=== PATIENT | male | born 1980 | race Caucasian/White ===

== ENCOUNTER 2024-09-22 14:31 | Inpatient (IN) | payer MEDICARE, SELFPAY ==
[2024-09-22] VITALS (14 sets, daily range): BP systolic 136–185; BP diastolic 84–122; BMI 22.2
[2024-09-22 09:02] LABS: % Basophils 0.4 % (0-2); % Immature Granulocytes 0.5 % (0-0.5); % Lymphocytes 6.1 % (20.5-51.1); % Monocytes 3.2 % (1.7-9.3); % Neutrophils 89.8 % (42.2-75.2); Absolute Basophils 0.1 10^3/uL (0-0.2); Absolute Immature Granulocytes 0.1 10^3/uL (0-0.05); Absolute Lymphocytes 0.9 10^3/uL (1.2-3.4); Absolute Monocytes 0.5 10^3/uL (0.1-0.6); Absolute Neutrophils 12.8 10^3/uL (1.4-6.5); Hematocrit 30.2 % (39.0-52.0); Hemoglobin 9.9 g/dL (13.0-18.0); Mean Corp Hgb Conc. 32.8 g/dL (33.0-37.0); Mean Corpuscular Hgb 28.9 pg (27.0-31.0); Mean Corpuscular Volume 88.3 fL (80.0-94.0); Mean Platelet Volume 11.3 fL (7.4-10.4); Nucleated Red Blood Cells % 0 % (-); Platelet Count 257 10^3/uL (130-400); Red Blood Cell Count 3.42 10^6/uL (4.70-6.10); White Blood Cell Count 14.2 10^3/uL (4.8-10.8)
[2024-09-22 09:34] LABS: ALT (SGPT) 35 U/L (0-50); AST (SGOT) 37 U/L (17-59); Albumin 4.1 g/dl (3.5-5.0); Alkaline Phosphatase 144 U/L (38-126); Blood Urea Nitrogen 40 mg/dl (9-20); Calcium 8.8 mg/dl (8.4-10.2); Carbon Dioxide 29 mmol/L (22-30); Chloride 103 mmol/L (98-107); Glucose 309 mg/dl (70-99); Potassium 4.8 mmol/L (3.5-5.1); Sodium 144 mmol/L (135-145); Total Bilirubin 0.8 mg/dl (0.2-1.3); Total Protein 6.8 g/dl (6.3-8.2); eGFR 58.15
[2024-09-22] MEDS: PEPCID 20 MG IV (11:17)
[2024-09-22] MEDS: ZOFRAN 4 MG IV (11:17)
[2024-09-22] MEDS: NSS 1000 IV ×2 (11:17→17:49)
--- NOTE | 2024-09-22 11:36 | ED.GENMED ---
History of Present Illness
<Rupert Acosta Jr., PA-C - Last Filed: 09/22/24 14:59>
General
Chief Complaint: Abdominal Symptoms
Source: patient
Exam Limitations: none
Time Seen by Provider: 09/22/24 10:20
Nursing documentation reviewed up to this point in time: agreed with
History of Present Illness
History of Present Illness:
43-year-old male past medical history of CHF, hypertension, diabetes presenting to the emergency department today with concerns of vomiting diarrhea over the past 3 days. Trouble keeping anything down by mouth. Denies any chest pain shortness of
breath. No abdominal pain.
Past History
<Rupert Acosta Jr., PA-C - Last Filed: 09/22/24 14:59>
Past History
ED Past Medical History: HTN and NIDDM
Social History
Tobacco: Smoker
Review of Systems
<Rupert Acosta Jr., PA-C - Last Filed: 09/22/24 14:59>
Review of Systems
Allergies reviewed?: Yes
All Other Systems: ROS reviewed and negative except as documented in HPI and ROS
Phy Exam
<Rupert Acosta Jr., PA-C - Last Filed: 09/22/24 14:59>
Physical Exam
Physical Exam:
GENERAL: Alert , in no apparent distress
EYE: pupils equal and reactive
NECK: Supple, no significant adenopathy.
ENT: o/p clr, mmm.
CARDIAC: Regular rate and rhythm .
LUNGS: Clear breath sounds bilaterally, no acute respiratory distress, no wheezes/rales/rhonchi
ABDOMEN: Soft, without focal tenderness, no r/g, no cvat
NEUROLOGICAL: Alert and oriented, no focal neuro deficits
SKIN: Warm and dry, skin intact.
MUSCULOSKELETAL: No edema, well perfused.
PSYCH: Normal and appropriate interaction.
Course
<Rupert Acosta Jr., NIXON - Last Filed: 09/22/24 14:59>
Orders/Labs/Results
Orders:
Orders
09/22/24 08:56
Complete Blood Count/With Diff Urgent
Comprehensive Metabolic Panel Urgent
Lipase Urgent
09/22/24 10:31
0.9% Sodium Chloride 1000 ml [Nss] 1,000 ml IV BOLUS
Famotidine [Pepcid] 20 mg IV NOW STA
Ondansetron Injectable [Zofran] 4 mg IV NOW STA
09/22/24 11:37
Bedside Glucose- Treatment ONCE
0.9% Sodium Chloride 500 ml [Nss] 500 ml IV BOLUS
09/22/24 11:48
Electrocardiogram (*1) Urgent
Reason for Study: Shortness of Breath
EKG- Treatment ONCE
09/22/24 11:49
NT-proBNP Urgent
09/22/24 13:11
CR Chest Portable - 1 View Urgent
Comment:
Reason For Exam: hypoxia
Reason Study Needs to be Portable: Unable to Transport
09/22/24 13:30
Insulin Human Regular [Novolin R] 7 units IV NOW STA
09/22/24 13:36
Add On- LAB Urgent
Tests Added?: lipase
09/22/24 13:43
Norovirus by PCR Routine
SEBASTIAN Source: Feces/Stool
Specimen Description:
Azithromycin 500 mg/250 ml [Zithromax Infusion] 500 mg in 250 ml IV NOW
CefTRIAXone [Rocephin] 2,000 mg IV NOW STA
09/22/24 13:56
Obtain Records As Directed
Dates of Information to be Released: 2024
Type of Information Requested: Discharge Summary
Consults
Comment: from [facility]
09/22/24 13:[address] Non Medication Order As Directed
Physician Order: please TT me when med rec complete
09/22/24 13:58
COVID-19 Antigen Urgent
Source: Nasal Swab
Lactic Acid Urgent
Troponin I Urgent
Influenza A+B Rapid Molecular Urgent
SEBASTIAN Source: Nasal Swab
Specimen Description:
09/22/24 13:59
Legionella Urinary Antigen Routine
SEBASTIAN Source: Urine
Specimen Description:
Strep pneumoniae Antigen Routine
SEBASTIAN Source: Urine
Specimen Description:
09/22/24 14:02
Admit/Transfer Patient As Directed
Co-Sign Provider:
Level of Care: Inpatient admission
Assign to:: Telemetry
Physician / Group: Jena Castillo
Diagnosis: hypoxic resp insufficiency
Reason for Telemetry: Chest Pain syndromes
Date to Stop Telemetry: 09/24/24
Time to Stop Telemetry: 11:00
Reason for Hospitalization: hypoxic resp insufficiency
Expected length of stay greater than two midnights?: Yes
ELOS- Estimated Length of Stay in days: 3
I certify the patient meets the requirements for IP care: Yes
PRN Pain Medication Management As Directed
May give lesser potent ordered pain med per pt: Yes
preference::
Protocol:: Medication orders for pain may be administered in a
manner that supports deferring to patient preference
when the pt is:
- Requesting an ordered lesser potent pain medication.
Least to most potent pain medications are defined
as: acetaminophen < NSAID < tramadol < opioids
(morphine, oxycodone, hydromorphone).
- Requesting a lesser dose of the same medication IF
ORDERED.
- Requesting a less intrusive route of administration
if both routes are prescribed by the provider (PO <
IV).
09/22/24 14:03
Code Status As Directed
Resuscitation Status: Full Code
09/22/24 14:04
C DIFF [C difficile Antigen & Toxins] Urgent
SEBASTIAN Source: Feces/Stool
Specimen Description:
Stool Culture Routine
SEBASTIAN Source: Feces/Stool
Specimen Description:
Sterile Water [Sterile Water For Injection] 20 ml .ROUTE .STK-MED
09/22/24 14:16
Norovirus by PCR Urgent
SEBASTIAN Source: Feces/Stool
Specimen Description:
09/22/24 14:19
Insulin Human Regular [Novolin R] 7 units SC NOW STA
09/22/24 14:21
Procalcitonin Routine
PCT Algorithmm Indication: Respiratory
09/22/24 14:29
Oseltamivir Phosphate [Tamiflu] 75 mg PO NOW STA
09/22/24 14:31
Prochlorperazine [Compazine] 5 mg IV NOW STA
09/24/24 11:00
DC Protocol for Telemetry ONCE
Abnormal Lab Results
09/22/24 09/22/24 09/22/24
08:56 11:58 13:58
WBC 14.2 H 10^3/uL
(4.8-10.8)
RBC 3.42 L 10^6/uL
(4.70-6.10)
Hgb 9.9 L g/dL
(13.0-18.0)
Hct 30.2 L %
(39.0-52.0)
MCHC 32.8 L g/dL
(33.0-37.0)
MPV 11.3 H fL
(7.4-10.4)
Abs Immat Gran (auto) 0.1 H 10^3/uL
(0-0.05)
Absolute Neuts (auto) 12.8 H 10^3/uL
(1.4-6.5)
Absolute Lymphs (auto) 0.9 L 10^3/uL
(1.2-3.4)
Neutrophils % 89.8 H %
(42.2-75.2)
Lymphocytes % 6.1 L %
(20.5-51.1)
BUN 40 H mg/dl
(9-20)
Creatinine 1.5 H mg/dL
(0.7-1.3)
Glucose 309 H mg/dl
(70-99)
Alkaline Phosphatase 144 H U/L
(38-126)
Troponin I 0.076 H* ng/ml
POC Glucose 284 H mg/dl
(70-99)
09/22/24 08:56
09/22/24 08:56
Vital Signs
Initial and Last Documented VS:
Initial Vital Signs
Temp Pulse Resp BP Pulse Ox
98.7 F 105 16 185/117 95
09/22/24 08:46 09/22/24 08:46 09/22/24 08:46 09/22/24 08:46 09/22/24 08:46
Last Documented Vital Signs
Temp Pulse Resp BP Pulse Ox
98.7 F 91 19 174/106 94
09/22/24 08:46 09/22/24 14:30 09/22/24 14:30 09/22/24 14:00 09/22/24 14:37
<Curtis Taylor MD - Last Filed: 09/22/24 13:38>
Orders/Labs/Results
Orders:
Orders
09/22/24 08:56
Complete Blood Count/With Diff Urgent
Comprehensive Metabolic Panel Urgent
Lipase Urgent
09/22/24 10:31
0.9% Sodium Chloride 1000 ml [Nss] 1,000 ml IV BOLUS
Famotidine [Pepcid] 20 mg IV NOW STA
Ondansetron Injectable [Zofran] 4 mg IV NOW STA
09/22/24 11:37
Bedside Glucose- Treatment ONCE
0.9% Sodium Chloride 500 ml [Nss] 500 ml IV BOLUS
09/22/24 11:48
Electrocardiogram (*1) Urgent
Reason for Study: Shortness of Breath
EKG- Treatment ONCE
09/22/24 11:49
NT-proBNP Urgent
09/22/24 13:11
CR Chest Portable - 1 View Urgent
Comment:
Reason For Exam: hypoxia
Reason Study Needs to be Portable: Unable to Transport
09/22/24 13:30
Insulin Human Regular [Novolin R] 7 units IV NOW STA
09/22/24 13:36
Add On- LAB Urgent
Tests Added?: lipase
09/22/24 13:43
Norovirus by PCR Routine
SEBASTIAN Source: Feces/Stool
Specimen Description:
Azithromycin 500 mg/250 ml [Zithromax Infusion] 500 mg in 250 ml IV NOW
CefTRIAXone [Rocephin] 2,000 mg IV NOW STA
09/22/24 13:56
Obtain Records As Directed
Dates of Information to be Released: 2024
Type of Information Requested: Discharge Summary
Consults
Comment: from [facility]
09/22/24 13:[address] Non Medication Order As Directed
Physician Order: please TT me when med rec complete
09/22/24 13:58
COVID-19 Antigen Urgent
Source: Nasal Swab
Lactic Acid Urgent
Troponin I Urgent
Influenza A+B Rapid Molecular Urgent
SEBASTIAN Source: Nasal Swab
Specimen Description:
09/22/24 13:59
Legionella Urinary Antigen Routine
SEBASTIAN Source: Urine
Specimen Description:
Strep pneumoniae Antigen Routine
SEBASTIAN Source: Urine
Specimen Description:
09/22/24 14:02
Admit/Transfer Patient As Directed
Co-Sign Provider:
Level of Care: Inpatient admission
Assign to:: Telemetry
Physician / Group: Jena Castillo
Diagnosis: hypoxic resp insufficiency
Reason for Telemetry: Chest Pain syndromes
Date to Stop Telemetry: 09/24/24
Time to Stop Telemetry: 11:00
Reason for Hospitalization: hypoxic resp insufficiency
Expected length of stay greater than two midnights?: Yes
ELOS- Estimated Length of Stay in days: 3
I certify the patient meets the requirements for IP care: Yes
PRN Pain Medication Management As Directed
May give lesser potent ordered pain med per pt: Yes
preference::
Protocol:: Medication orders for pain may be administered in a
manner that supports deferring to patient preference
when the pt is:
- Requesting an ordered lesser potent pain medication.
Least to most potent pain medications are defined
as: acetaminophen < NSAID < tramadol < opioids
(morphine, oxycodone, hydromorphone).
- Requesting a lesser dose of the same medication IF
ORDERED.
- Requesting a less intrusive route of administration
if both routes are prescribed by the provider (PO <
IV).
09/22/24 14:03
Code Status As Directed
Resuscitation Status: Full Code
09/22/24 14:04
C DIFF [C difficile Antigen & Toxins] Urgent
SEBASTIAN Source: Feces/Stool
Specimen Description:
Stool Culture Routine
SEBASTIAN Source: Feces/Stool
Specimen Description:
Sterile Water [Sterile Water For Injection] 20 ml .ROUTE .STK-MED
09/22/24 14:16
Norovirus by PCR Urgent
SEBASTIAN Source: Feces/Stool
Specimen Description:
09/22/24 14:19
Insulin Human Regular [Novolin R] 7 units SC NOW STA
09/22/24 14:21
Procalcitonin Routine
PCT Algorithmm Indication: Respiratory
09/22/24 14:29
Oseltamivir Phosphate [Tamiflu] 75 mg PO NOW STA
09/22/24 14:31
Prochlorperazine [Compazine] 5 mg IV NOW STA
09/24/24 11:00
DC Protocol for Telemetry ONCE
Abnormal Lab Results
09/22/24 09/22/24 09/22/24
08:56 11:58 13:58
WBC 14.2 H 10^3/uL
(4.8-10.8)
RBC 3.42 L 10^6/uL
(4.70-6.10)
Hgb 9.9 L g/dL
(13.0-18.0)
Hct 30.2 L %
(39.0-52.0)
MCHC 32.8 L g/dL
(33.0-37.0)
MPV 11.3 H fL
(7.4-10.4)
Abs Immat Gran (auto) 0.1 H 10^3/uL
(0-0.05)
Absolute Neuts (auto) 12.8 H 10^3/uL
(1.4-6.5)
Absolute Lymphs (auto) 0.9 L 10^3/uL
(1.2-3.4)
Neutrophils % 89.8 H %
(42.2-75.2)
Lymphocytes % 6.1 L %
(20.5-51.1)
BUN 40 H mg/dl
(9-20)
Creatinine 1.5 H mg/dL
(0.7-1.3)
Glucose 309 H mg/dl
(70-99)
Alkaline Phosphatase 144 H U/L
(38-126)
Troponin I 0.076 H* ng/ml
POC Glucose 284 H mg/dl
(70-99)
09/22/24 08:56
09/22/24 08:56
Vital Signs
Initial and Last Documented VS:
Initial Vital Signs
Temp Pulse Resp BP Pulse Ox
98.7 F 105 16 185/117 95
09/22/24 08:46 09/22/24 08:46 09/22/24 08:46 09/22/24 08:46 09/22/24 08:46
Last Documented Vital Signs
Temp Pulse Resp BP Pulse Ox
98.7 F 91 19 174/106 94
09/22/24 08:46 09/22/24 14:30 09/22/24 14:30 09/22/24 14:00 09/22/24 14:37
<Rupert Acosta Jr., PA-C - Last Filed: 09/22/24 14:59>
MDM/Problems Addressed
MDM/Problems Addressed:
43-year-old male presenting to the emergency department today with concerns of nausea vomiting diarrhea over the past 3 days. Difficulty tolerating by mouth. On arrival here mildly tachycardic and hypertensive. Not able to take his normal blood
pressure medication. Otherwise slight white count hemoglobin 9.9 not far from baseline. Creatinine 1.5 BUN of 40. Fluids were about to be started when we noticed that the patient's pulse ox seem to be dropping. Patient claims that he felt
somewhat short of breath and does have a history of heart failure concerning this the fluids were immediately stopped. He received less than 200 mL of fluid at this point. There was concern of fluid overload despite the patient's lack of oral
intake over the past few days. He was then given a dose of insulin to help with his elevated sugar level. Additional BNP was elevated significantly to greater than 27,000. Chest x-ray potential increased pulmonary vascular markings concern for
fluid overload. Holding on Lasix at this time as he also may be somewhat intravascular dehydrated as well and also may have an BELLO that we do not have any recent renal function test. Otherwise patient will need to be admitted due to hypoxemia and
multiple acute illnesses.
<Rupert Acosta Jr., PA-C - Last Filed: 09/22/24 14:59>
*Critical Care Note
Total Time (30-74mins, 75-104mins- exclusive of procedures): Not Applicable
ED Attending Note
<Rupert Acosta Jr., PA-C - Last Filed: 09/22/24 14:59>
-
Portions of this chart may have been created with voice recognition software.� Occasional wrong word or��sound alike� substitutions may have occurred due to the inherent limitations of voice recognition software.
<Curtis Taylor MD - Last Filed: 09/22/24 13:38>
ED Attending Note
Patient seen and examined by attending physician: Yes
ED Attending Note:
I have seen and evaluated the patient with a [id number] encounter. I have spoken to the advance practicer provider and involved in the medical history, the physical exam, medical decision making.
Evaluation and management service: agree unless noted differently below.
Results interpretation: agree unless noted differently below.
Focused HPI: 43-year-old male with a past medical history of hypertension, insulin-dependent diabetes, CHF who presents to the emergency room for evaluation of nausea and vomiting, diarrhea. Patient reports symptoms started 2 days ago and have been
constant. Because of his nausea and vomiting he has not been able to take fluids and he has not been able to take his Lasix. He says he has not been using his insulin because he has not been able to eat. Came to the emergency room to be
evaluated. He has also had some increased shortness of breath and coughing. He denies any weight gain. He denies any significant swelling of the legs.
Physical exam: Patient is awake and alert. He is not in distress. He is hypertensive, mildly tachycardic. He is hypoxic in the mid 80s requiring 2 L nasal cannula. Respiratory rate acceptable. He is afebrile. He has rales throughout all lung
veloz. He does have trace edema around the ankles. He has a small wound on the right second toe. He has no abdominal tenderness. Mucous membranes are slightly dry.
Medical Decision Makin-year-old male presents with nausea, vomiting, diarrhea and resultant medication noncompliance; he has now developed some shortness of breath and coughing as well. Vitals and exam as above. Labs were sent off including a
CBC which shows leukocytosis, CMP which shows creatinine of 1.5�prior baseline from 2014 and 0.6 but no more recent baseline available for comparison. His BUN is elevated which suggest some degree of dehydration. He is hyperglycemic to 309.
However he does appear to have some mild heart failure with hypoxia, rales on exam, proBNP of greater than 27,000. Chest x-ray showed no fatmata edema. 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
variability; he does have B-lines in both lungs consistent with some pulmonary edema. While history of GI losses would suggest intravascular hypovolemia findings concerning for decompensated heart failure on exam as well�he was given a small fluid
bolus will defer further fluids. Provide insulin for hyperglycemia. Will admit to hospitalist for further management of respiratory failure from suspected CHF as well as nausea/vomiting/diarrhea from suspected gastroenteritis.
Discharge Plan
Departure
Patient Disposition: Admit
Date of Disposition: 09/22/24
Time of Disposition: 14:02
Admit to doctor: Jonathan
Presentation/result/management discussed w/ accepting MD/DO: Hospitalist
Patient with high blood pressure during this ER visit?: No
Condition: Fair
Covid-19: Not Applicable
Discharge Problem:
CHF (congestive heart failure), Acute hypoxic respiratory failure, Nausea & vomiting
Interventions
Interventions:
*Risk Screen - Suicide Last Done: 09/22/24 08:47
*General Assessment Last Done: 09/22/24 11:17
*Neglect/Abuse Screening Last Done: 09/22/24 08:47
ED- Fall Risk Assessment Last Done: 09/22/24 11:17
*ED COVID-19 Vaccine History Last Done: 09/22/24 11:17
QX-Gicswt-Wjisywspdc Assessment Last Done: 09/22/24 11:17
[2024-09-22 11:59] LABS: Glucose - Point of Care 284 mg/dl (70-99)
[2024-09-22 12:20] LABS: NT-proBNP > 27000 pg/ml
--- NOTE | 2024-09-22 13:37 | HPS.HSE ---
Addendum entered and electronically signed by Jena Castillo MD 09/22/24 15:41:
Non-ischemic Troponin Elevation
-no chest pain
-give one time aspirin
-will continue to trend
Addendum entered and electronically signed by Jena Castillo MD 09/22/24 14:29:
Flu positive - explains symptoms
-will start Tamiflu
Original Note:
Family Physician
-
Family Physician: NOT KNOW UNKNOWN - PT DOES
Chief Complaint
-
vomiting and diarrhea
History of Present Illness
Mr. Edmund Marshall is a 43 yo man with hx essential HTN, HLD, DM, HF, hx recent renal failure requiring temporary dialysis, presents to the ER complaining of vomiting and diarrhea over past 3 days.
Patient states that several weeks ago he was hospitalized at [facility] for similar GI symptoms that resolved. He got fluids and then lasix. He was then hospitalized again 2 weeks ago for kidney failure with elevated potassium levels and
required brief dialysis.
He was feeling back to baseline until Thursday started to have vomiting and diarrhea. He has not been taking Lasix or Insulin because he has not been eating. Last time had had vomiting and diarrhea was just prior to coming into the ER. When asked
why he came to [place] and didn't go back to [facility], he states it is because he lives closer to here.
Patient denies fever. He has had some cough and congestion. No chest pain. No shortness of breath. No abdominal pain. No LE swelling. Denies weight gain.
Medical History
Past Medical History
Past Medical History: Reports Other (essential HTN, HLD, DM, HF)
Past Surgical History: Reports None
Social History
Tobacco: Former Smoker
Alcohol: Former
Family History
Family History: Not pertinent
Allergies / Home Medications
Allergies reflects when Allergies were last updated in [facility].
Home Medications with original date entered in [facility]
Allergy/Medication List:
*awaiting med rec
Review of Systems
-
History Source: Patient
A 12 point ROS was completed and negative except as noted: Yes
Physical Exam
Vital Signs
Vital Signs
Temp Pulse Resp BP Pulse Ox
98.7 F 102 10 176/107 91
09/22/24 08:46 09/22/24 13:27 09/22/24 13:27 09/22/24 13:27 09/22/24 13:27
Physical Exam
General: No Apparent Distress and Conversant
HEENT: PERRLA
Respiratory: Rales; No Wheezes
Cardiac: S1/S2, Regular Rhythm and JVD (difficult to appreciate JVD )
GI: Soft and Non Tender
Musculoskeletal: Other (trace pedal edema )
Skin: Warm and Dry; No Rash
Neuro: AO x 3
Psych: Calm
Laboratory Results
-
09/22/24 08:56
09/22/24 08:56
Laboratory Results
Total Bilirubin 0.8 mg/dl (0.2-1.3) 09/22/24 08:56
AST 37 U/L (17-59) 09/22/24 08:56
ALT 35 U/L (0-50) 09/22/24 08:56
Alkaline Phosphatase 144 U/L (38-126) H 09/22/24 08:56
Data Reviewed
-
Diagnostic Radiology: Report Reviewed by me
Lab Data: Labs Reviewed by me
Impression/Plan
-
Mr. Edmund Marshall is a 43 yo man with hx essential HTN, HLD, DM, HF, hx recent renal failure requiring temporary dialysis, presents to the ER complaining of vomiting and diarrhea over past 3 days. He is found to be hypoxic requiring 4L O2 in the
ER.
Triage VS: T 988, P 105, RR 16, BP 185/117, SpO2 95%
LABS: WBC 14.2, Hg 9.9, PLT 257, Na 144, K+ 4.8, BUN 40, Cr 1.5, Glucose 309, T. Bili 0.8, AST 37, ALT 35, Alk Phos 144, BNP > 67171
CXR -
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
EKG: sinus tachycardia
MAR: insulin 7units, NS 250cc, zofran 4mg IV x 1
Nausea/Vomiting/Diarrhea
-symptoms on-going over past 2 days
-Covid and Flu pending
-will also test Norovirus, C. Diff and stool culture
-supportive care with gentle IVF
-clear liquid diet
Hypoxic Respiratory Insufficiency
Community Acquired Pneumonia
-bedside POC US per ER showed signs volume overload although patient does not look overloaded on exam with normal respirations and I cannot appreciate JVD
-very gentle fluids as above (patient instructed to report if increased work of breathing)
-concern for pneumonia versus aspiration pneumonitis with recent vomiting
-continue antibiotics Cef/Azithro
-follow up Procalcitonin
-O2 support as needed
Heart Failure, Unknown EF
-as above, patient doesn't seem clinically to be in acute exacerbation
-hold home Lasix (awaiting home med rec)
-will repeat echo here
BELLO versus CKD
Recent hospitalization for renal Failure at [facility]
-*requesting outside records
-gentle IVF as above
-hold [employer] lasix
DM
-F/U A1c
-patient states he takes 14 units 70/30 in AM and 7 in evening
-will start NPH 5 units BID here for now with ISS low
-ISS low
HLD
*awaiting home med rec
DVT PPx Hep subQ
FULL CODE
76 minutes spent on patient care
[2024-09-22] MEDS: ROCEPHIN 2000 MG IV (14:06)
[2024-09-22] MEDS: ZITHROMAX INFUSION 250 IV (14:06)
[2024-09-22] MEDS: NOVOLIN R 7 UNITS SC (14:21)
[2024-09-22 14:26] LABS: COVID-19 Antigen Negative (Negative)
[2024-09-22 14:29] LABS: Lactic Acid 1.3 mmol/L (0.7-2.0)
[2024-09-22] MEDS: COMPAZINE 5 MG IV (14:51)
[2024-09-22] MEDS: TAMIFLU 75 MG PO (14:51)
[2024-09-22 14:55] LABS: Troponin I 0.076 ng/ml
[2024-09-22 15:14] LABS: Procalcitonin 0.24 ng/ml (0.0-0.25)
[2024-09-22 15:16] LABS: Lipase 53 U/L (23-300)
[2024-09-22] MEDS: LOW STRENGTH ASPIRIN 162 MG PO (16:10)
[2024-09-22 16:17] LABS: Glucose - Point of Care 218 mg/dl (70-99)
[2024-09-22] MEDS: NOVOLOG FLEXPEN-LOW RESISTANCE SC (19:59)
[2024-09-22 20:03] LABS: Glucose - Point of Care 132 mg/dl (70-99)
[2024-09-22] MEDS: MUCINEX 600 MG PO (20:46)
[2024-09-22] MEDS: COREG 6.25 MG PO (20:46)
[2024-09-22] MEDS: HEPARIN 5000 UNITS SC (20:47)
[2024-09-22 21:31] LABS: Troponin I 0.083 ng/ml
[2024-09-23] VITALS (9 sets, daily range): BP systolic 107–178; BP diastolic 67–96; BMI 22.9
[2024-09-23] MEDS: TAMIFLU 75 MG PO ×3 (00:32→20:53)
[2024-09-23 05:18] LABS: Troponin I 0.054 ng/ml
[2024-09-23] MEDS: NSS 1000 IV (05:43)
[2024-09-23 05:55] LABS: % Basophils 0.4 % (0-2); % Eosinophils 0.8 % (0-6); % Immature Granulocytes 0.6 % (0-0.5); % Lymphocytes 12.4 % (20.5-51.1); % Monocytes 6.1 % (1.7-9.3); % Neutrophils 79.7 % (42.2-75.2); Absolute Eosinophils 0.1 10^3/uL (0-0.7); Absolute Immature Granulocytes 0.1 10^3/uL (0-0.05); Absolute Lymphocytes 1.3 10^3/uL (1.2-3.4); Absolute Monocytes 0.7 10^3/uL (0.1-0.6); Absolute Neutrophils 8.6 10^3/uL (1.4-6.5); Hematocrit 25.2 % (39.0-52.0); Hemoglobin 8.2 g/dL (13.0-18.0); Mean Corp Hgb Conc. 32.5 g/dL (33.0-37.0); Mean Corpuscular Hgb 29.7 pg (27.0-31.0); Mean Corpuscular Volume 91.3 fL (80.0-94.0); Mean Platelet Volume 11.7 fL (7.4-10.4); Nucleated Red Blood Cells % 0 % (-); Platelet Count 200 10^3/uL (130-400); Red Blood Cell Count 2.76 10^6/uL (4.70-6.10); Red Cell Dist. Width 13.7 % (11.5-14.5); White Blood Cell Count 10.8 10^3/uL (4.8-10.8)
[2024-09-23 06:07] LABS: ALT (SGPT) 28 U/L (0-50); AST (SGOT) 25 U/L (17-59); Albumin 2.8 g/dl (3.5-5.0); Alkaline Phosphatase 111 U/L (38-126); Blood Urea Nitrogen 31 mg/dl (9-20); Calcium 7.8 mg/dl (8.4-10.2); Carbon Dioxide 30 mmol/L (22-30); Chloride 101 mmol/L (98-107); Estimated Creatinine Clearance 75 ml/min; Glucose 163 mg/dl (70-99); Magnesium 2.1 mg/dl (1.6-2.3); Potassium 4.2 mmol/L (3.5-5.1); Sodium 137 mmol/L (135-145); Total Bilirubin 0.6 mg/dl (0.2-1.3); Total Protein 5.5 g/dl (6.3-8.2); eGFR > 60.00
[2024-09-23] MEDS: MUCINEX 600 MG PO ×2 (08:43→20:53)
[2024-09-23] MEDS: HEPARIN 5000 UNITS SC ×2 (08:44→20:54)
[2024-09-23] MEDS: NOVOLOG FLEXPEN-LOW RESISTANCE SC (09:01)
[2024-09-23 09:06] LABS: Glucose - Point of Care 177 mg/dl (70-99)
[2024-09-23] MEDS: NOVOLOG FLEXPEN-LOW RESISTANCE 1 UNITS SC (09:19)
[2024-09-23] MEDS: COREG 6.25 MG PO ×2 (09:46→20:53)
--- NOTE | 2024-09-23 10:23 | CM ---
CM reviewed medical records. CM was consulted to discuss BCARES consult with patient. CM requested clarification regarding consult and patient's drug and alcohol abuse history.
[2024-09-23 13:22] LABS: Glucose - Point of Care 225 mg/dl (70-99)
[2024-09-23] MEDS: NOVOLOG FLEXPEN-LOW RESISTANCE 2 UNITS SC ×2 (13:23→17:19)
[2024-09-23] MEDS: STERILE WATER FOR INJECTION 10 ML IV (14:23)
[2024-09-23] MEDS: ZITHROMAX 500 MG PO (14:23)
[2024-09-23] MEDS: ROCEPHIN 1000 MG IV (14:23)
--- NOTE | 2024-09-23 14:30 | PTCARENOTE ---
pt admitted to 2N from ED. pt O2 Sat was 88-89% on room air on admission to this unit so nurse placed on 2L. pt states no loose stools since coming to ED yesterday and has been tolerating liquid diet. MD made aware. orders adjusted. pt aaox3 has
glasses within the room but very poor eyesight. pt remains on IVF going at 80ml/hr.
--- NOTE | 2024-09-23 14:55 | W.PN.HOSP.TC ---
Today's Communication/Plan
-
stop fluids, adv diet - monitor scr
await records from OSH
cont abx, tamiflu
Coreg
Hold lasix for now
restart diet
Assessment / Plan
Assessment / Plan
Physical Exam
General: No Apparent Distress and Conversant
HEENT: PERRLA
Respiratory: Rales; No Wheezes
Cardiac: S1/S2, Regular Rhythm
GI: Soft and Non Tender
Musculoskeletal: Other (trace pedal edema )
Skin: Warm and Dry; No Rash
Neuro: AO x 3
Psych: Calm
Nausea/Vomiting/Diarrhea
-probably due to Flu
-resolved
-advance to LRD and monitor
#Sepsis
#Flu Positive
#CAP
-supportive care
tamiflu
#Hypoxic Respiratory Insufficiency
Community Acquired Pneumonia
-continue antibiotics Cef/Azithro
-wean o2 as tolerated
-see plan above
-O2 support as needed
Non-ischemic Troponin Elevation
-no chest pain
-give one time aspirin
-2/2 to sepsis
#Anemia
acute blood loss anemia v dilution
-monitor
no obvious bleeding at this time
HFrEF
-EF 30-35%; Moderate concentric LVH
-hold home Lasix (awaiting home med rec)
-will repeat echo here
BELLO versus CKD, improving
-ctm
-stop fluids as can eat now and n/v/d improved in setting of HFrEF
-hold lasix
Recent hospitalization for renal Failure at [facility]
-*requesting outside records
#Meth abuse
#Polysubstance Abuse
-educated on cessation
-CM - BCARES consulted
DM
-F/U A1c - 7
-patient states he takes 14 units 70/30 in AM and 7 in evening
-ISS low
HLD
DVT PPx Hep subQ
FULL CODE
Anticipated Discharge: 24 - 48 hours
Subjective/Interval History
-
Date of Service: September 23, 2024
Feels better
Objective Data
-
Labs:
Laboratory Results
09/23/24
05:16
WBC 10.8
Hgb 8.2 L
Hct 25.2 L
Plt Count 200 D
Sodium 137
Potassium 4.2
Chloride 101
Carbon Dioxide 30
BUN 31 H
Creatinine 1.3
Glucose 163 H
Calcium 7.8 L
Total Bilirubin 0.6
AST 25
ALT 28
Alkaline Phosphatase 111
Vital Signs:
Vital Signs
Temp Pulse Resp BP Pulse Ox
98.3 F 88 16 142/84 91
09/23/24 13:16 09/23/24 13:16 09/23/24 13:16 09/23/24 13:16 09/23/24 14:34
I&O
09/22/24 09/23/24 09/24/24
06:59 06:59 06:59
Output Total 850 / 850
Balance -850 / -850
Review of Systems
-
History Source: Patient
All other systems: Not reviewed unless documented
Data Reviewed
-
Diagnostic Radiology: Report Reviewed by me
Labs: Labs Reviewed by me
[2024-09-23 17:19] LABS: Glucose - Point of Care 230 mg/dl (70-99)
[2024-09-23 21:47] LABS: Glucose - Point of Care 282 mg/dl (70-99)
[2024-09-23] MEDS: NOVOLOG MIX 70/30 FLEXPEN SC (22:02)
[2024-09-23] MEDS: ZOFRAN 4 MG IV (22:57)
[2024-09-23] MEDS: FLUSH (NSS) 2 FLUSH IV (22:57)
--- NOTE | 2024-09-23 23:09 | PTCARENOTE ---
Patient feeling nauseous. Karl provided.
[2024-09-24] VITALS (7 sets, daily range): BP systolic 142–162; BP diastolic 76–97; BMI 23.1
[2024-09-24] MEDS: COMPAZINE 5 MG IV (02:02)
[2024-09-24] MEDS: FLUSH (NSS) 2 FLUSH IV (02:04)
--- NOTE | 2024-09-24 02:21 | PTCARENOTE ---
Addendum entered by Frank Martinez RN 09/24/24 05:58:
Patient feeling better, much less nauseous.
Original Note:
Patient vomiting mostly mucous. Advised covering provider. Orders received.
[2024-09-24 07:50] LABS: Glucose - Point of Care 225 mg/dl (70-99)
[2024-09-24 07:50] LABS: Mean Corpuscular Hgb 29.6 pg (27.0-31.0); Mean Corpuscular Volume 92.6 fL (80.0-94.0); Platelet Count 187 10^3/uL (130-400); Red Cell Dist. Width 13.5 % (11.5-14.5); White Blood Cell Count 10.2 10^3/uL (4.8-10.8)
[2024-09-24 08:21] LABS: ALT (SGPT) 243 U/L (0-50); AST (SGOT) 244 U/L (17-59); Albumin 2.8 g/dl (3.5-5.0); Alkaline Phosphatase 125 U/L (38-126); Blood Urea Nitrogen 35 mg/dl (9-20); Calcium 8.2 mg/dl (8.4-10.2); Carbon Dioxide 26 mmol/L (22-30); Chloride 99 mmol/L (98-107); Estimated Creatinine Clearance 46 ml/min; Glucose 229 mg/dl (70-99); Potassium 4.8 mmol/L (3.5-5.1); Sodium 134 mmol/L (135-145); Total Bilirubin 0.7 mg/dl (0.2-1.3); Total Protein 5.3 g/dl (6.3-8.2); eGFR 36.72
[2024-09-24] MEDS: NOVOLOG FLEXPEN-LOW RESISTANCE 2 UNITS SC ×2 (08:52→17:38)
[2024-09-24] MEDS: COREG 6.25 MG PO ×2 (08:53→19:14)
[2024-09-24] MEDS: HEPARIN 5000 UNITS SC ×2 (08:53→19:13)
[2024-09-24] MEDS: TAMIFLU 75 MG PO (08:53)
[2024-09-24] MEDS: MUCINEX 600 MG PO ×2 (08:53→19:13)
[2024-09-24] MEDS: NOVOLOG MIX 70/30 FLEXPEN SC ×2 (09:03→22:06)
[2024-09-24] MEDS: LR 500 IV (12:38)
--- NOTE | 2024-09-24 12:44 | PTCARENOTE ---
pt intermittently nauseous overnight. no nausea/vomiting at this time. pt with elevated bp this afternoon for pct. documented in vitals. BP rechecked for this nurse. 157/84. pt receiving LR fluid bolus at this time and will be on an hourly rate once
bolus is complete. pt states family is bringing him clothes and has requested to be able to shower. MD made aware and OK to shower orders were given.
[2024-09-24] MEDS: ROCEPHIN 1000 MG IV (13:05)
[2024-09-24] MEDS: STERILE WATER FOR INJECTION 10 ML IV (13:06)
[2024-09-24] MEDS: ZOFRAN 4 MG IV (13:06)
[2024-09-24] MEDS: LR 1000 IV (13:07)
[2024-09-24] MEDS: FLUSH (NSS) 10 FLUSH IV ×2 (13:13→13:18)
[2024-09-24] MEDS: APRESOLINE 10 MG IV (13:17)
--- NOTE | 2024-09-24 13:21 | PTCARENOTE ---
Addendum entered by Isatu Tineo RN 09/24/24 14:12:
chest Xray done at bedside. Results in reports. troponin resulted at 0.091.MD made aware. pt fluids on hold at this time. Nephrology consulted.
Original Note:
pt rating 4/10 chest pain and pressure. BP of 184/106 and some nausea. MD made aware. prn hydralazine added to MAR. zofran and hydralazine given to pt. Manual BP of 178/92 obtained by this nurse. EKG done at bedside as ordered and troponins drawn.
IVF going at 60ml/hr through L forearm site at this time. pt states chest pain is going away but was more pronounced with feelings of nausea.
--- NOTE | 2024-09-24 13:24 | W.PN.HOSP.TC ---
Today's Communication/Plan
-
abx, tamiflu
ruq sono, echo
cxr
decide on diuresis v fluids - await cxr
renal consulted for assistance due to recent HD use
Assessment / Plan
Assessment / Plan
Physical Exam
General: No Apparent Distress and Conversant
HEENT: PERRLA
Respiratory: Rales; No Wheezes
Cardiac: S1/S2, Regular Rhythm
GI: Soft and Non Tender
Musculoskeletal: Other (trace pedal edema )
Skin: Warm and Dry; No Rash
Neuro: AO x 3
Psych: Calm
Nausea/Vomiting/Diarrhea
-probably due to Flu
-improved
-advance to LRD and monitor
#Sepsis
#Flu Positive
#CAP
-supportive care
tamiflu
#Hypoxic Respiratory Insufficiency
Community Acquired Pneumonia
-continue antibiotics Cef/Azithro
-wean o2 as tolerated
-see plan above
-O2 support as needed
Non-ischemic Troponin Elevation
-now chest pain
-chest pain more than likely pleuretic and due to acute infection
-f/u cxr, trops, ekg
BELLO versus CKD, improving
-ctm
-stop fluids
-elevated bnp
-may need aggresive diuresis
-renal consulted
-f/u cxr
HFrEF
-EF 30-35%; Moderate concentric LVH
-hold home Lasix until further data arrives, then may restart
-will repeat echo here
#Anemia
acute blood loss anemia v dilution
-monitor
no obvious bleeding at this time
#hyponatremia
-monitor
#Transaminitis
infection v dili v congestive hepatopathy
-f/u ruq sono
Recent hospitalization for renal Failure at [facility]
-*requesting outside records
#Meth abuse
#Polysubstance Abuse
-educated on cessation
-CM - [facility] consulted
DM
-F/U A1c - 7
-patient states he takes 14 units 70/30 in AM and 7 in evening
-ISS low
HLD
DVT PPx Hep subQ
FULL CODE
Total time spent on today's encounter was 50 minutes which included time spent in counseling the patient/family regarding diagnosis and treatment plan as listed above, goals of care, and symptom management. Case was discussed with nursing staff,
specialists, and care coordinators/case management. All labs and imaging personally reviewed by me. Remainder the time spent in detailed review of previous records, lab data, imaging, and other medical provider documentation.
Anticipated Discharge: > 48 hours
Subjective/Interval History
-
Date of Service: September 24, 2024
chest pain this afternoon, worsening bello.
Objective Data
-
Labs:
Laboratory Results
09/24/24
05:43
WBC 10.2
Hgb 8.0 L
Hct 25.0 L
Plt Count 187
Sodium 134 L
Potassium 4.8
Chloride 99
Carbon Dioxide 26
BUN 35 H
Creatinine 2.2 H
Glucose 229 H
Calcium 8.2 L
Total Bilirubin 0.7
AST 244 H
ALT 243 H
Alkaline Phosphatase 125
Vital Signs:
Vital Signs
Temp Pulse Resp BP Pulse Ox
99.4 F 88 16 184/106 93
09/24/24 11:05 09/24/24 12:49 09/24/24 11:05 09/24/24 13:17 09/24/24 11:07
I&O
09/23/24 09/24/24 09/25/24
06:59 06:59 06:59
Intake Total 1000 / 1000
Output Total 850 / 850
Balance -850 / -850 1000 / 1000
Review of Systems
-
History Source: Patient
All other systems: Not reviewed unless documented
Data Reviewed
-
Diagnostic Radiology: Report Reviewed by me
Labs: Labs Reviewed by me
[2024-09-24 13:25] LABS: Glucose - Point of Care 278 mg/dl (70-99)
[2024-09-24] MEDS: NOVOLOG FLEXPEN-LOW RESISTANCE 3 UNITS SC (13:33)
[2024-09-24] MEDS: ZITHROMAX 500 MG PO (13:34)
[2024-09-24 14:11] LABS: Troponin I 0.091 ng/ml
--- NOTE | 2024-09-24 15:33 | W.CON.NEPH ---
Consultation
-
Date/Time Consultation Requested: 09/24/24 1328
Date/Time Consultation Performed: 09/24/24 1530
Requesting Provider: Mainor Mario
Performing Provider: Rosmery Fregoso
Reason for Consultation: BELLO
Medical History
-
Chief Complaint: vomiting., diarrhea
History of Present Illness:
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
at [facility] with a baseline creatinine of 1.2-1.4, presents to the ER on 09/22 with complaining of vomiting and diarrhea over past 3 days.
patient reports having diabetes for 20 years and not very well controlled. He was recently discharge from incarceration and had multiple admissions in the last several weeks. last 2 admissions have been at [facility] initially with the
GI symptoms that improved with the fluids and received Lasix, had another admission 2 weeks ago where had persistent hyperkalemia requiring dialysis and ARB has been discontinued.
he found to be positive with the flow and suspect symptoms are related to it and he also noted to have community-acquired pneumonia antibiotics has been given by primary team. his creatinine on admission was at 1.5 improved to 1.3 however today is
at 2.2 hence nephrology was consulted.
He reports unable to tolerate and IV fluids with the symptoms of chest tightness and nausea. His oral intake has been also seem to be limited. Denies any vomiting. No abdominal pain. Diarrhea has resolved. No active chest pain or shortness of
breath and no lower extremity edema. No dysuria however does report decrease in urine output lately.
Past Medical History
essential HTN, HLD, DM, HF With reduced EF 30-35%
Security stage II versus 3 Baseline creatinine 1.2-1.4
Social History
Tobacco: Former Smoker
Alcohol: Former
Drug: Former User (meth)
Personal: Single
Living: With Family
Employment: Other ( recently released from incarceration)
Family History
no CKD
Father with diabetes
Family History: Not Pertinent
Allergies / Home Medications
Allergy/AdvReac Type Severity Reaction Status Date / Time
venom-honey bee Allergy Hives Verified 08/05/14 03:30
[bee venom (honey bee)]
�Medication �Instructions �Recorded �Confirmed �Type
carvedilol 6.25 mg tablet (Coreg) 6.25 mg PO BID 09/22/24 09/22/24 History
furosemide 40 mg tablet (Lasix) 40 mg PO DAILY 09/22/24 09/22/24 History
insulin aspar prt-insulin aspart 7 unit SC HS 09/22/24 09/22/24 History
100 unit/mL (70-30) subcutaneous
soln (Novolog Mix 70-30 U-100
Insuln)
insulin aspar prt-insulin aspart 14 unit SC DAILY 09/22/24 09/22/24 History
100 unit/mL (70-30) subcutaneous
soln (Novolog Mix 70-30 U-100
Insuln)
Review of Systems
-
all complete Review of system have been inquired and found negative other than stated in HPI
Physical Exam
Vital Signs
Vital Signs
Temp Pulse Resp BP Pulse Ox
99.4 F 88 16 184/106 93
09/24/24 11:05 09/24/24 12:49 09/24/24 11:05 09/24/24 13:17 09/24/24 11:07
Lab Results
WBC 10.2 10^3/uL (4.8-10.8) 09/24/24 05:43
RBC 2.70 10^6/uL (4.70-6.10) L 09/24/24 05:43
Hgb 8.0 g/dL (13.0-18.0) L 09/24/24 05:43
Hct 25.0 % (39.0-52.0) L 09/24/24 05:43
Plt Count 187 10^3/uL (130-400) 09/24/24 05:43
Sodium 134 mmol/L (135-145) L 09/24/24 05:43
Potassium 4.8 mmol/L (3.5-5.1) 09/24/24 05:43
Chloride 99 mmol/L (98-107) 09/24/24 05:43
Carbon Dioxide 26 mmol/L (22-30) 09/24/24 05:43
BUN 35 mg/dl (9-20) H 09/24/24 05:43
Creatinine 2.2 mg/dL (0.7-1.3) H 09/24/24 05:43
eGFR 36.72 09/24/24 05:43
Glucose 229 mg/dl (70-99) H 09/24/24 05:43
Calcium 8.2 mg/dl (8.4-10.2) L 09/24/24 05:43
Nbs-V-Vhqpeuvkhoi Pept > 32841 pg/ml 09/22/24 11:49
Albumin 2.8 g/dl (3.5-5.0) L 09/24/24 05:43
echo:
CONCLUSIONS
Normal left ventricular chamber size. Moderately reduced left ventricular
systolic function. Left ventricular ejection fraction is 30-35% by visual
assessment. Global hypokinesis. Moderate concentric left ventricular
hypertrophy. Normal diastolic function.
Structurally normal mitral valve. Mitral valve opens normally. Moderate mitral
regurgitation.
Indexed LA volume is moderately abnormal (42-48 mL/m2).
Possible functional bicuspid or tricuspid with fused raphe. There is adequate
leaflet excursion. Trace aortic regurgitation is seen.
Structurally normal tricuspid valve. Tricuspid valve opens normally. Mild
tricuspid regurgitation. Estimated pulmonary artery pressure of 35 mmHg.
Assuming a right atrial pressure of 8 mmHg.
CXR:
IMPRESSION:
Findings suggesting mild right infrahilar pneumonia. Stable.
Physical Exam
General: Awake, Alert, Oriented, AOx3, No Distress and Nontoxic
HEENT: EOMI, Anicteric, Neck Supple and No JVD
Respiratory: Clear, Normal Excursion and Nonlabored Respirations
Cardiac: S1/S2 and Regular Rate/Rhythm
Breast: Deferred by me
Abdomen: Soft, Nontender and Nondistended
Musculoskeletal: No Cyanosis and No Edema
Skin: No Rash
Neuro: Nonfocal/Grossly Intact
Psych: Mood/afflect pleasant, Insight/judgement good and Appropriate
Data Reviewed
-
Radiology: Report Reviewed by me and Discussed with Patient
Labs: Labs Reviewed by me, Discussed with Nurse and Discussed with Patient
Assessment/Plan
-
IMP:
Nausea/Vomiting/Diarrhea
INfluenza A
BELLO versus CKD 2 baseline cr 1.2-1.4
Sepsis
Acute Hypoxic Respiratory Insufficiency
Community Acquired Pneumonia
Non-ischemic Troponin Elevation
HFrEF-EF 30-35%; Moderate concentric LVH
Anemia
hyponatremia
Transaminitis
Recent hospitalization for renal Failure, resistant hyperkalemia at [facility]-was on HD briefly
Meth abuse
Polysubstance Abuse
DM
HLD
Plan:
A/w GI symp, noted Flu and also with resp failure with PNA
check UA and Fena, U PCR, suspect her may have underlying diabetic nephropathy
check renal US and follow bladder scan
unable to give IVF since pt reports not able to tolerate
BNP is high but stable resp status, echo noted
monitor daily wts, pen lasix
Bp labile, cont coreg, off ARB on recent admit for high k
follow labs
adjust meds changing GFR
d/w pt and nursing
reviewed records from [facility]
[2024-09-24] MEDS: TYLENOL 650 MG PO (16:14)
--- NOTE | 2024-09-24 16:15 | CM ---
Met with pt at bedside
Pt reports he lives with his brother in a 2 story home; 2 steps to enter, 15 steps to 2nd fl
Independent with ADL's, unemployed
DME - none
SNF/HH - no past hx
Has ride at discharge
PCP - [facility]
Pharm - [facility]
CM consult for [facility] - discussed with pt - would like referral placed
Spoke with Vj from [facility] - referral made
Plan - TBD - CM will follow for discharge needs
[2024-09-24 16:37] LABS: Urine Albumin 4+ (Neg - Trace); Urine Bilirubin Negative (Negative); Urine Character Clear (Clear); Urine Color Yellow; Urine Glucose 3+ (Negative); Urine Ketone Negative (Negative); Urine Leukocyte Negative (Negative); Urine Nitrite Negative (Negative); Urine Occult Blood 3+ (Negative); Urine Specific Gravity 1.025 (<1.030); Urine Urobilinogen Negative (Neg - 1+)
[2024-09-24 17:04] LABS: Urine Granular Cast 0-2 /LPF (0); Urine Squamous Cell 0-2 /LPF (Few)
[2024-09-24 17:05] LABS: Urine Sodium 61 mmol/L (30-90)
[2024-09-24 17:06] LABS: Urine Bacteria Few (Negative)
[2024-09-24 17:13] LABS: Glucose - Point of Care 215 mg/dl (70-99)
[2024-09-24 18:09] LABS: Protein/creatinine Ratio 6.9; Urine Protein 812 mg/dl
[2024-09-24] MEDS: TAMIFLU 30 MG PO (19:13)
[2024-09-24 21:27] LABS: Glucose - Point of Care 181 mg/dl (70-99)
[2024-09-24 23:10] LABS: Troponin I 0.067 ng/ml
[2024-09-25 03:10] VITALS: BP 162/92
[2024-09-25 06:00] VITALS: BMI 22.6
[2024-09-25 07:29] VITALS: BP 179/111
[2024-09-25 07:29] LABS: Glucose - Point of Care 161 mg/dl (70-99)
[2024-09-25] MEDS: NOVOLOG FLEXPEN-LOW RESISTANCE SC ×2 (07:43→15:08)
[2024-09-25] MEDS: TAMIFLU 30 MG PO (07:44)
[2024-09-25] MEDS: APRESOLINE 10 MG IV (07:45)
[2024-09-25] MEDS: MUCINEX 600 MG PO ×2 (07:45→20:12)
[2024-09-25] MEDS: COREG 6.25 MG PO (07:45)
[2024-09-25] MEDS: HEPARIN 5000 UNITS SC (07:46)
[2024-09-25 08:10] LABS: Hematocrit 28.4 % (39.0-52.0); Hemoglobin 9.3 g/dL (13.0-18.0); Mean Corp Hgb Conc. 32.7 g/dL (33.0-37.0); Mean Corpuscular Hgb 29.1 pg (27.0-31.0); Mean Corpuscular Volume 88.8 fL (80.0-94.0); Mean Platelet Volume 11.9 fL (7.4-10.4); Platelet Count 224 10^3/uL (130-400); Red Cell Dist. Width 13.5 % (11.5-14.5); White Blood Cell Count 7.3 10^3/uL (4.8-10.8)
[2024-09-25 08:22] LABS: Troponin I 0.048 ng/ml
[2024-09-25 08:24] LABS: ALT (SGPT) 267 U/L (0-50); AST (SGOT) 108 U/L (17-59); Albumin 3.2 g/dl (3.5-5.0); Alkaline Phosphatase 145 U/L (38-126); Blood Urea Nitrogen 28 mg/dl (9-20); Calcium 8.5 mg/dl (8.4-10.2); Carbon Dioxide 27 mmol/L (22-30); Chloride 101 mmol/L (98-107); Estimated Creatinine Clearance 71 ml/min; Glucose 182 mg/dl (70-99); Sodium 138 mmol/L (135-145); Total Bilirubin 0.6 mg/dl (0.2-1.3); Total Protein 6.1 g/dl (6.3-8.2); eGFR > 60.00
--- NOTE | 2024-09-25 08:57 | CM ---
Addendum entered by Steph Jha 09/25/24 14:10:
Received call from Magda from [employer] - reports had spoken with pt
Requested pt be provided with phone number for [facility] at [facility] - [phone]
Pt given information
Original Note:
Spoke with Magda from [employer]
Updated - reports she will reach out to pt to assess needs
Plan - TBD; CM will follow for needs
[2024-09-25] MEDS: NOVOLOG MIX 70/30 FLEXPEN 14 UNITS SC (11:19)
[2024-09-25 11:24] VITALS: BP 109/74
--- NOTE | 2024-09-25 12:02 | W.PN.HOSP.TC ---
Today's Communication/Plan
-
renal recs - monitor renal function
wean o2
abx
Assessment / Plan
Assessment / Plan
Physical Exam
General: No Apparent Distress and Conversant
HEENT: PERRLA
Respiratory: Rales; No Wheezes
Cardiac: S1/S2, Regular Rhythm
GI: Soft and Non Tender
Musculoskeletal: Other (trace pedal edema )
Skin: Warm and Dry; No Rash
Neuro: AO x 3
Psych: Calm
Nausea/Vomiting/Diarrhea
-probably due to Flu
-improved
-advance to LRD and monitor - tolerating
#Sepsis
#Flu Positive
#CAP
-supportive care
tamiflu
abx
#Acute Hypoxic Respiratory Failure, resolved
-Community Acquired Pneumonia, Flu
-continue antibiotics Cef/Azithro
-weaned off o2
-see plan above
-O2 support as needed
Non-ischemic Troponin Elevation
-most likely 2/2 to sepsis
-chest pain, more than likely pleuritic
-ECHO with poor EF although no wall motion abnormality
-F/u outpt with cardiology
BELLO versus CKD, improving again
-ctm
-renal consulted, has been on HD prior to this admission
-f/u with renal - ordered labs
Asymptomatic bacteruria
-ntd
HFrEF
-EF 30-35%; Moderate concentric LVH
-hold home Lasix until further data arrives, then may restart
-will repeat echo here
#Anemia
acute blood loss anemia v dilution
-monitor
no obvious bleeding at this time
#hyponatremia
-monitor
#Transaminitis
infection v dili v congestive hepatopathy
-f/u ruq sono
Recent hospitalization for renal Failure at [facility]
-*requesting outside records
#Meth abuse
#Polysubstance Abuse
-educated on cessation
-CM - [facility] consulted
DM
-F/U A1c - 7
-patient states he takes 14 units 70/30 in AM and 7 in evening
-ISS low
HLD
DVT PPx Hep subQ
FULL CODE
Anticipated Discharge: 24 - 48 hours
Subjective/Interval History
-
Date of Service: September 25, 2024
Attending to wean off O2
Objective Data
-
Labs:
Laboratory Results
09/25/24
07:43
WBC 7.3
Hgb 9.3 L
Hct 28.4 L
Plt Count 224
Sodium 138
Potassium 4.0
Chloride 101
Carbon Dioxide 27
BUN 28 H
Creatinine 1.4 H
Glucose 182 H
Calcium 8.5
Total Bilirubin 0.6
AST 108 H
ALT 267 H
Alkaline Phosphatase 145 H
Vital Signs:
Vital Signs
Temp Pulse Resp BP Pulse Ox
98.7 F 87 18 179/111 97
09/25/24 07:29 09/25/24 07:45 09/25/24 07:29 09/25/24 07:45 09/25/24 08:15
I&O
09/24/24 09/25/24 09/26/24
06:59 06:59 06:59
Intake Total 1000 / 1000 970 / 970
Output Total 1425 / 1425
Balance 1000 / 1000 -455 / -455
Review of Systems
-
History Source: Patient
All other systems: Not reviewed unless documented
Data Reviewed
-
Diagnostic Radiology: Report Reviewed by me
Ultrasound: Report Reviewed by me
Labs: Labs Reviewed by me
--- NOTE | 2024-09-25 12:27 | W.PN.NEPH.PH ---
Today's Communication / Plan
-
see plan
Assessment/Plan
-
IMP:
Nausea/Vomiting/Diarrhea
INfluenza A
BELLO versus CKD 2 baseline cr 1.2-1.4
Sepsis
Acute Hypoxic Respiratory Insufficiency
Community Acquired Pneumonia
Non-ischemic Troponin Elevation
HFrEF-EF 30-35%; Moderate concentric LVH
Anemia
hyponatremia
Transaminitis
Recent hospitalization for renal Failure, resistant hyperkalemia at [facility]-was on HD briefly
Meth abuse
Polysubstance Abuse
DM
HLD
Plan:
A/w GI symp, noted Flu and also with resp failure with PNA
BELLO-no clear etiology, cr down to baseline
UA with micro hematuria and U PCR of 6.9gm/gm of cr
send serologies and paraprotein w/u
highly suspect has underlying diabetic nephropathy
unfortunately can not be on ARB(life threatening hyperkalemia), SGLT2I(type 1 DM), Kerendia is also limited with h/o high K
over all he is at high risk of decline of renal function in the future
non acute renal US and follow bladder scan 20cc
BNP is high but stable resp status, echo noted
monitor daily wts, ok to resume lasix at d/c
Bp labile, cont coreg
follow labs
adjust meds changing GFR
d/w pt and primary
need nephro f/u depends on his insurance has coverage
d/w pt in detail
-
-
Date of Service: September 25, 2024
CC / HPI / ROS
-
Chief Complaint:
BELLO with CKD
History of Present Illness:
cr down to 1.4, k normal
non oliguric
BP stable
no fever
Review of Systems:
feels well, no cp or sob
no edema
Labs
-
Labs:
WBC 7.3 10^3/uL (4.8-10.8) 09/25/24 07:43
RBC 3.20 10^6/uL (4.70-6.10) L 09/25/24 07:43
Hgb 9.3 g/dL (13.0-18.0) L 09/25/24 07:43
Hct 28.4 % (39.0-52.0) L 09/25/24 07:43
Plt Count 224 10^3/uL (130-400) 09/25/24 07:43
Sodium 138 mmol/L (135-145) 09/25/24 07:43
Potassium 4.0 mmol/L (3.5-5.1) 09/25/24 07:43
Chloride 101 mmol/L (98-107) 09/25/24 07:43
Carbon Dioxide 27 mmol/L (22-30) 09/25/24 07:43
BUN 28 mg/dl (9-20) H 09/25/24 07:43
Creatinine 1.4 mg/dL (0.7-1.3) H 09/25/24 07:43
eGFR > 60.00 09/25/24 07:43
Glucose 182 mg/dl (70-99) H 09/25/24 07:43
Calcium 8.5 mg/dl (8.4-10.2) 09/25/24 07:43
Anr-E-Jhahqinoklx Pept > 47688 pg/ml 09/22/24 11:49
Albumin 3.2 g/dl (3.5-5.0) L 09/25/24 07:43
Physical Exam
-
Vital Signs:
Vital Signs
Temp Pulse Resp BP Pulse Ox
98.0 F 93 16 109/74 97
09/25/24 11:24 09/25/24 11:24 09/25/24 11:24 09/25/24 11:24 09/25/24 11:24
Cardiovascular:: Regular rate and rhythm
Respiratory:: Bilateral: CTA
Lung Excursion:: Normal
Abdomen:: Nontender and Soft
Extremity Edema:: None: Bilateral:
Baldwin Catheter: No
[2024-09-25 14:02] LABS: Glucose - Point of Care 128 mg/dl (70-99)
[2024-09-25 15:46] VITALS: BP 109/68
[2024-09-25] MEDS: ZITHROMAX 500 MG PO (16:04)
[2024-09-25] MEDS: FLUSH (NSS) IV ×2 (16:05)
[2024-09-25] MEDS: STERILE WATER FOR INJECTION 10 ML IV (16:05)
[2024-09-25] MEDS: ROCEPHIN 1000 MG IV (16:05)
[2024-09-25 16:52] LABS: Glucose - Point of Care 151 mg/dl (70-99)
[2024-09-25] MEDS: NOVOLOG FLEXPEN-LOW RESISTANCE 1 UNITS SC (17:21)
[2024-09-25] MEDS: TAMIFLU 75 MG PO (20:12)
[2024-09-25] MEDS: COREG 12.5 MG PO (20:12)
[2024-09-25] MEDS: TYLENOL 650 MG PO (20:13)
[2024-09-25] MEDS: HEPARIN SC (20:15)
[2024-09-25 21:26] LABS: Glucose - Point of Care 189 mg/dl (70-99)
[2024-09-25] MEDS: NOVOLOG MIX 70/30 FLEXPEN 7 UNITS SC (23:24)
[2024-09-25 23:43] VITALS: BP 95/59
[2024-09-26 03:21] VITALS: BP 129/77
[2024-09-26 06:00] VITALS: BMI 22.8
[2024-09-26 06:51] LABS: Hematocrit 27.8 % (39.0-52.0); Hemoglobin 8.9 g/dL (13.0-18.0); Mean Corpuscular Hgb 29.1 pg (27.0-31.0); Mean Corpuscular Volume 90.8 fL (80.0-94.0); Mean Platelet Volume 12.6 fL (7.4-10.4); Platelet Count 229 10^3/uL (130-400); Red Blood Cell Count 3.06 10^6/uL (4.70-6.10); Red Cell Dist. Width 13.6 % (11.5-14.5)
[2024-09-26 07:15] VITALS: BP 157/98
[2024-09-26 07:15] LABS: ALT (SGPT) 169 U/L (0-50); AST (SGOT) 42 U/L (17-59); Albumin 2.9 g/dl (3.5-5.0); Alkaline Phosphatase 120 U/L (38-126); Blood Urea Nitrogen 30 mg/dl (9-20); Calcium 7.9 mg/dl (8.4-10.2); Carbon Dioxide 28 mmol/L (22-30); Chloride 97 mmol/L (98-107); Estimated Creatinine Clearance 67 ml/min; Glucose 212 mg/dl (70-99); Potassium 3.8 mmol/L (3.5-5.1); Sodium 134 mmol/L (135-145); Total Bilirubin 0.4 mg/dl (0.2-1.3); Total Protein 5.8 g/dl (6.3-8.2); eGFR 58.15
[2024-09-26 08:18] LABS: Glucose - Point of Care 211 mg/dl (70-99)
[2024-09-26] MEDS: MUCINEX 600 MG PO (08:19)
[2024-09-26] MEDS: COREG 12.5 MG PO (08:19)
[2024-09-26] MEDS: NOVOLOG FLEXPEN-LOW RESISTANCE 2 UNITS SC ×2 (08:19→12:06)
[2024-09-26] MEDS: TAMIFLU 75 MG PO (08:19)
[2024-09-26] MEDS: NOVOLOG MIX 70/30 FLEXPEN 14 UNITS SC (08:20)
[2024-09-26] MEDS: HEPARIN 5000 UNITS SC (08:20)
--- NOTE | 2024-09-26 11:02 | W.PN.HOSP.TC ---
Addendum entered and electronically signed by Iveth Cuevas MD 09/28/24 16:49:
# Respiratory failure ruled out. Pt has acute hypoxic respiratory insufficiency
Addendum entered and electronically signed by Iveth Cuevas MD 09/26/24 15:45:
total DC time 40 min
Original Note:
Today's Communication/Plan
-
see A/P
Assessment / Plan
Assessment / Plan
A/P:
# Nausea/Vomiting/Diarrhea, likely 2/2 Flu infection, symptoms resolved
diet advanced to LRD and pt tolerating well
# Sepsis POA 2/2 Flu and CAP
MRSA screen neg,
CXR: suggesting mild right infrahilar pneumonia. Stable.
Tamiflu x5 days total
Abx with ceftriaxone/azithromycin, DC on Cefdinir and azithromycin, Abx 5 days total
# Acute Hypoxic Respiratory Failure, resolved
2/2 community Acquired Pneumonia, Flu
weaned off O2
# Non-ischemic Troponin Elevation, most likely 2/2 to sepsis
chest pain likely pleuritic
ECHO with poor EF although no wall motion abnormality
F/u outpt with cardiology
# BELLO on CKD stage 3
suspect diabetic nephropathy
Appreciate renal input
Of note, pt was on HD prior to this admission
Outpt BMP in 1 week, result to PCP
# Asymptomatic bacteruria
# HFrEF
EF 30-35%; Moderate concentric LVH
hold home Lasix for now, consider restarting
Echo: EF 30-35%. Global hypokinesis. Normal diastolic function. Moderate mitral regurgitation.
# Anemia, acute blood loss vs dilutional
no obvious bleeding at this time
Hgb 8.9 today
# Mild hyponatremia
monitor
# Transaminitis, likely reactive 2/2 infection
LFT improving
Abd US unrevealing: Mild diffusely increased echogenicity throughout the liver suggesting mild diffuse liver disease.
Outpt LFT in 1 week, result to PCP
# Recent hospitalization for renal Failure at [facility]
# Meth abuse
# Polysubstance Abuse
educated on cessation
[facility] consulted
# IDDM
A1c 7%
cont Insulin 70/30
ISS low
# HLD
DVT PPx Hep subQ
FULL CODE
DW Renal
Anticipated Discharge: Today
Subjective/Interval History
-
Date of Service: September 26, 2024
Objective Data
-
Labs:
Laboratory Results
09/26/24
05:32
WBC 7.0
Hgb 8.9 L
Hct 27.8 L
Plt Count 229
Sodium 134 L
Potassium 3.8
Chloride 97 L
Carbon Dioxide 28
BUN 30 H
Creatinine 1.5 H
Glucose 212 H
Calcium 7.9 L
Total Bilirubin 0.4
AST 42
ALT 169 H
Alkaline Phosphatase 120
Vital Signs:
Vital Signs
Temp Pulse Resp BP Pulse Ox
36.9 C 83 16 157/98 94
09/26/24 07:15 09/26/24 07:15 09/26/24 07:15 09/26/24 08:19 09/26/24 07:15
I&O
09/25/24 09/26/24 09/27/24
06:59 06:59 06:59
Intake Total 970 / 970 1680 / 1680
Output Total 1425 / 1425 1050 / 1050
Balance -455 / -455 630 / 630
Review of Systems
-
All other systems: Reviewed and negative
Physical Exam
-
General: Well Developed, Well Nourished, No Apparent Distress, Comfortable and Conversant; Negative Respiratory Distress
HEENT: Normocephalic, Atraumatic, Nose Appears Normal and Ears Appear Normal; Negative Oxygen
Respiratory: Clear to Auscultation and Non Labored Respirations; Negative Accessory Resp Muscle Use
Cardiac: Regular Rhythm and S1/S2
GI: Soft, Nontender, Nondistended and Normal Bowel Sounds
Skin: Warm and Dry
Neuro: Awake, Alert, Oriented and AO x 3
Psych: Calm and Intact Judgement/Insight
Data Reviewed
-
Labs: Labs Reviewed by me
[2024-09-26 12:05] LABS: Glucose - Point of Care 223 mg/dl (70-99)
--- NOTE | 2024-09-26 12:12 | CM ---
Patient seen at bedside.
Discharge today to home.
Patient states spoke with Magda at [facility]
patient was provided with phone number for [facility] at [facility] [place] - [phone]
PLAN: Home, patient to follow up with outpatient resources
Dad to transport home
[2024-09-26] MEDS: APRESOLINE 10 MG IV (12:29)
[2024-09-26 12:44] VITALS: BP 149/90
--- NOTE | 2024-09-26 15:31 | W.DCSUMMARY ---
Discharge Summary
Discharge Data
Date of Admission: 09/22/24
Date of Discharge: 09/26/24
-
Pending Results: No
Hospital Course
Principal Diagnosis:
Nausea/Vomiting/Diarrhea, likely due to acute flu infection, GI symptoms resolved
Sepsis due to acute flu infection and community-acquired pneumonia
Acute Hypoxic Respiratory Failure, resolved
Non-ischemic Troponin Elevation, likely due to sepsis
Transaminitis likely reactive due to acute infection
Chronic Diagnoses:�
Chronic heart failure with reduced ejection fraction. EF 30-35 %
Recent hospitalization for renal failure at [facility]
Meth abuse/ Polysubstance Abuse
Insulin-dependent diabetes, hemoglobin A1c 7%. Continue insulin 70/30
Hyperlipidemia
Consultations:�
Nephrology
Procedures:�
None
Clinical course:�
This is a 43-year-old male, with past medical history as stated above, who presented with nausea, vomiting, and diarrhea.
Problem 1:
Nausea/Vomiting/Diarrhea, likely due to acute flu infection.
His GI symptoms resolved uneventfully.
His diet was advanced to LRD which he tolerated well.
Problem 2:
Sepsis due to acute flu infection and community-acquired pneumonia.
This was associated with acute Hypoxic Respiratory Failure, which resolved.
His CXR showed mild right infrahilar pneumonia.
His MRSA screen was negative.
He received Tamiflu x 5 days while in the hospital, and he was started with empiric antibiotic ceftriaxone/azithromycin (to continue with oral antibiotics cefdinir and azithromycin, x5 days total, following discharge).
Problem 3:
Transaminitis likely reactive due to acute infection.
His LFT level improved while in the hospital.
His Abd US was unrevealing: showed mild diffusely increased echogenicity throughout the liver suggesting mild diffuse liver disease.
He can check LFT outpatient in 1 week, result to his PCP.
Problem 4:
BELLO on CKD stage 3, suspect diabetic nephropathy.
His serum creatinine improved from 2.2 to 1.5 on the day of discharge.
He can check BMP outpatient in 1 week, result to his PCP.
As for the rest of his medical problems, they were stable during his hospital stay.
Discharge Plan
-
Patient Disposition: Home (Routine Discharge)
Discharge Diagnosis/Procedures: Nausea/Vomiting/Diarrhea likely due to Flu infection (completed Tamiflu);
Flu infection and community acquired pneumonia;
Acute Hypoxic Respiratory Failure (resolved);
elevated LFT likely reactive due to infection
Condition: Fair
Diet: As tolerated
Activity: As tolerated
Driving Restrictions: As prior to admission
Blood Work: CMP in 1 week, result to PCP
Others Tests: CXR in 4-6 weeks with PCP
Referrals:
UNKNOWN - PT DOES,NOT KNOW [Family Provider] - in less than 1 week
Additional Discharge Medication Instructions: Continue Cefdinir and azithromycin for 3 more days
Coreg dose increased from 6.25 mg twice daily to 12.5 mg twice daily (for better blood pressure control)
Prescriptions:
New
carvedilol 12.5 mg Tablet
12.5 mg PO BID Qty: 60 0RF
cefdinir 300 mg capsule
300 mg PO BID 3 Days Qty: 6 0RF
azithromycin [Zithromax] 500 mg tablet
500 mg PO DAILY 3 Days Qty: 3 0RF
Continued
furosemide [Lasix] 40 mg Tablet
40 mg PO DAILY
insulin asp prt-insulin aspart [Novolog Mix 70-30 U-100 Insuln] 100 unit/mL (70-30) Solution
7 unit SC HS
insulin asp prt-insulin aspart [Novolog Mix 70-30 U-100 Insuln] 100 unit/mL (70-30) Solution
14 unit SC DAILY
Discontinued
carvedilol [Coreg] 6.25 mg Tablet
6.25 mg PO BID
Discharge Orders:
Discharge Patient (As Directed); Ordered 09/26/24
Ordered By: Iveth Cuevas
Discharge Date and Time
Discharge Date/Time: 09/26/24 13:41
Print Language: ESTONIAN
[2024-09-26 18:44] LABS: Complement C3 126 mg/dl (88-165)
[2024-09-26 19:38] LABS: Hepatitis C Antibody Negative (Negative)
--- NOTE | 2024-09-27 12:52 | PN.CDI ---
CDI
- -
CDI:
Physician Documentation Request
Admit Date: 09/22/24 14:31
Dear Doctor Mason,
Patient admitted with sepsis 2/2 Flu and CAP.
H&P and hospitalist progress notes 09/23-09/24 state 'Hypoxic Respiratory Insufficiency '
On 09/25-09/26 hospitalist progress note states 'Acute Hypoxic Respiratory Failure'
Per documented vital signs, patient was on 2 liters until transitioning to room air
Recognized standard criteria for respiratory failure includes:
(Source: [employer] [facility] Jun 2013)
ABGs (1 or more)
�PO2 <60 or RA SpO2 <91%
�PcO2 >50 and pH <7.35
�pO2 decrease or pcO2 increase by 10 mmHg from baseline if known Symptoms:
�Tachypnea, SOB, dyspnea
�Pallor or cyanosis
�Anxiety or restlessness
�Use of accessory muscles
�Retractions (grunting in newborns)
�Unable to speak in complete sentences
Supplemental O2 requirement of 40% (5LPM) or more Intubation is not required
Based on the above information and the recognized standard for respiratory failure could you please verify this diagnoses is still accurate and reflective of the patient�s condition to ensure quality of the medical record.
Please clarify in the Progress Notes:
�Respiratory failure is/was present and is a clinical diagnosis based on (please include this additional support in the medical record)
�After study respiratory failure has been ruled out
�Other
Use of terms such as suspected, likely, concern for, or probable (associated with a specific diagnosis that is being evaluated, monitored, or treated as if it exists) are acceptable and can be coded in the inpatient setting, when documented at the
time of discharge.
Thank you,
Imani Franks RN, BSN
CDI Specialist
tiger text
Please use your independent medical judgment in providing your response.
[2024-09-27 15:35] LABS: Myeloperoxidase Antibody 1 AU/mL (0-19); Serine Protease-3, IgG 1 AU/mL (0-19)
[2024-09-28 01:27] LABS: ANA, IgG Reflex to HEp-2 None Detected (None Detected)
[2024-09-29 00:31] LABS: Albumin 2.99 g/dL (3.75-5.01); Alpha 1 Globulin 0.37 g/dL (0.19-0.46); Alpha 2 Globulin 0.71 g/dL (0.48-1.05); SPEP IFE Reflex Not Done; Total Protein-Electrophoresis 5.8 g/dL (6.3-8.2)
== END 2024-09-26 13:41 | disposition home or self-care (01) | DRG 871 ==
LOC: 2 NORTH 14:31
PROVIDERS: Emergency Medicine; Internal Medicine; Physician Assistant; ADMITTING PHYSICIAN Student in an Organized Health Care Education/Training Program; ATTENDING PHYSICIAN Internal Medicine; CONSULT PHYSICIAN Internal Medicine; EMERGENCY PHYSICIAN Emergency Medicine
DX: A41.89 Other specified sepsis (principal); J10.00 Influenza due to other identified influenza virus with unspecified type of pneumonia; I13.0 Hypertensive heart and chronic kidney disease with heart failure and stage 1 through stage 4 chronic kidney disease, or unspecified chronic kidney disease; I50.22 Chronic systolic (congestive) heart failure; E87.1 Hypo-osmolality and hyponatremia; N17.9 Acute kidney failure, unspecified; I5A Non-ischemic myocardial injury (non-traumatic); N18.30 Chronic kidney disease, stage 3 unspecified; E11.22 Type 2 diabetes mellitus with diabetic chronic kidney disease; I34.0 Nonrheumatic mitral (valve) insufficiency; F15.10 Other stimulant abuse, uncomplicated; E78.5 Hyperlipidemia, unspecified; Z83.3 Family history of diabetes mellitus; Z79.899 Other long term (current) drug therapy; Z79.4 Long term (current) use of insulin; D64.9 Anemia, unspecified; Z87.891 Personal history of nicotine dependence; Z11.52 Encounter for screening for COVID-19; R09.02 Hypoxemia
CPT/HCPCS: 71045; 76700; 76775; 80053; 81003; 81015; 82570; 82962; 83036; 83516; 83605; 83690; 83735; 83880; 84145; 84155; 84156; 84165; 84300; 84484; 85025; 85027; 86038; 86160; 86803; 87502; 87811; 93005; 93306; 96361; 96374; 96375; 99285

== ENCOUNTER 2024-10-12 00:25 | Inpatient (IN) | payer MEDICARE, SELFPAY ==
[2024-10-11 17:17] VITALS: BMI 26.1
[2024-10-11 17:25] VITALS: BP 159/100
--- NOTE | 2024-10-11 17:26 | ED.GENMED ---
ED Provider Triage
<Rupert Acosta Jr., PA-C - Last Filed: 10/11/24 17:27>
-
Patient seen by provider in Triage?: Seen in Triage
Attestation: A medical screening examination has been initiated by a qualified medical provider. Based on the assessment performed at this time, it has been determined that an emergent medical condition may exist and the patient has been informed
that further medical evaluation and possible additional diagnostic testing may be needed.
HPI: 43-year-old male presenting to the emergency department today after syncopal episode. This was preceded by feeling generalized weakness and fatigue. Some ongoing fatigue as well. Was recently here after having the flu and additional heart
failure symptoms. Plan for initial labs EKG. On my assessment here patient in no obvious distress.
GENERAL: Alert , in no apparent distress
EYE: No visual abnormalities.
NECK: Trachea midline
ENT: No visible abnormalities.
LUNGS: No acute respiratory distress
NEUROLOGICAL: Alert and oriented
SKIN: Skin intact. No visible changes.
MUSCULOSKELETAL: Moving extremities normally
PSYCH: Normal and appropriate interaction.
This is a medical evaluation conducted in person to initiate diagnostic evaluation and provide initial therapeutics. Please see further documentation by the treating clinician.
History of Present Illness
<Rupert Acosta Jr., PA-C - Last Filed: 10/11/24 17:27>
General
Chief Complaint: Breathing Problem
Time Seen by Provider: 10/11/24 20:56
<Yael Fraga MD - Last Filed: 10/11/24 23:55>
History of Present Illness
History of Present Illness:
Patient is a 43-year-old male with history of CHF, hypertension, diabetes recent admission for pneumonia presenting to the emergency department after syncopal event. Per chart review patient was discharged 2 weeks ago after he was admitted for flu
and the pneumonia. He was discharged on antibiotics that he finished. Today he went to go help his dad in the yard. When he came outside he was lightheaded dizzy and then developed right vision. His father had him sit in the chair when he lost
consciousness. Per the family who witnessed that he lost consciousness for 5 to 7 minutes. His lips did turn blue and chest compressions were started by his brother. He did not fall from the chair. His lips coloration came back when he started
gasping for air. He does state from a fluid standpoint he does feel much better. He does have some ongoing congestion but no shortness of breath fevers chills.
Past History
<Rupert Acosta Jr., PA-C - Last Filed: 10/11/24 17:27>
Past History
ED Past Medical History: HTN and NIDDM
Social History
Tobacco: Smoker
Phy Exam
<Yael Fraga MD - Last Filed: 10/11/24 23:55>
Physical Exam
Physical Exam:
GENERAL: Pale appearing
HEENT: normocephalic, extraocular movements intact, moist oral mucosa
NECK: normal inspection
RESPIRATORY: no respiratory distress, crackles at the right
CARDIOVASCULAR: regular rate and rhythm
ABDOMEN/: soft, non-distended, non-tender to palpation, no rebound or guarding
EXTREMITIES: non-tender, no edema/swelling
NEUROLOGIC: awake and alert, moves all extremities
SKIN: warm
Scores
<Yael Fraga MD - Last Filed: 10/11/24 23:55>
Heart Failure Risk
Heart Failure Risk Score: Not Applicable
Course
<Rupert Acosta Jr., PA-C - Last Filed: 10/11/24 17:27>
Orders/Labs/Results
Orders:
Orders
10/11/24 17:20
ECG [Electrocardiogram (*1)] Urgent
Reason for Study: Syncope
EKG- Treatment ONCE
10/11/24 17:27
CR Chest - 2 Views Urgent
Comment:
Reason For Exam: syncope
10/11/24 21:43
CT Chest PE Study Urgent
Comment:
Reason For Exam: hypoxia, syncope
10/11/24 21:44
Complete Blood Count/With Diff Urgent
Comprehensive Metabolic Panel Urgent
Magnesium Urgent
NT-proBNP Urgent
TSH Urgent
10/11/24 22:18
Dextrose 50%-Water [Dextrose 50% Syringe] 12.5 grams IV [id number] PRN
Dextrose 50%-Water [Dextrose 50% Syringe] 25 grams IV NOW STA
Furosemide [Lasix] 40 mg IV NOW STA
Insulin Human Regular [Novolin R] 5 units IV NOW STA
Bedside Glucose PRE IV Insulin- HyperK+ NOW
10/11/24 23:48
Bedside Glucose POST IV Insulin- HyperK+ Q1HX2,Q2HX2
10/12/24 02:48
Potassium Urgent
Comment: draw 4 hours after furosemide administered
Abnormal Lab Results
10/11/24 10/11/24
21:44 23:04
WBC 11.3 H 10^3/uL
(4.8-10.8)
RBC 3.56 L 10^6/uL
(4.70-6.10)
Hgb 10.3 L g/dL
(13.0-18.0)
Hct 32.8 L %
(39.0-52.0)
MCHC 31.4 L g/dL
(33.0-37.0)
MPV 11.5 H fL
(7.4-10.4)
Abs Immat Gran (auto) 0.1 H 10^3/uL
(0-0.05)
Absolute Neuts (auto) 9.5 H 10^3/uL
(1.4-6.5)
Neutrophils % 83.8 H %
(42.2-75.2)
Lymphocytes % 10.7 L %
(20.5-51.1)
Potassium 6.3 H* mmol/L
(3.5-5.1)
Chloride 108 H mmol/L
(98-107)
BUN 29 H mg/dl
(9-20)
Glucose 162 H mg/dl
(70-99)
Alkaline Phosphatase 148 H U/L
(38-126)
POC Glucose 146 H mg/dl
(70-99)
10/11/24 21:44
10/11/24 21:44
Vital Signs
Initial and Last Documented VS:
Initial Vital Signs
Temp Pulse Resp BP Pulse Ox
97.4 F 82 18 159/100 94
10/11/24 17:25 10/11/24 17:25 10/11/24 17:25 10/11/24 17:25 10/11/24 17:25
Last Documented Vital Signs
Temp Pulse Resp BP Pulse Ox
97.8 F 85 21 174/107 97
10/11/24 20:10 10/11/24 23:22 10/11/24 22:45 10/11/24 23:22 10/11/24 22:45
<Yael Fraga MD - Last Filed: 10/11/24 23:55>
Orders/Labs/Results
Orders:
Orders
10/11/24 17:20
ECG [Electrocardiogram (*1)] Urgent
Reason for Study: Syncope
EKG- Treatment ONCE
10/11/24 17:27
CR Chest - 2 Views Urgent
Comment:
Reason For Exam: syncope
10/11/24 21:43
CT Chest PE Study Urgent
Comment:
Reason For Exam: hypoxia, syncope
10/11/24 21:44
Complete Blood Count/With Diff Urgent
Comprehensive Metabolic Panel Urgent
Magnesium Urgent
NT-proBNP Urgent
TSH Urgent
10/11/24 22:18
Dextrose 50%-Water [Dextrose 50% Syringe] 12.5 grams IV [id number] PRN
Dextrose 50%-Water [Dextrose 50% Syringe] 25 grams IV NOW STA
Furosemide [Lasix] 40 mg IV NOW STA
Insulin Human Regular [Novolin R] 5 units IV NOW STA
Bedside Glucose PRE IV Insulin- HyperK+ NOW
10/11/24 23:48
Bedside Glucose POST IV Insulin- HyperK+ Q1HX2,Q2HX2
10/12/24 02:48
Potassium Urgent
Comment: draw 4 hours after furosemide administered
Abnormal Lab Results
10/11/24 10/11/24
21:44 23:04
WBC 11.3 H 10^3/uL
(4.8-10.8)
RBC 3.56 L 10^6/uL
(4.70-6.10)
Hgb 10.3 L g/dL
(13.0-18.0)
Hct 32.8 L %
(39.0-52.0)
MCHC 31.4 L g/dL
(33.0-37.0)
MPV 11.5 H fL
(7.4-10.4)
Abs Immat Gran (auto) 0.1 H 10^3/uL
(0-0.05)
Absolute Neuts (auto) 9.5 H 10^3/uL
(1.4-6.5)
Neutrophils % 83.8 H %
(42.2-75.2)
Lymphocytes % 10.7 L %
(20.5-51.1)
Potassium 6.3 H* mmol/L
(3.5-5.1)
Chloride 108 H mmol/L
(98-107)
BUN 29 H mg/dl
(9-20)
Glucose 162 H mg/dl
(70-99)
Alkaline Phosphatase 148 H U/L
(38-126)
POC Glucose 146 H mg/dl
(70-99)
10/11/24 21:44
10/11/24 21:44
Vital Signs
Initial and Last Documented VS:
Initial Vital Signs
Temp Pulse Resp BP Pulse Ox
97.4 F 82 18 159/100 94
10/11/24 17:25 10/11/24 17:25 10/11/24 17:25 10/11/24 17:25 10/11/24 17:25
Last Documented Vital Signs
Temp Pulse Resp BP Pulse Ox
97.8 F 85 21 174/107 97
10/11/24 20:10 10/11/24 23:22 10/11/24 22:45 10/11/24 23:22 10/11/24 22:45
<Yael Fraga MD - Last Filed: 10/11/24 23:55>
MDM/Problems Addressed
Differential Diagnosis Includes:
Patient is a 43-year-old man presenting to the emergency room after syncopal event. Vitals are notable for ectopy and hypoxic to the low 80s and exam does show crackles at the base to the right. Initially given patient's prodrome prior to the
syncope considered vasovagal or orthostatic. Less likely to be arrhythmia. However given hypoxia and syncope concern for pulmonary embolism. Will check CT PE study. Will check blood work. EKG per my interpretation normal sinus rhythm with no
delta or epsilon waves and normal intervals. Patient will need admission.
<Yael Fraga MD - Last Filed: 10/11/24 23:55>
*Critical Care Note
Total Time (30-74mins, 75-104mins- exclusive of procedures): Not Applicable
<Yael Fraga MD - Last Filed: 10/11/24 23:55>
Update Note
Update Note:
Received a critical call regarding patient's potassium. Is elevated at 6.3. EKG without any peaked T waves. Will give hyperkalemia protocol. Of note patient does state that he required temporary dialysis for hyperkalemia in the past. CT PE
study per my interpretation negative for PE. However it is consistent with CHF exacerbation as well as bilateral pleural effusions. Lasix was given as part of the hyperkalemia protocol. Discussed with hospitalist who accepted patient for
admission for the CHF exacerbation as well as hyperkalemia.
ED Attending Note
<Rupert Acosta Jr., PA-C - Last Filed: 10/11/24 17:27>
-
Portions of this chart may have been created with voice recognition software.� Occasional wrong word or��sound alike� substitutions may have occurred due to the inherent limitations of voice recognition software.
Discharge Plan
Departure
Patient Disposition: Admit
Date of Disposition: 10/11/24
Time of Disposition: 23:53
Presentation/result/management discussed w/ accepting MD/DO: Hospitalist
Discharge Problem:
Hyperkalemia, CHF exacerbation, Syncope
Prescriptions:
No Action
furosemide [Lasix] 40 mg Tablet
40 mg PO DAILY
insulin asp prt-insulin aspart [Novolog Mix 70-30 U-100 Insuln] 100 unit/mL (70-30) Solution
7 unit SC HS
insulin asp prt-insulin aspart [Novolog Mix 70-30 U-100 Insuln] 100 unit/mL (70-30) Solution
14 unit SC DAILY
carvedilol 12.5 mg Tablet
12.5 mg PO BID Qty: 60 0RF
cefdinir 300 mg capsule
300 mg PO BID 3 Days Qty: 6 0RF
azithromycin [Zithromax] 500 mg tablet
500 mg PO DAILY 3 Days Qty: 3 0RF
Referrals:
Dorota Llamas MD [Primary Care Provider] -
UNKNOWN - PT DOES,NOT KNOW [Family Provider] -
Interventions
Interventions:
*Risk Screen - Suicide Last Done: 10/11/24 17:25
*General Assessment Last Done: 10/11/24 21:27
*ED COVID-19 Vaccine History Last Done: 10/11/24 17:25
ED- Cardiac Assessment Last Done: 10/11/24 21:28
ED- Neurological Assessment Last Done: 10/11/24 21:28
ED- Pulmonary Assessment Last Done: 10/11/24 21:28
Discharge Date and Time
Print Language: WELSH
[2024-10-11 20:10] VITALS: BP 171/100
[2024-10-11 21:25] VITALS: BP 170/104
[2024-10-11 21:56] LABS: % Basophils 0.2 % (0-2); % Eosinophils 0.8 % (0-6); % Immature Granulocytes 0.4 % (0-0.5); % Lymphocytes 10.7 % (20.5-51.1); % Monocytes 4.1 % (1.7-9.3); % Neutrophils 83.8 % (42.2-75.2); Absolute Eosinophils 0.1 10^3/uL (0-0.7); Absolute Immature Granulocytes 0.1 10^3/uL (0-0.05); Absolute Lymphocytes 1.2 10^3/uL (1.2-3.4); Absolute Monocytes 0.5 10^3/uL (0.1-0.6); Absolute Neutrophils 9.5 10^3/uL (1.4-6.5); Hematocrit 32.8 % (39.0-52.0); Hemoglobin 10.3 g/dL (13.0-18.0); Mean Corp Hgb Conc. 31.4 g/dL (33.0-37.0); Mean Corpuscular Hgb 28.9 pg (27.0-31.0); Mean Corpuscular Volume 92.1 fL (80.0-94.0); Mean Platelet Volume 11.5 fL (7.4-10.4); Nucleated Red Blood Cells % 0 % (-); Platelet Count 241 10^3/uL (130-400); Red Blood Cell Count 3.56 10^6/uL (4.70-6.10); Red Cell Dist. Width 13.9 % (11.5-14.5); White Blood Cell Count 11.3 10^3/uL (4.8-10.8)
[2024-10-11 22:00] VITALS: BP 169/101
[2024-10-11 22:16] LABS: ALT (SGPT) 35 U/L (0-50); AST (SGOT) 24 U/L (17-59); Albumin 3.6 g/dl (3.5-5.0); Alkaline Phosphatase 148 U/L (38-126); Blood Urea Nitrogen 29 mg/dl (9-20); Calcium 9.1 mg/dl (8.4-10.2); Carbon Dioxide 25 mmol/L (22-30); Chloride 108 mmol/L (98-107); Estimated Creatinine Clearance 85 ml/min; Glucose 162 mg/dl (70-99); Magnesium 1.9 mg/dl (1.6-2.3); Potassium 6.3 mmol/L (3.5-5.1); Sodium 137 mmol/L (135-145); Total Bilirubin 0.4 mg/dl (0.2-1.3); Total Protein 6.4 g/dl (6.3-8.2); eGFR > 60.00
[2024-10-11 22:17] LABS: NT-proBNP 18900 pg/ml
[2024-10-11 22:44] LABS: TSH 2.75 uIU/ml (0.47-4.68)
[2024-10-11 23:00] VITALS: BP 174/107
[2024-10-11 23:05] LABS: Glucose - Point of Care 146 mg/dl (70-99)
[2024-10-11] MEDS: LASIX 40 MG IV (23:22)
[2024-10-11] MEDS: DEXTROSE 50% SYRINGE 25 GRAMS IV (23:24)
[2024-10-11] MEDS: NOVOLIN R 5 UNITS IV (23:31)
[2024-10-12] VITALS (10 sets, daily range): BP systolic 76–159; BP diastolic 78–103; BMI 24.1
[2024-10-12 00:37] LABS: Glucose - Point of Care 131 mg/dl (70-99)
--- NOTE | 2024-10-12 00:54 | HPS.HSE ---
Family Physician
-
Family Physician: NOT KNOW UNKNOWN - PT DOES
Chief Complaint
-
Syncope
History of Present Illness
This is a 43-year-old with past medical history significant for nonischemic cardiomyopathy, EF 30 to 35%, history of polysubstance abuse, insulin-dependent diabetes, recent admission for influenza with superimposed pneumonia and sepsis presenting to
the emergency department following collapsed and attempted CPR at home.
Patient reported that he was walking in that he had when all of a sudden he felt lightheaded and dizzy and then collapsed to the floor. Is was not really sure how long he was unconscious for. Family apparently did CPR. He had a pulse on EMS
arrival. He was awake alert and oriented in the emergency department. There was no postictal. There was no seizure-like episode. Patient himself denies feeling any palpitations. He denied having any chest pain. He felt some chest soreness due
to chest compressions. He denies any recent changes in medications. He states that since August he has been on Lasix and his compliance has been normal with no acute weight gain. He reports that his lower extremity edema is improved compared to
previous. He denies having any nausea or vomiting. Denies any headache.
In the emergency department he was afebrile, blood pressure was 156/90 with a pulse of 91 he is satting 98% on 3 L. ECG showed normal sinus rhythm and no acute ST or T wave changes. Chest x-ray shows interstitial infiltrates with bilateral pleural
effusions, CT angio was negative for PE and consistent with congestive heart failure. [place] [address] similar to prior.
Medical History
Past Medical History
Past Medical History: Reports Other (essential HTN, HLD, DM, HF)
Past Surgical History: Reports None
Social History
Tobacco: Former Smoker
Alcohol: Former
Personal: Single
Living: With Family
Family History
Family History: Not pertinent
Allergies / Home Medications
Allergies reflects when Allergies were last updated in [facility].
Home Medications with original date entered in [facility]
Allergy/Medication List:
Allergies
Allergy/AdvReac Type Severity Reaction Status Date / Time
venom-honey bee Allergy Hives Verified 10/11/24 17:30
[bee venom (honey bee)]
Home Medications
furosemide 40 mg tablet (Lasix) 40 mg PO DAILY 09/22/24
insulin aspar prt-insulin aspart 100 unit/mL (70-30) subcutaneous soln (Novolog Mix 70-30 U-100 Insuln) 7 unit SC HS 09/22/24
insulin aspar prt-insulin aspart 100 unit/mL (70-30) subcutaneous soln (Novolog Mix 70-30 U-100 Insuln) 14 unit SC DAILY 09/22/24
azithromycin 500 mg tablet (Zithromax) 500 mg PO DAILY 3 days #3 tabs 09/26/24
carvedilol 12.5 mg tablet 12.5 mg PO BID #60 tabs 09/26/24
cefdinir 300 mg capsule 300 mg PO BID 3 days #6 caps 09/26/24
Review of Systems
-
History Source: Patient
Constitutional: Reports No Symptoms
EENT: Reports No Symptoms
Respiratory: Reports No Symptoms
Cardiac: Reports No Symptoms
Abdomen/GI: Reports No Symptoms
: Reports No Symptoms
Musculoskeletal: Reports No Symptoms
Skin: Reports No Symptoms
Neurological: Reports Dizzy
Endocrine: Reports No Symptoms
Hematologic/Lymphatic: Reports No Symptoms
Psych: Reports No Symptoms
Physical Exam
Vital Signs
Vital Signs
Temp Pulse Resp BP Pulse Ox
97.8 F 91 25 156/99 94
10/11/24 20:10 10/12/24 00:45 10/12/24 00:45 10/12/24 00:00 10/12/24 00:45
Physical Exam
General: Well Developed, Well Nourished and No Apparent Distress
HEENT: NormoCephalic, Anicteric and Moist mucous membranes
Respiratory: Crackles
Cardiac: S1/S2 and Regular Rhythm
GI: Soft, Non Tender, Non Distended and Normal Bowel Sounds
Rectal: Deferred by Provider
Genito-urinary: Deferred by me
Musculoskeletal: Edema, Left Lower Extremity (1+) and Edema, Right Lower Extremity (1+)
Skin: Warm
Neuro: AO x 3 and Nonfocal/grossly intact
Hematologic/Lymphatic: No Lymphadenopathy
Psych: Calm
Laboratory Results
-
10/11/24 21:44
Laboratory Results
Total Bilirubin 0.4 mg/dl (0.2-1.3) 10/11/24 21:44
AST 24 U/L (17-59) 10/11/24 21:44
ALT 35 U/L (0-50) 10/11/24 21:44
Alkaline Phosphatase 148 U/L (38-126) H 10/11/24 21:44
Data Reviewed
-
Diagnostic Radiology: Image Personally Visualized and interpreted
CT Scan: Report Reviewed by me
Medical Tests (Nuc Med, Echo, EKG etc): Image Personally Visualized and interpreted
Lab Data: Labs Reviewed by me
Old Records: Reviewed
Impression/Plan
-
IMPRESSION:
PLAN:
--- NOTE | 2024-10-12 01:00 | PTCARENOTE ---
Pt arrived at 4[facility] right at the start of [facility] downtime.
--- NOTE | 2024-10-12 02:45 | DOWNTIME ---
There was a [employer] Downtime on 10/12/2024 from 0100 to 10/12/2023 at 0235 . Downtime documentation of patient's care, including medication administrations, has been reconciled in the electronic record per guidelines. Refer to the
patient's paper chart under the miscellaneous tab to see printed paper medication records and downtime forms.
[2024-10-12 03:21] LABS: Potassium 5.5 mmol/L (3.5-5.1)
[2024-10-12 03:53] LABS: Glucose - Point of Care 134 mg/dl (70-99)
--- NOTE | 2024-10-12 03:58 | PTCARENOTE ---
House Provider, Janet Guerra, notified that pt's potassium lvl is now 5.5. Also of note, pt never had troponins done. Per Janet, will see what K lvl is on AM labs. Day team to decide on troponins. No new orders at this time.
[2024-10-12 05:31] LABS: Glucose - Point of Care 140 mg/dl (70-99)
[2024-10-12 07:50] LABS: Glucose - Point of Care 108 mg/dl (70-99)
[2024-10-12] MEDS: COREG 12.5 MG PO ×2 (08:31→19:44)
[2024-10-12] MEDS: LASIX 40 MG IV ×2 (08:32→16:17)
[2024-10-12 08:36] LABS: Glucose - Point of Care 129 mg/dl (70-99)
[2024-10-12 08:41] LABS: Blood Urea Nitrogen 25 mg/dl (9-20); Calcium 8.9 mg/dl (8.4-10.2); Carbon Dioxide 22 mmol/L (22-30); Chloride 107 mmol/L (98-107); Estimated Creatinine Clearance 93 ml/min; Glucose 129 mg/dl (70-99); HDL Cholesterol 68 mg/dl; LDL Cholesterol, Calculated 83 mg/dl; Magnesium 1.7 mg/dl (1.6-2.3); Phosphorus 4.8 mg/dl (2.5-4.5); Potassium 5.4 mmol/L (3.5-5.1); Sodium 135 mmol/L (135-145); Total Cholesterol 175 mg/dl (50-199); Triglyceride 120 mg/dl (10-149); Very Low Density Lipoprotein 24 mg/dl (0-30); eGFR > 60.00
[2024-10-12 09:01] LABS: TSH Reflex To Free T4 1.36 uIU/ml (0.47-4.68)
[2024-10-12 11:57] LABS: Glucose - Point of Care 193 mg/dl (70-99)
[2024-10-12] MEDS: NOVOLOG FLEXPEN-LOW RESISTANCE SC (11:58)
--- NOTE | 2024-10-12 12:48 | W.PN.UPDATE ---
Update Note
Progress Note Update
Non-billable note
TTE on 09/23
Normal left ventricular chamber size. Moderately reduced left ventricular
systolic function. Left ventricular ejection fraction is 30-35% by visual
assessment. Global hypokinesis. Moderate concentric left ventricular
hypertrophy. Normal diastolic function.
Indexed LA volume is moderately abnormal (42-48 mL/m2).
Possible functional bicuspid or tricuspid with fused raphe. There is adequate
leaflet excursion. Trace aortic regurgitation is seen.
Structurally normal tricuspid valve. Tricuspid valve opens normally. Mild
tricuspid regurgitation. Estimated pulmonary artery pressure of 35 mmHg.
Assuming a right atrial pressure of 8 mmHg.
1. Systolic HF exacerbation - xr showing pulm edema/pleural effusion. Probnp 18.9k. Compliant with home dose of lasix . Maintain on IV lasix 40mg/bid. F/u weight.cr
2. Bilateral pleural effusion - CT chest images reviewed . IR consulted for possible thora.
3. Acute hypoxic resp insufficiency - wean off o2 as possible, on 2L nc currently
4. IDDM - on Novolg 70/30 14 u in AM and 7 u pm . maintain on ISS
--- NOTE | 2024-10-12 13:14 | CON.CAR ---
Addendum entered and electronically signed by Benjamin Becerra MD 10/12/24 17:37:
I saw and examined the patient.
The Drum Loader And Unloader's note was reviewed and I agree with the note.
Comment: Briefly, 43-year-old man past medical history of heart failure with reduced ejection fraction (EF 35%), type 1 diabetes and polysubstance use who presents in acute decompensated heart failure.
Patient has had multiple admissions over the last several months to both [facility] as well as [place]. On prior admission he was noted to have cardiomyopathy with EF of 35%. He has had ongoing issues with hyperkalemia and required
urgent dialysis to treat this.
Appears mildly volume overloaded on exam today, +gallop, mild LE edema and is requiring 2 L of supplemental oxygen
Agree with IV Lasix twice daily
Follow creatinine and electrolytes closely
Continue Coreg
Unable to tolerate ESTHER/ARB/ARNI or MRA due to hyperkalemia
Add hydralazine/Imdur for afterload reduction
Tentative plan for left heart catheterization to evaluate for obstructive CAD
Discussed with patient and father at bedside as well as nursing
Original Note:
Consultation
Consultation Request
Date/Time Consultation Performed: 10/12/24
Requesting Provider: Dr. Lopez
Performing Provider: Belia Reardon PA-C for Dr. Becerra
Reason for Consultation: CHF
Medical History
-
Chief Complaint: syncope
History of Present Illness:
Patient is a 43 yo M with PMH of type 1 diabetes, former tobacco and meth abuse quit 7 months ago, and former alcohol abuse quit years ago who reports has had 3 recent admissions (2 in August 2024 to [facility] and most recently to 09/22-09/26/24)
for flu. He reports he received tamiflu multiple times. By review of records from [facility], he was initially admitted to [facility] with CP, flu, and found to be in CHF. Was started on Lasix, Coreg, valsartan. He then presented back to [facility] due
to hypokalemia on outpatient blood work, valsartan was stopped and he required temporary dialysis. He reports he had an echo during that admission which he states was 'normal', however then during admission to 09/22-09/26/24 had echo 09/23 with EF
30-35% and mod MR. He was scheduled to see cardiology as new patient 12/07/24. He presented back to yesterday as he was helping his brother and nephew with something. With standing and walking he felt lightheaded and sat down and states the next
thing he remembers is waking up. He states his family could not feel a pulse at one point and started brief CPR. Was noted to be hypoxic on arrival to ER into 80s and proBNP 12552. Cardiology consulted for evaluation of CHF.
PMH:
Admission to 09/22-09/26/24 for flu/PNA
Admission x2 to [facility] 08/2024 for CP, flu, CHF, hyperkalemia requiring transient HD
Diabetes, treated as type 1, diagnosed in mid 20s
Former tobacco use
Former ETOH abuse
Former meth abuse
Past Medical History
Past Medical History: Other (in HPI)
Social History
Tobacco: Former Smoker
Alcohol: Former
Drug: Former User
Employment: Employed
Family History
Family History: CAD, Diabetes and Hypertension
Allergies / Home Medications
Allergy/AdvReac Type Severity Reaction Status Date / Time
venom-honey bee Allergy Hives Verified 10/11/24 17:30
[bee venom (honey bee)]
�Medication �Instructions �Recorded �Confirmed �Type
furosemide 40 mg tablet (Lasix) 40 mg PO DAILY 09/22/24 09/22/24 History
insulin aspar prt-insulin aspart 7 unit SC HS 09/22/24 09/22/24 History
100 unit/mL (70-30) subcutaneous
soln (Novolog Mix 70-30 U-100
Insuln)
insulin aspar prt-insulin aspart 14 unit SC DAILY 09/22/24 09/22/24 History
100 unit/mL (70-30) subcutaneous
soln (Novolog Mix 70-30 U-100
Insuln)
azithromycin 500 mg tablet 500 mg PO DAILY 3 days #3 tabs 09/26/24 Rx
(Zithromax)
carvedilol 12.5 mg tablet 12.5 mg PO BID #60 tabs 09/26/24 Rx
cefdinir 300 mg capsule 300 mg PO BID 3 days #6 caps 09/26/24 Rx
Review of Systems
-
History Source: Patient
All other systems: Negative unless noted
Physical Exam
Vital Signs
Temp Pulse Resp BP Pulse Ox
98 F 82 20 150/94 99
10/12/24 11:00 10/12/24 11:00 10/12/24 11:00 10/12/24 11:00 10/12/24 11:00
Lab Results
10/11/24 21:44
10/12/24 07:25
Hci-X-Crmktdumfgs Pept 73555 pg/ml 10/11/24 21:44
Physical Exam
General: No Apparent Distress, Comfortable and Other (sitting in chair. on supp O2)
HEENT: Normocephalic, Anicteric and Moist Mucous Membranes
Respiratory: Crackles (on L, decreased BS on R)
Cardiac: S1/S2 and Regular Rhythm
GI: Soft, Non Tender, Non Distended and Normal Bowel Sounds
Musculoskeletal: No Clubbing, No Cyanosis and No Edema
Skin: Warm and Dry
Neuro: AO x 3
Impression / Plan
-
Primary Packing Attendant: scheduled to see Dr. Becerra to establish care 11/2024
Assessment:
Presentation with syncopal episode, possibly hypoxia driven
Acute hypoxic respiratory insufficiency
Acute HFrEF
B/L pleural effusion
Cardiomyopathy, EF 30-35%, unknown type
History of trop elevation during prior admission
Admission to 09/22-09/26/24 for flu/PNA/elevated troponin
Admission x2 to [facility] 08/2024 for flu, hyperkalemia requiring transient HD
Diabetes, treated as type 1, diagnosed in mid 20s
Former tobacco use
Former ETOH abuse
Former meth abuse
ECHO 09/23/24: EF 30 to 35%, global hypokinesis, moderate concentric LVH, moderate MR, possible aortic valve with functional bicuspid or tricuspid with fused raphe, trace AR, mild TR, PAP 35 mmHg
Echo 10/12/2024: EF 35%, global hypokinesis, mild concentric LVH, mild to moderate MR, possible bicuspid valve, aortic sclerosis, mild TR, PAP 41 mmHg, small pericardial effusion, pleural effusion present
Plan:
-Records reviewed from [facility] as well as most recent admission at [place] during which cardiology was not consulted. Patient with multiple recent admissions initially for chest pain, flu, CHF, then for hyperkalemia requiring transient HD, then
for pneumonia secondary to flu with elevated troponin, now back with syncopal episode and evidence of acute heart failure.
-Chest CT without PE or dissection, but did note bilateral pleural effusions and mild coronary artery calcifications
-Patient new to cardiology at [place]. He was scheduled for outpatient new visit 12/07/24
-proBNP 75383. continue IV Lasix. Creatinine stable at 1.1. Was on p.o. Lasix 40 mg daily as outpatient
-Wean supplemental oxygen
-CHF education
-Echocardiogram from 09/23 as well as 10/12/2024 reviewed with patient today
-Last admission troponins were elevated as high as 0.09. Patient denies chest pain. In the setting of diabetes, former substance abuse, will require cardiac catheterization this admission when improved from volume standpoint, possibly Thursday
-Guideline directed medical therapy limited due to hyperkalemia. Not candidate for esther/arb/arni/aldactone. not SGLT2 candidate due to type 1 diabetes. continue coreg. will add low dose hydralazine/nitrates.
-Will add aspirin
-LDL 83. Goal LDL less than 70 given diabetes. Will add statin
Data Reviewed
-
EKG: Tracing Personally Visualized and interpreted
CT Scan: Report Reviewed by me
Medical Tests (Nuc Med, Echo etc): Report Reviewed by me
Labs: Labs Reviewed by me
Old Records: Reviewed
[2024-10-12 13:40] LABS: Amphetamines Negative (Negative); Barbiturates Negative (Negative); Benzodiazepines Negative (Negative); Buprenorphine Negative (Negative); Cocaine Negative (Negative); Marijuana Negative (Negative); Methadone Negative (Negative); Methamphetamines Negative (Negative); Opiates Negative (Negative); Phencyclidine Negative (Negative); Tricyclic Antidepressants Negative (Negative)
--- NOTE | 2024-10-12 15:59 | CM ---
CM reviewed chart, patient seen bedside with father, initial assessment completed. Patient currently residing with his brother in a two story home, one step to enter. Patient is independent with ADLs/IADLs, denies use of DME, VN/SNF. Patient PCP
[facility], pharmacy [facility], confirms prescription coverage. Patient denies any needs at this time, will continue to follow for all discharge planning needs.
Plan; home with family, no needs.
[2024-10-12 16:10] LABS: Glucose - Point of Care 296 mg/dl (70-99)
[2024-10-12] MEDS: NOVOLOG FLEXPEN-LOW RESISTANCE 3 UNITS SC (16:15)
[2024-10-12] MEDS: NOVOLOG MIX 70/30 FLEXPEN 7 UNITS SC (16:16)
[2024-10-12] MEDS: LOW STRENGTH ASPIRIN 324 MG PO (16:18)
[2024-10-12] MEDS: IMDUR (EXTENDED RELEASE) 30 MG PO (16:18)
[2024-10-12 16:54] LABS: Body Fluid Glucose 196 mg/dl; Body Fluid LDH 95 U/L; Body Fluid Protein < 2.0 g/dl
[2024-10-12] MEDS: LOVENOX 40 MG SC (17:13)
[2024-10-12] MEDS: LIPITOR 40 MG PO (17:13)
[2024-10-12 17:29] LABS: Body Fluid Mononuclear 83 %; Body Fluid Polymorphonuclear 17 %; Body Fluid WBC 171 /CUMM
[2024-10-12 17:30] LABS: Body Fluid Second Tech CMC
[2024-10-12] MEDS: APRESOLINE 25 MG PO (19:44)
[2024-10-12 21:27] LABS: Glucose - Point of Care 179 mg/dl (70-99)
[2024-10-13 03:21] VITALS: BP 136/75
[2024-10-13 07:00] VITALS: BP 150/89
[2024-10-13 07:13] LABS: Glucose - Point of Care 227 mg/dl (70-99)
[2024-10-13] MEDS: NOVOLOG FLEXPEN-LOW RESISTANCE 2 UNITS SC (07:52)
[2024-10-13] MEDS: COREG 12.5 MG PO ×2 (07:53→21:15)
[2024-10-13] MEDS: LOW STRENGTH ASPIRIN 81 MG PO (07:53)
[2024-10-13] MEDS: APRESOLINE 25 MG PO ×2 (07:53→21:15)
[2024-10-13] MEDS: IMDUR (EXTENDED RELEASE) 30 MG PO (07:53)
[2024-10-13] MEDS: LASIX 40 MG IV (07:54)
[2024-10-13 08:18] LABS: Blood Urea Nitrogen 35 mg/dl (9-20); Calcium 7.9 mg/dl (8.4-10.2); Carbon Dioxide 23 mmol/L (22-30); Chloride 104 mmol/L (98-107); Estimated Creatinine Clearance 68 ml/min; Glucose 242 mg/dl (70-99); Potassium 5.1 mmol/L (3.5-5.1); Sodium 133 mmol/L (135-145); eGFR 58.15
[2024-10-13] MEDS: NOVOLOG MIX 70/30 FLEXPEN 14 UNITS SC (08:38)
[2024-10-13 10:00] VITALS: BMI 24.1
--- NOTE | 2024-10-13 10:20 | CM ---
CM reviewed chart, patient seen bedside with father, inquiring about SSI information, CM provided information regarding how to apply, local office, contact number to call to apply. CM will continue to follow for all discharge planning needs.
Plan; home with family, no needs.
[2024-10-13 10:27] VITALS: BMI 24.0
[2024-10-13 11:00] VITALS: BP 141/82
[2024-10-13 11:17] LABS: Glucose - Point of Care 66 mg/dl (70-99)
[2024-10-13 11:36] LABS: Glucose - Point of Care 68 mg/dl (70-99)
[2024-10-13] MEDS: NOVOLOG FLEXPEN-LOW RESISTANCE SC (11:52)
[2024-10-13 12:03] LABS: Glucose - Point of Care 87 mg/dl (70-99)
--- NOTE | 2024-10-13 12:55 | W.PN.CARDCBS ---
Addendum entered and electronically signed by Nayely Wynn MD 10/13/24 16:51:
I saw and examined the patient.
The Curriculum Facilitator's note was reviewed and I agree with the note. Discussed treatment plan with patient and family at the bedside.
Exam with Distant heart sounds. Regular rate and rhythm. 2/6 basal systolic murmur. Decreased breath sounds at the bases. Crackles noted. +1 to +2 lower extremity edema.
Comment: Presented with respiratory insufficiency in the setting of acute heart failure with reduced ejection fraction. Prior admission in August with flu, hyperkalemia and requirement for transient dialysis noted. Admission to [place] also
for flu/pneumonia and elevated troponin 09/22/2024 to 09/26/2024. At this time patient has been diuresing. However creatinine is increasing. Repeat creatinine and potassium more elevated. Plan eventually for right and left heart cath when
stabilized. Possibly tomorrow.
Plan at this time:
Nephrology consult prior to cardiac catheterization.
Possible right and left heart catheterization tomorrow
Hold on any nephrotoxic medication till evaluated by nephrology
Continue to follow blood work.
For now avoid JANIYA inhibitor/ARB/Aldactone. Given type 1 diabetes avoid SGLT2 inhibitors.
Continue hydralazine and nitrates.
Lasix currently on hold until evaluated.
Statin added this admission.
Telemetry stable.
Original Note:
Today's Communication / Plan
-
holding lasix
repeat Cr now
possible cath later today vs in AM
Impression / Plan
-
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 Becerra to establish care 11/2024
Assessment:
Presentation with syncopal episode, possibly hypoxia driven
Acute hypoxic respiratory insufficiency
Acute HFrEF
B/L pleural effusion
Cardiomyopathy, EF 30-35%, unknown type
History of trop elevation during prior admission
Admission to 09/22-09/26/24 for flu/PNA/elevated troponin
Admission x2 to [facility] 08/2024 for flu, hyperkalemia requiring transient HD
Diabetes, treated as type 1, diagnosed in mid 20s
Former tobacco use
Former ETOH abuse
Former meth abuse
ECHO 09/23/24: EF 30 to 35%, global hypokinesis, moderate concentric LVH, moderate MR, possible aortic valve with functional bicuspid or tricuspid with fused raphe, trace AR, mild TR, PAP 35 mmHg
Echo 10/12/2024: EF 35%, global hypokinesis, mild concentric LVH, mild to moderate MR, possible bicuspid valve, aortic sclerosis, mild TR, PAP 41 mmHg, small pericardial effusion, pleural effusion present
Plan:
-Records reviewed from [facility] as well as most recent admission at [place] during which cardiology was not consulted. Patient with multiple recent admissions initially for chest pain, flu, CHF, then for hyperkalemia requiring transient HD, then
for pneumonia secondary to flu with elevated troponin, now back with syncopal episode and evidence of acute heart failure.
-Chest CT without PE or dissection, but did note bilateral pleural effusions and mild coronary artery calcifications
-proBNP 18996. He has diuresed and underwent R thoracentesis for 900cc on 10/12. off oxygen, however Cr up to 1.5. lasix now on hold. repeat Cr now. Was on p.o. Lasix 40 mg daily as outpatient
-CHF education
-Echocardiogram from 09/23 as well as 10/12/2024 reviewed as above, EF 35%
-Last admission troponins were elevated as high as 0.09. Patient denies chest pain. In the setting of diabetes, former substance abuse, will require cardiac catheterization this admission. pending Cr, possibly this afternoon vs in AM
-Guideline directed medical therapy limited due to hyperkalemia. Not candidate for janiya/arb/arni/aldactone. not SGLT2 candidate due to type 1 diabetes. continue coreg. low dose hydralazine/nitrates.
-asa added 10/12
-LDL 83. Goal LDL less than 70 given diabetes. statin added 10/12
Progress Note - Batch And Furnace Operator
Subjective
Date of Service: October 13, 2024
reports breathing significantly improved post thoracentesis. continues with good urine output
Objective
Labs:
10/11/24 21:44
10/13/24 07:19
Labs
Hgb 10.3 g/dL (13.0-18.0) L 10/11/24 21:44
Hct 32.8 % (39.0-52.0) L 10/11/24 21:44
Plt Count 241 10^3/uL (130-400) 10/11/24 21:44
Sodium 133 mmol/L (135-145) L 10/13/24 07:19
Potassium 5.1 mmol/L (3.5-5.1) 10/13/24 07:19
BUN 35 mg/dl (9-20) H 10/13/24 07:19
Creatinine 1.5 mg/dL (0.7-1.3) H 10/13/24 07:19
Glucose 242 mg/dl (70-99) H 10/13/24 07:19
Vital Signs and I&O:
Vital Signs
Temp Pulse Resp BP Pulse Ox
97.9 F 77 20 141/82 94
10/13/24 11:00 10/13/24 11:00 10/13/24 11:00 10/13/24 11:00 10/13/24 11:00
Vital Signs
Temp Pulse Resp BP Pulse Ox
97.9 F 77 20 141/82 94
10/13/24 11:00 10/13/24 11:00 10/13/24 11:00 10/13/24 11:00 10/13/24 11:00
Intake & Output
10/11/24 10/12/24 10/13/24 10/14/24
07:59 07:59 07:59 07:59
Intake Total 480 / 480
Output Total 2200 / 2200
Balance -2200 / -2200 480 / 480
Physical Exam
Physical Exam
GEN: No distress, awake, alert, oriented x3
HEENT: supple, anicteric, mmm, eomi
LUNGS: Few scattered crackles, no wheezes
CV: Reg, S1/S2, no murmur
ABD: soft, BS+, NT/ND
EXT: No cyanosis, clubbing. trace edema of B/L LE
NEURO: Gross non-focal
SKIN: warm, pink, dry. No rash
--- NOTE | 2024-10-13 13:26 | W.PN.HOSP.TC ---
Today's Communication/Plan
-
see note
f/u repeat BMP
Assessment / Plan
Assessment / Plan
TTE on 10/12
Normal left ventricular chamber size. Moderately reduced left ventricular
systolic function. Global hypokinesis. Left ventricular ejection fraction is
35% by volumetric assessment. Mild concentric left ventricular hypertrophy.
Normal right ventricular size and function.
Mild to moderate mitral regurgitation.
Possible bicuspid valve with adequate leaflet excursion. Aortic sclerosis
without stenosis.
Mild tricuspid regurgitation. Estimated pulmonary artery pressure of 41 mmHg,
assuming a right atrial pressure of 3 mmHg.
Small pericardial effusion without evidence of hemodynamic compromise. Pleural
effusion present.

1. Systolic HF exacerbation
- xr showing pulm edema/pleural effusion. Probnp 18.9k.
- Compliant with home dose of lasix .
- hold IV lasix 40mg/bid as cr increased
-Patient gone for [facility] tomorrow although if renal function worsens will need to be postponed
2. Bilateral pleural effusion
- CT chest images reviewed
-s/p drainage of 900cc transudative fluid from right side
3. Acute hypoxic resp insufficiency -resolved
4. BELLO
-cr bumped up to 1.5
-hold further lasix
5. IDDM
- on Novolg 70/30 14 u in AM and 7 u pm . maintain on ISS
6. Hyperkalemia
-trended down with lasix
-low K diet
7. Hyponatremia
-from HF related likely
-monitor
8. Chronic normocytic anemia
-reason unclear, hbg improved from last discharge
9. h/o substance use
-UDS neg.
DVT PPX - lovenox
Full code
Total time spent : 51 mins
I personally saw and examined the patient.
I have reviewed all diagnostic interpretations and treatment plans as written.
Time includes patient management by me, time spent at the patients bedside, time to review lab and imaging results, discussing patient care, documentation in the medical record, and time spent with the family or caregiver and discussing care plan
with RN/Consultants.
Anticipated Discharge: 24 - 48 hours
Subjective/Interval History
-
Date of Service: October 13, 2024
feeling better
off of o2
no other reported problems
Objective Data
-
Labs:
Laboratory Results
10/13/24 10/13/24
07:19 13:08
Sodium 133 L Pending
Potassium 5.1 Pending
Chloride 104 Pending
Carbon Dioxide 23 Pending
BUN 35 H Pending
Creatinine 1.5 H Pending
Glucose 242 H Pending
Calcium 7.9 L Pending
Vital Signs:
Vital Signs
Temp Pulse Resp BP Pulse Ox
97.9 F 77 20 141/82 94
10/13/24 11:00 10/13/24 11:00 10/13/24 11:00 10/13/24 11:00 10/13/24 11:00
I&O
10/12/24 10/13/24 10/14/24
06:59 06:59 06:59
Intake Total 480 / 480
Output Total 2200 / 2200
Balance -2200 / -2200 480 / 480
Review of Systems
-
Respiratory: Reports No Symptoms
Cardiac: Reports No Symptoms
Abdomen/GI: Reports No Symptoms
Physical Exam
-
General: Comfortable and Conversant; Negative Respiratory Distress
HEENT: Negative Oxygen
Respiratory: Clear to Auscultation
Cardiac: Regular Rhythm and S1/S2
GI: Soft, Nontender and Nondistended
Neuro: Awake, Alert, Oriented and AO x 3
Psych: Calm and Intact Judgement/Insight
[2024-10-13 14:47] LABS: Blood Urea Nitrogen 36 mg/dl (9-20); Calcium 8.4 mg/dl (8.4-10.2); Carbon Dioxide 27 mmol/L (22-30); Chloride 101 mmol/L (98-107); Estimated Creatinine Clearance 64 ml/min; Glucose 169 mg/dl (70-99); Potassium 5.5 mmol/L (3.5-5.1); Sodium 134 mmol/L (135-145); eGFR 53.81
[2024-10-13 16:40] LABS: Glucose - Point of Care 178 mg/dl (70-99)
[2024-10-13] MEDS: NOVOLOG FLEXPEN-LOW RESISTANCE 1 UNITS SC (17:37)
[2024-10-13] MEDS: NOVOLOG MIX 70/30 FLEXPEN 7 UNITS SC (17:37)
[2024-10-13] MEDS: LIPITOR 40 MG PO (17:38)
[2024-10-13] MEDS: LOVENOX 40 MG SC (17:38)
--- NOTE | 2024-10-13 18:21 | W.CON.NEPH ---
Consultation
-
Date/Time Consultation Requested: October 13, 2024 at 3 PM
Date/Time Consultation Performed: October 13, 2024 at 6:30 PM
Requesting Provider: Dr. Teague
Performing Provider: Dr. Li
Reason for Consultation: Acute kidney injury and hyperkalemia
Medical History
-
Chief Complaint: Acute kidney injury
History of Present Illness:
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
at [facility] with a baseline creatinine of 1.2-1.4, presents to the ER status post unresponsive requiring CPR done by the family.
When EMS arrived the patient was awake and alert hemodynamically stable. His vitals were stable in the emergency room.
Renal consult for acute kidney injury with a creatinine 1.6 and admitting creatinine of 1.2. He was discharged a month ago with a creatinine of 1.5. He was getting diuresed since he has been here and per records he was 87 kg on admission and is
currently 80 kg.
Status post thoracentesis 900 cc
Plan for left heart catheterization tomorrow pending renal function.
Past Medical History
essential HTN, HLD, DM, HF With reduced EF 30-35%
Security stage II versus 3 Baseline creatinine 1.2-1.4
Social History
Tobacco: Former Smoker
Alcohol: Former
Drug: Former User (meth)
Personal: Single
Living: With Family
Employment: Other ( recently released from incarceration)
Family History
no CKD
Father with diabetes
Family History: Not Pertinent
Allergies / Home Medications
Allergy/AdvReac Type Severity Reaction Status Date / Time
venom-honey bee Allergy Hives Verified 10/11/24 17:30
[bee venom (honey bee)]
�Medication �Instructions �Recorded �Confirmed �Type
furosemide 40 mg tablet (Lasix) 40 mg PO DAILY Fluid 09/22/24 09/22/24 History
Retention/Swelling
insulin aspar prt-insulin aspart 7 unit SC HS Diabetes 09/22/24 09/22/24 History
100 unit/mL (70-30) subcutaneous
soln (Novolog Mix 70-30 U-100
Insuln)
insulin aspar prt-insulin aspart 14 unit SC DAILY Diabetes 09/22/24 09/22/24 History
100 unit/mL (70-30) subcutaneous
soln (Novolog Mix 70-30 U-100
Insuln)
azithromycin 500 mg tablet 500 mg PO DAILY 3 days #3 tabs 09/26/24 Rx
(Zithromax)
carvedilol 12.5 mg tablet 12.5 mg PO BID #60 tabs 09/26/24 Rx
cefdinir 300 mg capsule 300 mg PO BID 3 days #6 caps 09/26/24 Rx
Review of Systems
-
No chest pain or shortness of breath. Lower extremity swelling.
All other systems: Negative unless noted
Physical Exam
Vital Signs
Vital Signs
Temp Pulse Resp BP Pulse Ox
97.9 F 77 20 141/82 94
10/13/24 11:00 10/13/24 11:00 10/13/24 11:00 10/13/24 11:00 10/13/24 11:00
Lab Results
WBC 11.3 10^3/uL (4.8-10.8) H 10/11/24 21:44
RBC 3.56 10^6/uL (4.70-6.10) L 10/11/24 21:44
Hgb 10.3 g/dL (13.0-18.0) L 10/11/24 21:44
Hct 32.8 % (39.0-52.0) L 10/11/24 21:44
Plt Count 241 10^3/uL (130-400) 10/11/24 21:44
Sodium 134 mmol/L (135-145) L 10/13/24 14:19
Potassium 5.5 mmol/L (3.5-5.1) H 10/13/24 14:19
Chloride 101 mmol/L (98-107) 10/13/24 14:19
Carbon Dioxide 27 mmol/L (22-30) 10/13/24 14:19
BUN 36 mg/dl (9-20) H 10/13/24 14:19
Creatinine 1.6 mg/dL (0.7-1.3) H 10/13/24 14:19
eGFR 53.81 10/13/24 14:19
Glucose 169 mg/dl (70-99) H 10/13/24 14:19
Calcium 8.4 mg/dl (8.4-10.2) 10/13/24 14:19
Phosphorus 4.8 mg/dl (2.5-4.5) H 10/12/24 07:25
Wmy-A-Dlaxoqtkmij Pept 56561 pg/ml 10/11/24 21:44
Albumin 3.6 g/dl (3.5-5.0) 10/11/24 21:44
Physical Exam
General no acute distress
HEENT no cephalic atraumatic extraocular muscle intact no scleral icterus no JVD neck supple
lungs clear to auscultation bilateral
heart regular S1-S2 positive
abdomen soft nontender positive bowel sounds
extremities +2 edema
Neurologically nonfocal alert and oriented x 3
Skin no lesions no abrasions no petechiae
Psych normal affect no bizarre behavior
Data Reviewed
-
Radiology: Image Personally Visualized and interpreted (No pulmonary edema no pneumothorax status post thoracentesis)
Labs: Labs Reviewed by me, Discussed with Nurse and Discussed with Patient
Assessment/Plan
-
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
at [facility] with a baseline creatinine of 1.2-1.4, presents to the ER status post unresponsive requiring CPR done by the family.
When EMS arrived the patient was awake and alert hemodynamically stable. His vitals were stable in the emergency room.
Renal consult for acute kidney injury with a creatinine 1.6 and admitting creatinine of 1.2. He was discharged a month ago with a creatinine of 1.5. He was getting diuresed since he has been here and per records he was 87 kg on admission and is
currently 80 kg.
Status post thoracentesis 900 cc
Plan for left heart catheterization tomorrow pending renal function.
IMP:
BELLO versus CKD 2 baseline cr 1.2-1.4
Sepsis
Non-ischemic Troponin Elevation
HFrEF-EF 30-35%; Moderate concentric LVH
Anemia
hyponatremia
Recent hospitalization for renal Failure, resistant hyperkalemia at [facility]-was on HD briefly
Meth abuse
Polysubstance Abuse
DM
HLD
Plan:
Acute kidney injury multifactorial with diuresis since admission as well as CTA rule out PE which was negative.
Creatinine on admission 1.2. Creatinine on consultation 1.6.
Potassium 5.5.= Partially due to hyperglycemia of 260 repeat was 176
Agree with holding diuretics. If weights are accurate he was admitted at 87 kg he is down to 80 kg.
Lokelma x 1.
2 g potassium diet as discussed with patient/adjusted diet order.
Check labs in the a.m.
[2024-10-13] MEDS: LOKELMA 10 GRAM PO (19:24)
[2024-10-13 19:54] VITALS: BP 165/95
[2024-10-13 21:50] LABS: Glucose - Point of Care 147 mg/dl (70-99)
[2024-10-13 23:41] VITALS: BP 150/84
[2024-10-14 02:00] LABS: Glucose - Point of Care 248 mg/dl (70-99)
[2024-10-14 03:38] VITALS: BP 150/84
[2024-10-14 05:52] LABS: Glucose - Point of Care 199 mg/dl (70-99)
[2024-10-14 06:00] VITALS: BMI 23.7
[2024-10-14 07:33] LABS: Blood Urea Nitrogen 42 mg/dl (9-20); Calcium 8.2 mg/dl (8.4-10.2); Carbon Dioxide 24 mmol/L (22-30); Chloride 106 mmol/L (98-107); Estimated Creatinine Clearance 68 ml/min; Glucose 154 mg/dl (70-99); Sodium 135 mmol/L (135-145); eGFR 58.15
[2024-10-14 08:00] VITALS: BP 163/103
[2024-10-14 10:11] LABS: Hematocrit 29.5 % (39.0-52.0); Hemoglobin 9.1 g/dL (13.0-18.0); Mean Corp Hgb Conc. 30.8 g/dL (33.0-37.0); Mean Corpuscular Hgb 28.7 pg (27.0-31.0); Mean Corpuscular Volume 93.1 fL (80.0-94.0); Mean Platelet Volume 12.3 fL (7.4-10.4); Platelet Count 202 10^3/uL (130-400); Red Blood Cell Count 3.17 10^6/uL (4.70-6.10); White Blood Cell Count 7.7 10^3/uL (4.8-10.8)
[2024-10-14] MEDS: NOVOLOG FLEXPEN-LOW RESISTANCE SC ×3 (10:35→20:17)
[2024-10-14 10:37] VITALS: BP 150/92
[2024-10-14] MEDS: TYLENOL 650 MG PO (10:40)
[2024-10-14] MEDS: IMDUR (EXTENDED RELEASE) 30 MG PO (10:40)
[2024-10-14] MEDS: APRESOLINE 25 MG PO ×2 (10:40→20:20)
[2024-10-14] MEDS: COREG 12.5 MG PO ×2 (10:40→20:20)
[2024-10-14] MEDS: LOW STRENGTH ASPIRIN 81 MG PO (10:41)
--- NOTE | 2024-10-14 11:23 | W.PN.NEPH.PH ---
Today's Communication / Plan
-
cath
Assessment/Plan
-
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
at [facility] with a baseline creatinine of 1.2-1.4, presents to the ER status post unresponsive requiring CPR done by the family.
When EMS arrived the patient was awake and alert hemodynamically stable. His vitals were stable in the emergency room.
Renal consult for acute kidney injury with a creatinine 1.6 and admitting creatinine of 1.2. He was discharged a month ago with a creatinine of 1.5. He was getting diuresed since he has been here and per records he was 87 kg on admission and is
currently 80 kg.
Status post thoracentesis 900 cc
Plan for left heart catheterization tomorrow pending renal function.
IMP:
BELLO baseline cr 1.2-1.4
Sepsis
Non-ischemic Troponin Elevation
HFrEF-EF 30-35%; Moderate concentric LVH
Anemia
hyponatremia
Recent hospitalization for renal Failure, resistant hyperkalemia at [facility]-was on HD briefly
Meth abuse
Polysubstance Abuse
DM
HLD
Plan:
for LHC/RHC today
bicarb IVF
follow BMP
can likely restart lasix over weekend
-
-
Date of Service: October 14, 2024
CC / HPI / ROS
-
Chief Complaint:
BELLO
History of Present Illness:
BELLO/Cr stable at 1.5
BP stable high
no supplemental O2
weights down
Review of Systems:
no CP/SOB
Labs
-
Labs:
WBC 7.7 10^3/uL (4.8-10.8) 10/14/24 06:56
RBC 3.17 10^6/uL (4.70-6.10) L 10/14/24 06:56
Hgb 9.1 g/dL (13.0-18.0) L 10/14/24 06:56
Hct 29.5 % (39.0-52.0) L 10/14/24 06:56
Plt Count 202 10^3/uL (130-400) 10/14/24 06:56
Sodium 135 mmol/L (135-145) 10/14/24 06:56
Potassium 5.0 mmol/L (3.5-5.1) 10/14/24 06:56
Chloride 106 mmol/L (98-107) 10/14/24 06:56
Carbon Dioxide 24 mmol/L (22-30) 10/14/24 06:56
BUN 42 mg/dl (9-20) H 10/14/24 06:56
Creatinine 1.5 mg/dL (0.7-1.3) H 10/14/24 06:56
eGFR 58.15 10/14/24 06:56
Glucose 154 mg/dl (70-99) H 10/14/24 06:56
Calcium 8.2 mg/dl (8.4-10.2) L 10/14/24 06:56
Phosphorus 4.8 mg/dl (2.5-4.5) H 10/12/24 07:25
Xco-H-Mpodjohkwmc Pept 46085 pg/ml 10/11/24 21:44
Albumin 3.6 g/dl (3.5-5.0) 10/11/24 21:44
Physical Exam
-
Vital Signs:
Vital Signs
Temp Pulse Resp BP Pulse Ox
98 F 81 16 150/92 92
10/14/24 10:37 10/14/24 10:37 10/14/24 10:37 10/14/24 10:37 10/14/24 10:37
Cardiovascular:: Regular rate and rhythm
Respiratory:: Bilateral: Coarse
Lung Excursion:: Normal
Abdomen:: Nontender and Soft
Bowel Sounds:: Normal
Extremity Edema:: +3: Bilateral:
[2024-10-14] MEDS: SODIUM BICARBONATE 1150 MEQ IV (13:55)
--- NOTE | 2024-10-14 14:04 | W.PN.HOSP.TC ---
Today's Communication/Plan
-
see note
Assessment / Plan
Assessment / Plan
TTE on 10/12
Normal left ventricular chamber size. Moderately reduced left ventricular
systolic function. Global hypokinesis. Left ventricular ejection fraction is
35% by volumetric assessment. Mild concentric left ventricular hypertrophy.
Normal right ventricular size and function.
Mild to moderate mitral regurgitation.
Possible bicuspid valve with adequate leaflet excursion. Aortic sclerosis
without stenosis.
Mild tricuspid regurgitation. Estimated pulmonary artery pressure of 41 mmHg,
assuming a right atrial pressure of 3 mmHg.
Small pericardial effusion without evidence of hemodynamic compromise. Pleural
effusion present.

1. Systolic HF exacerbation
- xr showing pulm edema/pleural effusion. Probnp 18.9k.
- Compliant with home dose of lasix .
- hold IV lasix 40mg/bid as cr increased
-Getting [facility] today
2. Bilateral pleural effusion
- CT chest images reviewed
-s/p drainage of 900cc transudative fluid from right side
3. Acute hypoxic resp insufficiency -resolved
4. BELLO
-cr bumped up to 1.5
-hold further lasix
-Nephro input requested with simultaneous hyperkalemia
-plan to get bicarb IVF with need of contrast
5. IDDM
- on Novolg 70/30 14 u in AM and 7 u pm . maintain on ISS
6. Hyperkalemia
-reason unclear
-to be started on low K diet post [facility]
-got dose of lokelma
7. Hyponatremia
-from HF related likely
-monitor
8. Chronic normocytic anemia
-reason unclear, hbg improved from last discharge
9. h/o substance use
-UDS neg.
DVT PPX - lovenox
Full code
Anticipated Discharge: 24 - 48 hours
Subjective/Interval History
-
Date of Service: October 14, 2024
No problems overnight
Remains off of oxygen
Objective Data
-
Labs:
Laboratory Results
10/14/24
06:56
WBC 7.7
Hgb 9.1 L
Hct 29.5 L
Plt Count 202
Sodium 135
Potassium 5.0
Chloride 106
Carbon Dioxide 24
BUN 42 H
Creatinine 1.5 H
Glucose 154 H
Calcium 8.2 L
Vital Signs:
Vital Signs
Temp Pulse Resp BP Pulse Ox
98 F 81 16 150/92 92
10/14/24 10:37 10/14/24 10:37 10/14/24 10:37 10/14/24 10:37 10/14/24 10:37
I&O
10/13/24 10/14/24 10/15/24
06:59 06:59 06:59
Intake Total 480 / 480
Output Total 2200 / 2200
Balance -2200 / -2200 480 / 480
Review of Systems
-
Respiratory: Reports No Symptoms
Cardiac: Reports No Symptoms
Abdomen/GI: Reports No Symptoms
Physical Exam
-
General: Comfortable and Conversant; Negative Respiratory Distress
HEENT: Negative Oxygen
Respiratory: Clear to Auscultation
Cardiac: Regular Rhythm and S1/S2
GI: Soft, Nontender and Nondistended
Neuro: Awake, Alert, Oriented and AO x 3
Psych: Calm and Intact Judgement/Insight
[2024-10-14 14:16] LABS: Glucose - Point of Care 130 mg/dl (70-99)
[2024-10-14 15:49] VITALS: BP 152/96
--- NOTE | 2024-10-14 15:54 | CM ---
CM reviewed chart, patient plan remains the same. CM will continue to follow for all discharge planning needs.
Plan; home with family
[2024-10-14] MEDS: NOVOLOG MIX 70/30 FLEXPEN SC ×2 (16:48→20:17)
[2024-10-14 18:12] LABS: ACT-LR - POC 215 Seconds (116-155)
--- NOTE | 2024-10-14 19:10 | ITS.CL.PN ---
Program Coordinator - Procedure Note
Procedure
Procedure Note:
CARDIAC CATHETERIZATION REPORT
Date of Procedure: 10/14/2024
Referring: Dr. Isela Sanderson MD
Indication: cardiomyopathy
PROCEDURE(S)
1. right heart catheterization
2. left heart catheterization
3. coronary angiography
4. iFR LAD
5. iFR LCx
6. IVUS LM
ACCESS
1. 6F right radial artery (closure: radial band)
2. 5F right antecubital vein (closure: manual hemostasis)
CATHETERS
1. 5F [place]
2. 6F JR4
3. 6F JL4
4. EBU3.75 guide catheter
MODERATE SEDATION: 50 minutes of moderate sedation was utilized. An independent medical claims specialist was present to assist with and help manage the patient's level of consciousness and physiologic status.
ULTRASOUND GUIDED VASCULAR ACCESS (right brachial vein): Ultrasound was utilized for vascular access. The vessel was visualized under ultrasound and noted to be patent. An image of the vessel was stored permanently in the patient's medical record.
Under direct ultrasound guidance, vascular access was obtained using a modified Seldinger technique and a 5 [place] sheath was placed.
ULTRASOUND GUIDED VASCULAR ACCESS (right radial artery): Ultrasound was utilized for vascular access. The vessel was visualized under ultrasound and noted to be patent. An image of the vessel was stored permanently in the patient's medical record.
Under direct ultrasound guidance, vascular access was obtained using a modified Seldinger technique and a 6 [place] sheath was placed.
HEMODYNAMIC DATA
LV 152/14 (EDP 23) mmHg
AO 138/91 (mean 110) mmHg
RA 15 mmHg
RV 55/6 (EDP 14) mmHg
PA 56/31 (mean 39) mmHg
PCWP 26 mmHg
SaO2 90.3%
SvO2 60.3%
Hb 8.4 g/dL
CO/CI 7.33/3.65 L/min/m2
SVR 1037 dsc*-5
PVR 1.7 Wood units
CORONARY ANGIOGRAPHY
Dominance: right
LM: Large vessel with 50 to 60% eccentric distal shaft narrowing, further interrogated by iFR and IVUS
LAD: Large vessel giving rise to a large branching D1 and wrapping around the apex. There is a focal 50-60% stenosis in the ostial to proximal LAD and a smooth 30% stenosis in the mid vessel after the D1. The D1 has a focally severe ostial
stenosis, and a focally moderate stenosis in the mid body of the lower branch.
LCx: Moderate caliber vessel giving rise to a small OM1, very small OM2, and large branching OM3. There is mild angiographic disease..
RCA: Moderate caliber vessel giving rise to moderate caliber RPDA and 3 small RPL branches. There are trivial luminal irregularities.
iFR of LAD
An Omni wire was flushed and zeroed outside the body and then advanced to the ostial left main. The wire introducer was removed and the catheter flushed with saline, after which pressure of the wire and guide were normalized. The wire was advanced
to the mid LAD and iFR recorded at 0.72. iFR pullback was performed noting some contribution from the proximal to mid LAD but a significant focal contribution from the ostial LAD or distal left main. On return to the left main, iFR appropriately
normalized to ~1.0, confirming lack of wire drift.
IVUS of left main to LAD
An [place] IVUS catheter was advanced to the ostial left main and ringdown performed. The catheter was advanced to the mid LAD and pullback performed. The catheter was again advanced from the ostial left main to the mid LAD with a recording done
antegrade. There was noted to be focally severe disease in the ostial LAD. Due to calcific shadowing precise quantification of MLA of the distal left main could not be performed but there was clearly significant disease there.
iFR of LCx
iFR of the circumflex was performed to try to isolate the contribution from the distal left main to clarify the above ambiguity regarding the severity of the distal left main. An Omni wire was flushed and zeroed outside the body and then advanced to
the left main. The wire introducer was removed and the catheter flushed with saline, after which pressure of the wire and guide were normalized. The wire was advanced to the mid LCx and iFR recorded at 0.87, 0.7, and 0.86. iFR pullback was performed
noting significant focal pattern with most contribution from what appeared to be the ostial circumflex rather than the ostial left main. In any case, on return to the ostial left main, iFR appropriately normalized to ~1.0, confirming lack of wire
drift.
RADIATION: dose 960 mGy; DAP 104 Gy*cm2; fluoroscopy time 20 min
CONCLUSIONS
1. Severe multivessel coronary artery disease as described with angiographically significant disease in the distal left main, ostial LAD, and ostial large D1.
2. iFR of LAD confirmed hemodynamic significance.
3. IVUS of the left main into LAD demonstrated severe disease in the distal left main and ostial LAD but precise MLA of the left main could not be obtained due to calcific shadowing.
4. iFR of the left circumflex demonstrates hemodynamic significance at the circumflex either from poorly angiographically appreciated disease in the ostial circumflex or significant disease in the distal left main.
5. Right heart catheterization demonstrates elevated biventricular filling pressures, severe postcapillary pulmonary hypertension, and preserved cardiac output and index.
6. There is no significant gradient on hemodynamic pullback across the aortic valve.
RECOMMENDATIONS
1. expectant management after cardiac catheterization via right radial artery and right brachial vein approach
2. referral for coronary artery bypass grafting (with grafts to the LAD, D1, and large OM) given severe multivessel coronary artery disease including significant proximal LAD and likely significant ostial LM disease, cardiomyopathy with reduced EF,
diabetes status, and young age
3. diuresis to achieve euvolemia with careful attention to renal function and titration of guideline directed medical therapy for heart failure
4. aggressive secondary prevention of CAD with high intensity statin, ASA
Copy to: Dr. Dorota Llamas MD (PCP)
Signed: Taj Brennan MD, PhD
[2024-10-14 19:21] LABS: Glucose - Point of Care 112 mg/dl (70-99)
[2024-10-14] MEDS: LOVENOX SC (20:17)
[2024-10-14] MEDS: LIPITOR 40 MG PO (20:20)
[2024-10-14 22:26] VITALS: BP 151/92
[2024-10-14 23:36] LABS: Glucose - Point of Care 201 mg/dl (70-99)
[2024-10-14 23:58] LABS: % Basophils 0.5 % (0-2); % Eosinophils 2.2 % (0-6); % Immature Granulocytes 0.4 % (0-0.5); % Lymphocytes 16.4 % (20.5-51.1); % Monocytes 5.6 % (1.7-9.3); % Neutrophils 74.9 % (42.2-75.2); Absolute Eosinophils 0.2 10^3/uL (0-0.7); Absolute Lymphocytes 1.3 10^3/uL (1.2-3.4); Absolute Monocytes 0.4 10^3/uL (0.1-0.6); Absolute Neutrophils 5.8 10^3/uL (1.4-6.5); Hematocrit 27.7 % (39.0-52.0); Hemoglobin 8.7 g/dL (13.0-18.0); Mean Corp Hgb Conc. 31.4 g/dL (33.0-37.0); Mean Corpuscular Hgb 28.8 pg (27.0-31.0); Mean Corpuscular Volume 91.7 fL (80.0-94.0); Mean Platelet Volume 12.3 fL (7.4-10.4); Nucleated Red Blood Cells % 0 % (-); Platelet Count 185 10^3/uL (130-400); Red Blood Cell Count 3.02 10^6/uL (4.70-6.10); Red Cell Dist. Width 13.9 % (11.5-14.5); White Blood Cell Count 7.7 10^3/uL (4.8-10.8)
[2024-10-15] VITALS (8 sets, daily range): BP systolic 91–182; BP diastolic 55–97; BMI 23.7
[2024-10-15 00:03] LABS: INR 1.01; PT 13.6 Sec (11.4-14.6)
[2024-10-15 00:04] LABS: APTT 29.8 Sec (23.4-35.0)
[2024-10-15 00:07] LABS: ALT (SGPT) 20 U/L (0-50); AST (SGOT) 27 U/L (17-59); Alkaline Phosphatase 101 U/L (38-126); Blood Urea Nitrogen 37 mg/dl (9-20); Calcium 8.2 mg/dl (8.4-10.2); Carbon Dioxide 26 mmol/L (22-30); Chloride 103 mmol/L (98-107); Estimated Creatinine Clearance 85 ml/min; Glucose 199 mg/dl (70-99); Magnesium 1.8 mg/dl (1.6-2.3); Potassium 5.3 mmol/L (3.5-5.1); Sodium 132 mmol/L (135-145); Total Bilirubin 0.9 mg/dl (0.2-1.3); Total Protein 5.6 g/dl (6.3-8.2); eGFR > 60.00
[2024-10-15 00:18] LABS: Troponin I 0.039 ng/ml
--- NOTE | 2024-10-15 00:24 | W.PN.UPDATE ---
Update Note
Progress Note Update
-at ~ 23:10 pt became bradycardic (sinus yvonne 30s-low 40s) and was found to be unresponsive for 1-2 minutes. After quick sternal rub, pt became responsive and said that he just wants to sleep and to have BM. BP was 109/90 and pOx low 80s on RA, but
improved to 95% on 6L. HR improved to 80s and re-check BP was 167/102. Pt was A&O x3, moved all extremities, denied any CP or any complaints. He denied feeling any dizziness prior to the episode or afterwards. He didn't require any CPR or meds.
Sodium bicarb fluids were already going @ 80cc/hr after cath and briefly increased rate during the episode. BG was 201 (112 prior). Pt had BM after the episode. Unclear if he had vagal reaction and became bradycardic and unresponsive. Hypoxia noted
as well.
-Pt had cath 10/14 revealing severe mv-CAD, including distal LM, ostial LAD, and ostial D1. PCWP was 26. ECG after the episode was without acute changes. Cath was via R radial - looks ok. No groin incisions
-Labs were sent: Hg 8.7 (9.1 prior), Cr improved 1.2 (1.5 prior), trop trending down. K was 5.3, Mg 1.8, BG 199. Gave 10 mg po Lokelma for hyperkalemia, 1 unit Novolog for BG.
-will continue to monitor. Will hold Coreg for now, bed rest. Check labs in am.
-discussed with Dr. Becerra
--- NOTE | 2024-10-15 00:31 | RR ---
A Rapid Response was called on this patient, please see Rapid Response form.
[2024-10-15] MEDS: NOVOLOG FLEXPEN 1 UNITS SC (00:42)
[2024-10-15] MEDS: LOKELMA 10 GRAM PO (00:42)
--- NOTE | 2024-10-15 00:50 | PTCARENOTE ---
Addendum entered by Melissa Small, RN 10/15/24 01:05:
pt noted to yvonne at 2310 on tele, not 2330.
Original Note:
pt received from photo lab specialist at change of shift. pt AOX3, tele reading NSR in 80s. BP elevated in the 160s-170s. TR band weaned off per protocol. Around 2330, pt noted on tele to yvonne down into the 30s. RNs to pt bedside immediately, pt unresponsive.
Rapid response called, full set of vital signs taken, pt. responding to sternal rub, but waking up agitated. Labs, EKG, accucheck completed. No medications given during rapid response. Pt. back to baseline at this time. BP continuing to cycle.
Continuous pulse ox on. CT JEFFERSON Traore at patient bedside, made Dr. Celaya aware of episode. Pt placed on bedrest at this time. Call ochoa within reach. Continuing to monitor at this time.
[2024-10-15 03:53] LABS: Hematocrit 26.2 % (39.0-52.0); Hemoglobin 8.5 g/dL (13.0-18.0); Mean Corp Hgb Conc. 32.4 g/dL (33.0-37.0); Mean Corpuscular Hgb 29.7 pg (27.0-31.0); Mean Corpuscular Volume 91.6 fL (80.0-94.0); Mean Platelet Volume 12.4 fL (7.4-10.4); Platelet Count 194 10^3/uL (130-400); Red Blood Cell Count 2.86 10^6/uL (4.70-6.10); Red Cell Dist. Width 13.8 % (11.5-14.5); White Blood Cell Count 8.7 10^3/uL (4.8-10.8)
[2024-10-15 04:17] LABS: Blood Urea Nitrogen 34 mg/dl (9-20); Calcium 8.2 mg/dl (8.4-10.2); Carbon Dioxide 30 mmol/L (22-30); Chloride 102 mmol/L (98-107); Estimated Creatinine Clearance 93 ml/min; Glucose 212 mg/dl (70-99); Potassium 4.4 mmol/L (3.5-5.1); Sodium 134 mmol/L (135-145); eGFR > 60.00
--- NOTE | 2024-10-15 05:40 | PTCARENOTE ---
pt. expresses wanting to change code status to DNR. this RN reached out to house provider(s) Clive Estrada and Danica Watson, and CT PA Anna Traore. Pt understands that he will need to address his code status with master planner in AM. pt. is still full
code at this time.
[2024-10-15] MEDS: ZOFRAN 4 MG IV ×3 (06:44→15:40)
--- NOTE | 2024-10-15 09:09 | W.PN.HOSP.TC ---
Addendum entered and electronically signed by Catalino Teague MD 10/15/24 10:55:
Per RN
Patient agreeable to have bypass, CTS discussing
also OK to be switched back to full code
Psych evaluation requested as family concerned that patient might be depressed.
Original Note:
Today's Communication/Plan
-
diuresis on hold
bicarb pre Nephro
Check noro virus
Code changed to dnr/dni
declining Bypass, discussed with cards
Assessment / Plan
Assessment / Plan
TTE on 10/12
Normal left ventricular chamber size. Moderately reduced left ventricular
systolic function. Global hypokinesis. Left ventricular ejection fraction is
35% by volumetric assessment. Mild concentric left ventricular hypertrophy.
Normal right ventricular size and function.
Mild to moderate mitral regurgitation.
Possible bicuspid valve with adequate leaflet excursion. Aortic sclerosis
without stenosis.
Mild tricuspid regurgitation. Estimated pulmonary artery pressure of 41 mmHg,
assuming a right atrial pressure of 3 mmHg.
Small pericardial effusion without evidence of hemodynamic compromise. Pleural
effusion present.
LHC
1. Severe multivessel coronary artery disease as described with angiographically significant disease in the distal left main, ostial LAD, and ostial large D1.
2. iFR of LAD confirmed hemodynamic significance.
3. IVUS of the left main into LAD demonstrated severe disease in the distal left main and ostial LAD but precise MLA of the left main could not be obtained due to calcific shadowing.
4. iFR of the left circumflex demonstrates hemodynamic significance at the circumflex either from poorly angiographically appreciated disease in the ostial circumflex or significant disease in the distal left main.
5. Right heart catheterization demonstrates elevated biventricular filling pressures, severe postcapillary pulmonary hypertension, and preserved cardiac output and index.
6. There is no significant gradient on hemodynamic pullback across the aortic valve.

1. Systolic HF exacerbation
-xr showing pulm edema/pleural effusion. Probnp 18.9k.
-Compliant with home dose of lasix .
-IV lasix on hold
2. Multivessel CAD
-LHC showing multivessel CAD as above
-bypass recommended by esthetician, patient declining to have sx
3. Bilateral pleural effusion
- CT chest images reviewed
-s/p drainage of 900cc transudative fluid from right side
4. Acute hypoxic resp insufficiency -resolved
5. BELLO - Improving
-cr bumped up to 1.5
-hold further lasix
-getting post [facility] bicarb protocol due to renal dysfunction
6. Diarrhea
nausea/vomiting
-no abd pain/afebrile
-had 10 liquid stool, started last evening
-check norovirus
-no abx exposure, hold cdiff check
7. IDDM
- on Novolg 70/30 14 u in AM and 7 u pm . maintain on ISS
8. Hyperkalemia
-reason unclear
-to be started on low K diet post [facility]
-got dose of lokelma
9. Hyponatremia
-from HF related likely
-monitor
10. Chronic normocytic anemia
-reason unclear, hbg improved from last discharge
11. h/o substance use
-UDS neg.
DVT PPX - lovenox
DNR/DNI = patient requested to be dnr/dni today, does not want go through re-sucitation again. Have decision making capacity and discussed at lenght what it means to be DNR/DNI.
Total time spent : 52 mins
Discussed with cardiology
Anticipated Discharge: 24 - 48 hours
Subjective/Interval History
-
Date of Service: October 15, 2024
had episode of bradycardia 30-40s in night, woke up with sternal rub,
no chest compression/resuscitation measure required
having new diarrhea. episode of vomiting as well
Objective Data
-
Labs:
Laboratory Results
10/14/24 10/15/24
23:20 03:42
WBC 7.7 8.7
Hgb 8.7 L 8.5 L
Hct 27.7 L 26.2 L
Plt Count 185 194
PT 13.6
INR 1.01
APTT 29.8
Sodium 132 L 134 L
Potassium 5.3 H 4.4
Chloride 103 102
Carbon Dioxide 26 30
BUN 37 H 34 H
Creatinine 1.2 1.1
Glucose 199 H 212 H
Calcium 8.2 L 8.2 L
Total Bilirubin 0.9
AST 27
ALT 20
Alkaline Phosphatase 101
Vital Signs:
Vital Signs
Temp Pulse Resp BP Pulse Ox
98.6 F 84 16 151/92 98
10/15/24 01:59 10/15/24 01:59 10/15/24 01:59 10/14/24 22:26 10/15/24 01:59
I&O
10/14/24 10/15/24 10/16/24
06:59 06:59 06:59
Intake Total 480 / 480 300 / 300
Balance 480 / 480 300 / 300
Review of Systems
-
Respiratory: Reports No Symptoms
Cardiac: Reports No Symptoms
Abdomen/GI: Reports Nausea, Vomiting and Diarrhea
Physical Exam
-
General: Comfortable and Conversant; Negative Respiratory Distress
HEENT: Negative Oxygen
Respiratory: Clear to Auscultation
Cardiac: Regular Rhythm and S1/S2
GI: Soft, Nontender and Nondistended
Neuro: Awake, Alert, Oriented and AO x 3
Psych: Calm and Intact Judgement/Insight
[2024-10-15 09:36] LABS: Glucose - Point of Care 216 mg/dl (70-99)
[2024-10-15] MEDS: NOVOLOG FLEXPEN-LOW RESISTANCE SC ×2 (10:43→18:19)
[2024-10-15] MEDS: NOVOLOG MIX 70/30 FLEXPEN SC ×2 (10:44→18:27)
--- NOTE | 2024-10-15 10:54 | W.PN.NEPH.PH ---
Today's Communication / Plan
-
restart lasix
Assessment/Plan
-
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
at [facility] with a baseline creatinine of 1.2-1.4, presents to the ER status post unresponsive requiring CPR done by the family.
When EMS arrived the patient was awake and alert hemodynamically stable. His vitals were stable in the emergency room.
Renal consult for acute kidney injury with a creatinine 1.6 and admitting creatinine of 1.2. He was discharged a month ago with a creatinine of 1.5. He was getting diuresed since he has been here and per records he was 87 kg on admission and is
currently 80 kg.
Status post thoracentesis 900 cc
Plan for left heart catheterization tomorrow pending renal function.
IMP:
BELLO baseline cr 1.2-1.4
Sepsis
Non-ischemic Troponin Elevation
HFrEF-EF 30-35%; Moderate concentric LVH
Anemia
hyponatremia
Recent hospitalization for renal Failure, resistant hyperkalemia at [facility]-was on HD briefly
Meth abuse
Polysubstance Abuse
DM
HLD
Plan:
follow BMP
restart lasix iV
CT surgery eval
-
-
Date of Service: October 15, 2024
CC / HPI / ROS
-
Chief Complaint:
BELLO
History of Present Illness:
BELLO/Cr down to 1.1
BP stable high
no supplemental O2
s/p LHC/RHC 10/15, wedge 26, multivessel dz
Review of Systems:
no CP/SOB
Labs
-
Labs:
WBC 8.7 10^3/uL (4.8-10.8) 10/15/24 03:42
RBC 2.86 10^6/uL (4.70-6.10) L 10/15/24 03:42
Hgb 8.5 g/dL (13.0-18.0) L 10/15/24 03:42
Hct 26.2 % (39.0-52.0) L 10/15/24 03:42
Plt Count 194 10^3/uL (130-400) 10/15/24 03:42
Sodium 134 mmol/L (135-145) L 10/15/24 03:42
Potassium 4.4 mmol/L (3.5-5.1) 10/15/24 03:42
Chloride 102 mmol/L (98-107) 10/15/24 03:42
Carbon Dioxide 30 mmol/L (22-30) 10/15/24 03:42
BUN 34 mg/dl (9-20) H 10/15/24 03:42
Creatinine 1.1 mg/dL (0.7-1.3) 10/15/24 03:42
eGFR > 60.00 10/15/24 03:42
Glucose 212 mg/dl (70-99) H 10/15/24 03:42
Calcium 8.2 mg/dl (8.4-10.2) L 10/15/24 03:42
Phosphorus 4.8 mg/dl (2.5-4.5) H 10/12/24 07:25
Kda-O-Elumdmbvoay Pept 66735 pg/ml 10/11/24 21:44
Albumin 3.0 g/dl (3.5-5.0) L 10/14/24 23:20
Physical Exam
-
Vital Signs:
Vital Signs
Temp Pulse Resp BP Pulse Ox
98.6 F 84 16 151/92 98
10/15/24 01:59 10/15/24 01:59 10/15/24 01:59 10/14/24 22:26 10/15/24 01:59
Cardiovascular:: Regular rate and rhythm
Respiratory:: Bilateral: Rales
Lung Excursion:: Normal
Abdomen:: Nontender and Soft
Bowel Sounds:: Normal
Extremity Edema:: +3: Bilateral:
[2024-10-15] MEDS: LOW STRENGTH ASPIRIN PO (12:06)
[2024-10-15] MEDS: IMDUR (EXTENDED RELEASE) PO (12:06)
[2024-10-15] MEDS: APRESOLINE PO (12:06)
--- NOTE | 2024-10-15 12:42 | CONSULT.CT ---
Consultation
-
Date/Time Consultation Requested: 10/15/24
Date/Time Consultation Performed: 10/15/24
Requesting Provider: MAURI
Performing Provider: Kait Goetz PA-C for Dr Kyaw Zuniga
Reason for Consultation: CABG eval
Patient History
Physicians
Family Physician: Dorota Llamas
Outpatient Resident Services Director: none
Inpatient Resident Services Director: Yomi
History of Present Illness
Patient is a 43-year-old male with past medical history of hypertension, hyperlipidemia, insulin-dependent diabetes, cardiomyopathy, polysubstance abuse (clean x 7 months) who presented to the emergency department via EMS after an episode of feeling
lightheaded and dizzy and passing out at home. Family performed CPR, pulse was present on time of arrival of EMS. Patient denies any precipitating chest pain or shortness of breath. Patient was recently admitted to [facility] as
well as [facility] with influenza A, pneumonia and sepsis. At that time he was also treated for heart failure and was started on losartan where he had refractory hyperkalemia requiring urgent hemodialysis. At this time of admission he is
being treated for heart failure, and underwent a right thoracentesis for 900 cc of pleural fluid. Patient underwent left heart catheterization last evening which demonstrated two-vessel coronary artery disease with IFR positive LAD and left
circumflex. CT surgery is asked to evaluate for CABG.
Past Medical History
Past Medical History: Other
Hypertension
Hyperlipidemia
Insulin-dependent diabetes
cardiomyopathy with ejection fraction of 30 to 35%
Recent acute renal failure requiring urgent hemodialysis for refractory hyperkalemia (x1 HD tx)
Recent influenza A/pneumonia
Former tobacco abuse, 41-uolo-yupv history, quit 7 months ago
History of meth abuse, quit 7 months ago
anemia
Past Surgical History
perforated appendicitis s/p appendectomy 2013 ()
Family History
Family Medical History: Early CAD (Father and grandfather with hx [place] in their 40s)
Social History
Alcohol: Former
Drug: Former User (methamphetamines (sober x 7 months); denies IVDA)
Tobacco: Former Smoker (30 PYH, quit 7 months ago)
Allergies
Allergy/AdvReac Type Severity Reaction Status Date / Time
venom-honey bee Allergy Hives Verified 10/11/24 17:30
[bee venom (honey bee)]
Home Medications
�Medication �Instructions �Recorded �Confirmed �Type
furosemide 40 mg tablet (Lasix) 40 mg PO DAILY Fluid 09/22/24 09/22/24 History
Retention/Swelling
insulin aspar prt-insulin aspart 7 unit SC HS Diabetes 09/22/24 09/22/24 History
100 unit/mL (70-30) subcutaneous
soln (Novolog Mix 70-30 U-100
Insuln)
insulin aspar prt-insulin aspart 14 unit SC DAILY Diabetes 09/22/24 09/22/24 History
100 unit/mL (70-30) subcutaneous
soln (Novolog Mix 70-30 U-100
Insuln)
azithromycin 500 mg tablet 500 mg PO DAILY 3 days #3 tabs 09/26/24 Rx
(Zithromax)
carvedilol 12.5 mg tablet 12.5 mg PO BID #60 tabs 09/26/24 Rx
cefdinir 300 mg capsule 300 mg PO BID 3 days #6 caps 09/26/24 Rx
Review of Systems
-
History Source: Patient
General: Reports Fever and Chills
HEENT: Reports No Symptoms
Respiratory: Denies SOB, BURCIAGA or Cough
Cardiac: Reports Nausea and Edema; Denies Chest Pain
Abdomen/GI: Denies Abdominal Pain or Reflux
: Reports No Symptoms
Musculoskeletal: Reports No Symptoms
Skin: Reports No Symptoms
Neurological: Reports Syncope and Dizzy; Denies Seizures
Vascular: Denies Claudication
Physical Exam
Vital Signs
Temp 100.5 F H 10/15/24 11:54
Temp route: Oral 10/15/24 11:54
Pulse 84 10/15/24 01:59
Rhythm: Normal sinus rhythm 10/14/24 21:42
Resp Rate 16 10/15/24 11:54
Blood pressure 151/92 10/14/24 22:26
Blood pressure extremity used: Left upper arm 10/15/24 11:54
Position: Lying 10/15/24 11:54
MAP (cuff-Judy Monitor) 118 10/12/24 00:00
SaO2 89 10/15/24 11:54
Nasal Cannula flow liters per minute 6 10/15/24 01:59
Oxygen Mode of Delivery Room air 10/15/24 11:54
Acceptable pain level during hospitalization? 1 10/11/24 17:25
Can the patient verbally communicate their pain? Yes 10/14/24 21:42
Pain scale ratin 10/14/24 11:40
Actual Weight 79.1 kg 10/15/24 06:00
Body Mass Index (BMI) 23.7 10/15/24 06:00
Blood pressure after activity 169/97 10/15/24 01:59
Labs
10/15/24 03:42
10/15/24 03:42
PT 13.6 Sec (11.4-14.6) 10/14/24 23:20
APTT 29.8 Sec (23.4-35.0) 10/14/24 23:20
Troponin I 0.039 ng/ml H* 10/14/24 23:20
Iel-T-Nkeantvbstt Pept 60026 pg/ml 10/11/24 21:44
Diagnostic Studies
Procedure Date: 10/12/24
Echocardiography Report
CONCLUSIONS
Normal left ventricular chamber size. Moderately reduced left ventricular systolic function. Global hypokinesis. Left ventricular ejection fraction is 35% by volumetric assessment. Mild concentric left ventricular hypertrophy.
Normal right ventricular size and function.
Mild to moderate mitral regurgitation.
Possible bicuspid valve with adequate leaflet excursion. Aortic sclerosis without stenosis.
Mild tricuspid regurgitation. Estimated pulmonary artery pressure of 41 mmHg, assuming a right atrial pressure of 3 mmHg.
Small pericardial effusion without evidence of hemodynamic compromise. Pleural effusion present.
CARDIAC CATHETERIZATION REPORT
Date of Procedure: 10/14/2024
PROCEDURE(S)
1. right heart catheterization
2. left heart catheterization
3. coronary angiography
4. iFR LAD
5. iFR LCx
6. IVUS LM
CONCLUSIONS
1. Severe multivessel coronary artery disease as described with angiographically significant disease in the distal left main, ostial LAD, and ostial large D1.
2. iFR of LAD confirmed hemodynamic significance.
3. IVUS of the left main into LAD demonstrated severe disease in the distal left main and ostial LAD but precise MLA of the left main could not be obtained due to calcific shadowing.
4. iFR of the left circumflex demonstrates hemodynamic significance at the circumflex either from poorly angiographically appreciated disease in the ostial circumflex or significant disease in the distal left main.
5. Right heart catheterization demonstrates elevated biventricular filling pressures, severe postcapillary pulmonary hypertension, and preserved cardiac output and index.
6. There is no significant gradient on hemodynamic pullback across the aortic valve.
Exam
General: Well Developed, Well Nourished and No Apparent Distress
HEENT: Normocephalic and Anicteric
Neck: Trachea Midline; Negative Mass
Respiratory: Clear and Crackles (fine crackles, L base; R side diminished)
Cardiac: Regular Rhythm; Negative Murmur, Rub or Gallop
GI: Soft and Non Tender
Rectal: Deferred by Provider
Skin: Warm and Dry
Neuro: Nonfocal/Grossly Intact
Extremities: Lower Level Edema (trace b/l) and Pulses (2+ radial pulses; 2+ DP pulses)
Psych: Calm
Assessment / Plan
-
43-year-old male with episode of syncope, acute heart failure and significant right pleural effusion status post thoracentesis
Left heart catheterization revealed two-vessel coronary artery disease
cardiomyopathy with EF 30-35%
mild to moderate MR on TTE
-Dr. Zuniga and I discussed recommendation for CABG with the patient and his family who are at bedside, he is agreeable to proceeding with workup to include carotid ultrasound, left radial palmar arch study; CT PE study was completed in the ED as
well as chest x-ray, will order type and screen and hemoglobin A1c
-Patient is quite anemic, normocytic; pt unaware of any prior workup-- no hematemesis or dark stools; will add iron studies/b12/folate to labs
-infectious workup per primary team, pt nontoxic, wbc 8.7--but with fever today and subjective chills and nausea
-continue medical management per primary teams, CABG timing TBD
Data Reviewed
-
EKG: Report Reviewed by me
Reconciliation Analyst: Image Personally Visualized and interpreted and Report Reviewed by me
Echo: Report Reviewed by me
Radiology: Report Reviewed by me
CT Scan: Report Reviewed by me
Labs: Labs Reviewed by me
--- NOTE | 2024-10-15 12:45 | W.PN.CARDCBS ---
Addendum entered and electronically signed by Sergio Velarde DO 10/15/24 13:46:
I saw and examined the patient.
The Flight Director's note was reviewed and I agree with the note.
Comment:
Patient resting comfortably in chair. Noted nausea and vomiting this morning which was complicated by sinus bradycardia however no further episodes since the morning. He does note fever, chills with a temperature of 100.5 �F. Denies chest pain,
shortness of breath, lightheadedness, dizziness, or weakness. Notes lower extremity swelling as well.
GEN: No distress, awake, alert, oriented x3, sitting in chair
HEENT: supple, anicteric, mmm, eomi
LUNGS: Few scattered crackles at bases, no wheezes, on 2 L nasal cannula
CV: Reg, S1/S2, no murmur
ABD: soft, BS+, NT/ND
EXT: +1 bilateral pitting lower extremity edema
NEURO: Gross non-focal
SKIN: warm, pink, dry. No rash
A/P as below
IV diuresis with Lasix 40 mg IV daily, monitor intake and output, daily weights
Resume beta-sophy 3.125 mg twice daily as antianginal as well as BP control; monitor on telemetry
Patient febrile with subjective fever/chills, defer to primary service regarding possible infection
Psych evaluation
CT surgery evaluation for possible CABG
Original Note:
Today's Communication / Plan
-
Resume Lasix 40 mg IV daily and uptitrate pending response
Resume reduced dose of Coreg 3.125 mg twice a day
Patient now agreeable to have CABG
Psych eval ordered by primary care service
Continue to follow renal function and electrolytes
Impression / Plan
-
Primary Hydrostatic Tubing Tester: scheduled to see Dr. Becerra to establish care 11/2024
Assessment:
Presentation 10/11/2024 with syncopal episode, possibly hypoxia driven
Acute hypoxic respiratory insufficiency
Acute HFrEF, proBNP 84836
B/L pleural effusion
Ischemic cardiomyopathy, EF 30-35%
Multivessel coronary artery disease
History of trop elevation during prior admission
Admission to 09/22-09/26/24 for flu/PNA/elevated troponin
Admission x2 to [facility] 08/2024 for flu, hyperkalemia requiring transient HD
Diabetes, treated as type 1, diagnosed in mid 20s
Former tobacco use
Former ETOH abuse
Former meth abuse
ECHO 09/23/24: EF 30 to 35%, global hypokinesis, moderate concentric LVH, moderate MR, possible aortic valve with functional bicuspid or tricuspid with fused raphe, trace AR, mild TR, PAP 35 mmHg
Echo 10/12/2024: EF 35%, global hypokinesis, mild concentric LVH, mild to moderate MR, possible bicuspid valve, aortic sclerosis, mild TR, PAP 41 mmHg, small pericardial effusion, pleural effusion present
Cardiac catheterization 10/14/2024: LM: 50 to 60% distal stenosis. LAD 50 to 60% ostial to proximal stenosis, 30% mid stenosis after D1 D1 with focal severe ostial stenosis. Left circumflex: Small caliber vessel with LI. RCA LI. iFR of LAD
confirmed hemodynamic significance. Right heart catheterization demonstrates elevated biventricular filling pressures, severe postcapillary pulmonary hypertension, and preserved cardiac output and index. There is no significant gradient on
hemodynamic pullback across the aortic valve.
Plan:
Reviewed episode of patient having bradycardia heart rates in 30s to 40s overnight associated with hypoxia with pulse oximetry in 80s while asleep. Patient responded after sternal rub quickly and reported he wanted to sleep and have a BM. Heart
rate and blood pressure improved once patient was awake and oxygen was applied. Patient then proceeded to have bowel movement. He was provided IV fluids. Possible apneic event versus vagal episode although patient was sleeping.
Multivessel coronary artery disease found on cardiac catheterization
-Ongoing discussion regarding CABG. Patient initially declined however has since changed his mind and is agreeable to undergo surgery. CTS has been consulted
-LDL 83. Goal LDL less than 70 given diabetes. statin added 10/12
Ischemic cardiomyopathy, EF 35%, proBNP 13678.
-Coreg has been on hold for episode of bradycardia however seems to have resolved and blood pressure is elevated. Will resume Coreg at lower dose of 3.125 mg twice a day and uptitrate within next 24 hours if heart rate and blood pressure allow
-Continue GDMT with carvedilol, hydralazine, Imdur, ASA
-BELLO/CKD initially prevented initiation of JANIYA/ARB. Patient also noted to be hyperkalemic and required Lokelma. Will continue to follow creatinine with consideration of initiation of JANIYA/ARB following CABG
-Not SGLT2 candidate due to type 1 diabetes.
-Creatinine improved peaked 1.6, 1.1 currently. Resume IV diuresis with Lasix 40 mg daily
-Continue to monitor and trend renal function and electrolytes
-CHF education
Right pleural effusion
-Ongoing diuresis
-Status post R thoracentesis for 900cc on 10/12
Concern for depression given multiple recent hospitalizations and ongoing medical issues. Psychiatry has been consulted
-Records reviewed from [facility] as well as most recent admission at [facility] during which cardiology was not consulted. Patient with multiple recent admissions initially for chest pain, flu, CHF, then for hyperkalemia requiring transient HD, then
for pneumonia secondary to flu with elevated troponin, now back with syncopal episode and evidence of acute heart failure.
-Chest CT without PE or dissection, but did note bilateral pleural effusions and mild coronary artery calcifications
Patient's father at bedside, plan discussed with nursing, patient and patient's family
Progress Note - Hydrostatic Tubing Tester
Subjective
Date of Service: October 15, 2024
Reviewed events overnight where patient became bradycardic with heart rates in the 30s to 40s with brief episode of unresponsiveness but responded to sternal rub. Patient then proceeded to have bowel movement. Possible vagal reaction.
Patient also had an episode of nausea and vomiting this morning. He was given Zofran and seems to symptomatically improved.
Objective
Labs:
10/15/24 03:42
10/15/24 03:42
Labs
Hgb 8.5 g/dL (13.0-18.0) L 10/15/24 03:42
Hct 26.2 % (39.0-52.0) L 10/15/24 03:42
Plt Count 194 10^3/uL (130-400) 10/15/24 03:42
PT 13.6 Sec (11.4-14.6) 10/14/24 23:20
INR 1.01 10/14/24 23:20
APTT 29.8 Sec (23.4-35.0) 10/14/24 23:20
Sodium 134 mmol/L (135-145) L 10/15/24 03:42
Potassium 4.4 mmol/L (3.5-5.1) 10/15/24 03:42
BUN 34 mg/dl (9-20) H 10/15/24 03:42
Creatinine 1.1 mg/dL (0.7-1.3) 10/15/24 03:42
Glucose 212 mg/dl (70-99) H 10/15/24 03:42
Troponins
10/14/24
23:20
Troponin I 0.039 H*
Vital Signs and I&O:
Vital Signs
Temp Pulse Resp BP Pulse Ox
100.5 F H 84 16 151/92 89
10/15/24 11:54 10/15/24 01:59 10/15/24 11:54 10/14/24 22:26 10/15/24 11:54
Vital Signs
Temp Pulse Resp BP Pulse Ox
100.5 F H 84 16 151/92 89
10/15/24 11:54 10/15/24 01:59 10/15/24 11:54 10/14/24 22:26 10/15/24 11:54
Intake & Output
10/13/24 10/14/24 10/15/24 10/16/24
06:59 06:59 06:59 06:59
Intake Total 480 / 480 300 / 300
Output Total 2199 / 2199
Balance -2199 / -2199 480 / 480 300 / 300
Physical Exam
Physical Exam
GEN: No distress, awake, alert, oriented x3, sitting in chair
HEENT: supple, anicteric, mmm, eomi
LUNGS: Few scattered crackles at bases, no wheezes, on 2 L nasal cannula
CV: Reg, S1/S2, no murmur
ABD: soft, BS+, NT/ND
EXT: +1 bilateral pitting lower extremity edema
NEURO: Gross non-focal
SKIN: warm, pink, dry. No rash
[2024-10-15] MEDS: COREG 3.125 MG PO ×2 (13:21→19:19)
[2024-10-15] MEDS: LASIX 40 MG IV (13:21)
[2024-10-15 13:46] LABS: Glucose - Point of Care 234 mg/dl (70-99)
[2024-10-15] MEDS: NOVOLOG FLEXPEN-LOW RESISTANCE 2 UNITS SC (14:30)
--- NOTE | 2024-10-15 14:51 | CON.MD ---
Consultation - Medical
-
43 yr old M w/ PMH of multivessel CAD, IDDM & chronic normocytic anemia of unknown cause, presenting with systolic HF exacerbation. Pt was recommended CABG and initially declined, with concerns of depression contributing to this - psychiatry was
consulted to assess.
Pt seen & evaluated at bedside, chart reviewed.
To note, pt did later agree to CABG and on initiation of interview he did acknowledge that his initial denial was in the context of feeling overwhelmed and depressed. Pt reported that he had been arrested about 8 months ago and spent about 6 months
in [facility] retirement - NA meetings were presented weekly while he was there, and pt took advantage of this to get clean. Following his release from retirement, he went to rehab for a little more than a month and then returned home. Pt reports that upon
returning home, he started to feel lonely (lives far from family) and ruminating on guilt relating to his prior substance use. Denies having SI or thoughts of self harm, but rather that when he first was recommended a CABG, he felt like 'a burden to
my family' and did not want to put them through more difficulty. Pt reports however that he then spoke to his parents and brothers and opened up about how he felt, which resulted in the family having a much needed discussion.
Pt reports having close relationship with his family and when he first moved away (anhour away) he maintained close contact with them. However due to external circumstances and his increasing substance abuse, he began to isolate and pull away from
them. Pt reports that when he got home after rehab, he was now quite aware of this as he was now sober. He admits that he did not reach out to his family because of guilt and feeling like 'i should be able to do it myself', however after talking to
family while here, he realizes how much support he actually has. Pt reports that he plans to move back to the area after CABG, will stay with brother for now as he continues working on sobriety.
Pt does report prior hx of depression, with anhedonia, amotivation, low energy, isolation, negative ruminations. Denies hx of SI or self harm. Difficult to delineate extent from substance abuse (EtOH & methamphetamine), however pt identifies
depression as being difficult at times to manage. Has not previously tried significant therapy and does think this could be helpful,had started looking for therapist shortly prior to admission here.
FH: brother w/ hx of etoh abuse (sober now)
D&A: Hx of EtOH & methamphetamine abuse, 7-8 months sober currently, goes to NA meetings to maintain recovery
Unspecified depression
EtOH/methamphetamine abuse, in remission
MSE:calm,cooperative,pleasant,speech is normal rate & rhythm,,mood is OK though down, affect is appropriate & congruent to mood,, thought process is logical & goal directed, thought content: denies SI/HI/AVH/delusions. AAOx3. Memory not formally
tested. Insight fair. Judgement fair
No indication for medication at this time - pt not suicidal & has not tried much therapy in the past, would benefit from therapeutic approach on outpatient basis.
Will provide pt with resources for outpatient therapy in the area as he plans to relocate locally so as to be closer to family after CABG
--- NOTE | 2024-10-15 16:49 | PTCARENOTE ---
Addendum entered by Jennifer Reyes RN 10/15/24 17:22:
placed on 2l NC to maintain POX 93% ( without o2 - POX 88 )
Original Note:
assessment as documented, vss. no bradycardia today. continues with intermittent n/v relieved with zofran Denies CP.
[2024-10-15 17:40] LABS: Glucose - Point of Care 182 mg/dl (70-99)
[2024-10-15] MEDS: LIPITOR 40 MG PO (17:41)
[2024-10-15] MEDS: LOVENOX 40 MG SC (17:41)
[2024-10-15 17:43] LABS: Iron < 20 ug/dl (49-181)
[2024-10-15 17:44] LABS: Total Iron Binding Capacity 346 ug/dl (261-462)
[2024-10-15] MEDS: APRESOLINE 25 MG PO (19:20)
--- NOTE | 2024-10-15 20:45 | PTCARENOTE ---
pt. received at change of shift. pt OOB to chair, AOx3, tele reading NSR 80s-90s. no complaints of CP at this time. pt. reporting episodes of nausea, vomiting, and diarrhea throughout the day. this RN discussed POC with the pt, pt verbalizes
understanding. call ochoa within reach. continuing to monitor at this time.
[2024-10-15 21:19] LABS: Ferritin 52.9 ng/ml (17.9-464.0)
[2024-10-15 21:51] LABS: Vitamin B12 533 pg/ml (239-931)
[2024-10-15 22:05] LABS: Glucose - Point of Care 189 mg/dl (70-99)
[2024-10-15] MEDS: TYLENOL 650 MG PO (22:05)
[2024-10-16] VITALS (7 sets, daily range): BP systolic 109–134; BP diastolic 68–86; BMI 23.5
[2024-10-16 04:52] LABS: Hematocrit 28.5 % (39.0-52.0); Mean Corp Hgb Conc. 31.6 g/dL (33.0-37.0); Mean Corpuscular Hgb 29.3 pg (27.0-31.0); Mean Corpuscular Volume 92.8 fL (80.0-94.0); Mean Platelet Volume 12.9 fL (7.4-10.4); Platelet Count 144 10^3/uL (130-400); Red Blood Cell Count 3.07 10^6/uL (4.70-6.10); Red Cell Dist. Width 13.9 % (11.5-14.5); White Blood Cell Count 5.2 10^3/uL (4.8-10.8)
[2024-10-16 05:06] LABS: Blood Urea Nitrogen 37 mg/dl (9-20); Calcium 8.2 mg/dl (8.4-10.2); Carbon Dioxide 29 mmol/L (22-30); Chloride 101 mmol/L (98-107); Estimated Creatinine Clearance 60 ml/min; Glucose 149 mg/dl (70-99); Potassium 4.7 mmol/L (3.5-5.1); Sodium 136 mmol/L (135-145); eGFR 50.04
[2024-10-16 08:41] LABS: Glucose - Point of Care 187 mg/dl (70-99)
[2024-10-16] MEDS: LASIX IV (09:00)
[2024-10-16] MEDS: APRESOLINE 25 MG PO ×2 (09:10→20:06)
[2024-10-16] MEDS: LOW STRENGTH ASPIRIN 81 MG PO (09:10)
[2024-10-16] MEDS: IMDUR (EXTENDED RELEASE) 30 MG PO (09:10)
[2024-10-16] MEDS: COREG 3.125 MG PO ×2 (09:10→20:06)
[2024-10-16] MEDS: NOVOLOG FLEXPEN-LOW RESISTANCE 1 UNITS SC (09:11)
[2024-10-16] MEDS: NOVOLOG MIX 70/30 FLEXPEN 14 UNITS SC (09:11)
--- NOTE | 2024-10-16 09:52 | W.PN.NEPH.PH ---
Today's Communication / Plan
-
follow BMP
Assessment/Plan
-
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
at [facility] with a baseline creatinine of 1.2-1.4, presents to the ER status post unresponsive requiring CPR done by the family.
When EMS arrived the patient was awake and alert hemodynamically stable. His vitals were stable in the emergency room.
Renal consult for acute kidney injury with a creatinine 1.6 and admitting creatinine of 1.2. He was discharged a month ago with a creatinine of 1.5. He was getting diuresed since he has been here and per records he was 87 kg on admission and is
currently 80 kg.
Status post thoracentesis 900 cc
IMP:
BELLO baseline cr 1.2-1.4
Sepsis
Non-ischemic Troponin Elevation
HFrEF-EF 30-35%; Moderate concentric LVH
Anemia
hyponatremia
Recent hospitalization for renal Failure, resistant hyperkalemia at [facility]-was on HD briefly
Meth abuse
Polysubstance Abuse
DM
HLD
Plan:
follow BMP
repeat BMP later today
holding lasix
CT surgery eval for CABG in progress
-
-
Date of Service: October 16, 2024
CC / HPI / ROS
-
Chief Complaint:
BELLO
History of Present Illness:
BELLO/Cr up to 1.7
BP stable high
no supplemental O2
s/p LHC/RHC /, wedge 26, multivessel dz
Review of Systems:
no CP/SOB
Labs
-
Labs:
WBC 5.2 10^3/uL (4.8-10.8) 10/16/24 04:10
RBC 3.07 10^6/uL (4.70-6.10) L 10/16/24 04:10
Hgb 9.0 g/dL (13.0-18.0) L 10/16/24 04:10
Hct 28.5 % (39.0-52.0) L 10/16/24 04:10
Plt Count 144 10^3/uL (130-400) D 10/16/24 04:10
Sodium 136 mmol/L (135-145) 10/16/24 04:10
Potassium 4.7 mmol/L (3.5-5.1) 10/16/24 04:10
Chloride 101 mmol/L (98-107) 10/16/24 04:10
Carbon Dioxide 29 mmol/L (22-30) 10/16/24 04:10
BUN 37 mg/dl (9-20) H 10/16/24 04:10
Creatinine 1.7 mg/dL (0.7-1.3) H 10/16/24 04:10
eGFR 50.04 10/16/24 04:10
Glucose 149 mg/dl (70-99) H 10/16/24 04:10
Calcium 8.2 mg/dl (8.4-10.2) L 10/16/24 04:10
Phosphorus 4.8 mg/dl (2.5-4.5) H 10/12/24 07:25
Xmh-R-Vcfdosrcpwb Pept 48266 pg/ml 10/11/24 21:44
Albumin 3.0 g/dl (3.5-5.0) L 10/14/24 23:20
Physical Exam
-
Vital Signs:
Vital Signs
Temp Pulse Resp BP Pulse Ox
98.6 F 86 20 134/86 94
10/16/24 08:12 10/16/24 09:10 10/16/24 08:12 10/16/24 09:10 10/16/24 08:12
Cardiovascular:: Regular rate and rhythm
Respiratory:: Bilateral: Coarse
Lung Excursion:: Normal
Abdomen:: Nontender and Soft
Bowel Sounds:: Normal
Extremity Edema:: +1: Bilateral:
--- NOTE | 2024-10-16 10:20 | W.PN.CARDCBS ---
Today's Communication / Plan
-
Appreciate input by nephrology, continued IV diuresis
Beta-sophy therapy
Supportive care for norovirus
Tentative CABG
Impression / Plan
-
Primary Naturopathic Physician: scheduled to see Dr. Becerra to establish care 11/2024
Assessment:
Presentation 10/11/2024 with syncopal episode, possibly hypoxia driven
Acute hypoxic respiratory insufficiency
Acute HFrEF, proBNP 11384
B/L pleural effusion
Ischemic cardiomyopathy, EF 30-35%
Multivessel coronary artery disease
Positive norovirus, symptomatic
History of trop elevation during prior admission
Admission to 09/22-09/26/24 for flu/PNA/elevated troponin
Admission x2 to [facility] 08/2024 for flu, hyperkalemia requiring transient HD
Diabetes, treated as type 1, diagnosed in mid 20s
Former tobacco use
Former ETOH abuse
Former meth abuse
ECHO 09/23/24: EF 30 to 35%, global hypokinesis, moderate concentric LVH, moderate MR, possible aortic valve with functional bicuspid or tricuspid with fused raphe, trace AR, mild TR, PAP 35 mmHg
Echo 10/12/2024: EF 35%, global hypokinesis, mild concentric LVH, mild to moderate MR, possible bicuspid valve, aortic sclerosis, mild TR, PAP 41 mmHg, small pericardial effusion, pleural effusion present
Cardiac catheterization 10/14/2024: LM: 50 to 60% distal stenosis. LAD 50 to 60% ostial to proximal stenosis, 30% mid stenosis after D1 D1 with focal severe ostial stenosis. Left circumflex: Small caliber vessel with LI. RCA LI. iFR of LAD
confirmed hemodynamic significance. Right heart catheterization demonstrates elevated biventricular filling pressures, severe postcapillary pulmonary hypertension, and preserved cardiac output and index. There is no significant gradient on
hemodynamic pullback across the aortic valve.
Plan:
Reviewed episode of patient having bradycardia heart rates in 30s to 40s overnight associated with hypoxia with pulse oximetry in 80s while asleep. Patient responded after sternal rub quickly and reported he wanted to sleep and have a BM. Heart
rate and blood pressure improved once patient was awake and oxygen was applied. Patient then proceeded to have bowel movement. He was provided IV fluids. Possible apneic event versus vagal episode although patient was sleeping.
Multivessel coronary artery disease found on cardiac catheterization
-Ongoing discussion regarding CABG. Patient initially declined however has since changed his mind and is agreeable to undergo surgery. CTS has been consulted
-LDL 83. Goal LDL less than 70 given diabetes. statin added 10/12
Ischemic cardiomyopathy, EF 35%, proBNP 10032.
-Coreg has been on hold for episode of bradycardia however seems to have resolved and blood pressure is elevated. Continue Coreg at lower dose of 3.125 mg twice a day
-Continue GDMT with carvedilol, hydralazine, Imdur, ASA
-BELLO/CKD initially prevented initiation of JANIYA/ARB. Patient also noted to be hyperkalemic and required Lokelma. Will continue to follow creatinine with consideration of initiation of JANIYA/ARB following CABG
-Not SGLT2 candidate due to type 1 diabetes.
-Creatinine improved peaked 1.6, 1.1 currently. Resume IV diuresis with Lasix 40 mg daily; appreciate input by nephrology regarding fluctuating renal function
-Continue to monitor and trend renal function and electrolytes
-CHF education
Supportive care for norovirus, contact precautions
Right pleural effusion
-Ongoing diuresis
-Status post R thoracentesis for 900cc on 10/12
Concern for depression given multiple recent hospitalizations and ongoing medical issues. Psychiatry has been consulted
-Records reviewed from [facility] as well as most recent admission at [place] during which cardiology was not consulted. Patient with multiple recent admissions initially for chest pain, flu, CHF, then for hyperkalemia requiring transient HD, then
for pneumonia secondary to flu with elevated troponin, now back with syncopal episode and evidence of acute heart failure.
-Chest CT without PE or dissection, but did note bilateral pleural effusions and mild coronary artery calcifications
Patient's father at bedside, plan discussed with nursing, patient and patient's family
Progress Note - Naturopathic Physician
Subjective
Date of Service: October 16, 2024
Patient seen and examined's morning. No acute events overnight. Patient noted 1 episode of nausea corresponding with increased vagal tone and sinus bradycardia on monitor however no syncope or other symptoms. Telemetry shows sinus rhythm sinus
bradycardia; no pauses or AV block. Patient currently denies any chest pain, shortness of breath, palpitations, weakness. Still notes intermittent nausea. Patient tested positive for norovirus.
Objective
Labs:
10/16/24 04:10
Labs
Hgb 9.0 g/dL (13.0-18.0) L 10/16/24 04:10
Hct 28.5 % (39.0-52.0) L 10/16/24 04:10
Plt Count 144 10^3/uL (130-400) D 10/16/24 04:10
PT 13.6 Sec (11.4-14.6) 10/14/24 23:20
INR 1.01 10/14/24 23:20
APTT 29.8 Sec (23.4-35.0) 10/14/24 23:20
Sodium 136 mmol/L (135-145) 10/16/24 04:10
Potassium 4.7 mmol/L (3.5-5.1) 10/16/24 04:10
BUN 37 mg/dl (9-20) H 10/16/24 04:10
Creatinine 1.7 mg/dL (0.7-1.3) H 10/16/24 04:10
Glucose 149 mg/dl (70-99) H 10/16/24 04:10
Troponins
10/14/24
23:20
Troponin I 0.039 H*
Vital Signs and I&O:
Vital Signs
Temp Pulse Resp BP Pulse Ox
98.6 F 86 20 134/86 94
10/16/24 08:12 10/16/24 09:10 10/16/24 08:12 10/16/24 09:10 10/16/24 08:12
Vital Signs
Temp Pulse Resp BP Pulse Ox
98.6 F 86 20 134/86 94
10/16/24 08:12 10/16/24 09:10 10/16/24 08:12 10/16/24 09:10 10/16/24 08:12
Intake & Output
10/14/24 10/15/24 10/16/24 10/17/24
06:59 06:59 06:59 06:59
Intake Total 480 / 480 300 / 300
Balance 480 / 480 300 / 300
Physical Exam
Physical Exam
GEN: No distress, awake, alert, oriented x3, sitting in chair
HEENT: supple, anicteric, mmm, eomi
LUNGS: Few scattered crackles at bases, no wheezes, on 2 L nasal cannula
CV: Reg, S1/S2, no murmur
ABD: soft, BS+, NT/ND
EXT: +1 bilateral pitting lower extremity edema
NEURO: Gross non-focal
SKIN: warm, pink, dry. No rash
[2024-10-16 12:24] LABS: Glucose - Point of Care 69 mg/dl (70-99)
[2024-10-16] MEDS: NOVOLOG FLEXPEN-LOW RESISTANCE SC ×2 (12:26→17:38)
--- NOTE | 2024-10-16 12:31 | PTCARENOTE ---
Pt is AOx3, no complaints of pain or discomfort. No reports of vomiting or bowel movements today. Blood sugar pre lunch was 69, will rechceck per protocol. Independent OOB. VSS, SR on tele monitor. Call ochoa within reach.
[2024-10-16 12:56] LABS: Glucose - Point of Care 59 mg/dl (70-99)
[2024-10-16 13:15] LABS: Glucose - Point of Care 68 mg/dl (70-99)
[2024-10-16] MEDS: DEXTROSE 50% SYRINGE 12.5 GRAMS IV ×2 (13:23→22:51)
--- NOTE | 2024-10-16 13:35 | PTCARENOTE ---
Blood sugar check pre lunch was 69, drank juice and recheck was 59, drank more juice. RN spoke with Dr Teague, per Dr Teague give IV push D50. Recheck was 134. Will continue to monitor per protocol.
[2024-10-16 13:50] LABS: Glucose - Point of Care 134 mg/dl (70-99)
[2024-10-16] MEDS: FERRLECIT 110 MG IV (13:50)
--- NOTE | 2024-10-16 14:58 | W.PN.HOSP.TC ---
Today's Communication/Plan
-
see note
Assessment / Plan
Assessment / Plan
TTE on 10/12
Normal left ventricular chamber size. Moderately reduced left ventricular
systolic function. Global hypokinesis. Left ventricular ejection fraction is
35% by volumetric assessment. Mild concentric left ventricular hypertrophy.
Normal right ventricular size and function.
Mild to moderate mitral regurgitation.
Possible bicuspid valve with adequate leaflet excursion. Aortic sclerosis
without stenosis.
Mild tricuspid regurgitation. Estimated pulmonary artery pressure of 41 mmHg,
assuming a right atrial pressure of 3 mmHg.
Small pericardial effusion without evidence of hemodynamic compromise. Pleural
effusion present.
LHC
1. Severe multivessel coronary artery disease as described with angiographically significant disease in the distal left main, ostial LAD, and ostial large D1.
2. iFR of LAD confirmed hemodynamic significance.
3. IVUS of the left main into LAD demonstrated severe disease in the distal left main and ostial LAD but precise MLA of the left main could not be obtained due to calcific shadowing.
4. iFR of the left circumflex demonstrates hemodynamic significance at the circumflex either from poorly angiographically appreciated disease in the ostial circumflex or significant disease in the distal left main.
5. Right heart catheterization demonstrates elevated biventricular filling pressures, severe postcapillary pulmonary hypertension, and preserved cardiac output and index.
6. There is no significant gradient on hemodynamic pullback across the aortic valve.

1. Systolic HF exacerbation
Acute hypoxic resp insufficiency -resolved
-xr showing pulm edema/pleural effusion. Probnp 18.9k.
-Compliant with home dose of lasix .
-IV lasix on hold again with cr bump
2. Multivessel CAD
-LHC showing multivessel CAD as above
-CTS evaluated and patient and agreeable for bypass evaluation
3. Bilateral pleural effusion
- CT chest images reviewed
-s/p drainage of 900cc transudative fluid from right side
4. Noro-virus gastro-enteritis
-diarrhea is better today
-continue supportive care
5. BELLO - Improving
-cr bumped up to 1.7
-got post LHC bicarb IVF to prevent CHETNA
-hold further lasix
6. Iron def anemia
- Hbg at 9, MCV 92.8
- Ferritin 52 , undetectable serum iron
- ferllicit started
- GI evaluation requested
7. IDDM
Hypoglycemia
- on Novolg 70/30 14 u in AM and 7 u pm . maintain on ISS
- BG low today - start on
8. Hyperkalemia
-reason unclear
-to be started on low K diet post [facility]
-got dose of lokelma
9. Hyponatremia
-from HF related likely
-monitor
10. Chronic normocytic anemia
-reason unclear, hbg improved from last discharge
11. h/o substance use
-UDS neg.
DVT PPX - lovenox
DNR/DNI = patient requested to be dnr/dni today, does not want go through re-sucitation again. Have decision making capacity and discussed at lenght what it means to be DNR/DNI.
Discussed with CTS/cards/GI
Total time spent : 53 mins
Anticipated Discharge: > 48 hours
Subjective/Interval History
-
Date of Service: October 16, 2024
diarrhea is better
required to be placed on o2
no abd pain/nausea/vomiting
afebrile
Objective Data
-
Labs:
Laboratory Results
10/16/24 10/16/24
04:10 15:00
WBC 5.2
Hgb 9.0 L
Hct 28.5 L
Plt Count 144 D
Sodium 136 Pending
Potassium 4.7 Pending
Chloride 101 Pending
Carbon Dioxide 29 Pending
BUN 37 H Pending
Creatinine 1.7 H Pending
Glucose 149 H Pending
Calcium 8.2 L Pending
Vital Signs:
Vital Signs
Temp Pulse Resp BP Pulse Ox
97.8 F 77 18 134/86 95
10/16/24 14:49 10/16/24 11:45 10/16/24 14:49 10/16/24 09:10 10/16/24 14:49
I&O
10/15/24 10/16/24 10/17/24
06:59 06:59 06:59
Intake Total 300 / 300
Balance 300 / 300
Review of Systems
-
Respiratory: Reports No Symptoms
Cardiac: Reports No Symptoms
Abdomen/GI: Denies Abdominal Pain, Nausea, Vomiting or Diarrhea
Physical Exam
-
General: Comfortable and Conversant; Negative Respiratory Distress
HEENT: Negative Oxygen
Respiratory: Clear to Auscultation
Cardiac: Regular Rhythm and S1/S2
GI: Soft, Nontender and Nondistended
Neuro: Awake, Alert, Oriented and AO x 3
Psych: Calm and Intact Judgement/Insight
--- NOTE | 2024-10-16 15:14 | PTCARENOTE ---
Pt is AOx3, no complaints of pain or discomfort. Independent OOB. SR on tele monitor, VSS. BLood sugars monitored. Call ochoa within reach.
--- NOTE | 2024-10-16 15:43 | W.PN.UPDATE ---
Update Note
Progress Note Update
Pt sleeping in bed today, did not disturb. Provided nursing with packet of local outpatient resources to give to pt when he wakes up, did not disturb as no changes to tx needed at this time and pt cannot call until weekday regardless.
Will follow loosely/peripherally, please alert if more urgent need arises.
[2024-10-16 17:38] LABS: Glucose - Point of Care 117 mg/dl (70-99)
[2024-10-16] MEDS: NOVOLOG MIX 70/30 FLEXPEN 7 UNITS SC (17:38)
[2024-10-16] MEDS: LOVENOX 40 MG SC (17:38)
[2024-10-16] MEDS: LIPITOR 40 MG PO (17:38)
[2024-10-16 19:27] LABS: Glucose - Point of Care 111 mg/dl (70-99)
--- NOTE | 2024-10-16 21:43 | PTCARENOTE ---
assumed care at change of shift. pt seen and assessed in room. AOx3, tele reading NSR 70s-80s. No pain at this time. Placed on enhanced contact precautions for norovirus. LBM around 1pm today per patient, still reporting diarrhea. This RN discussed
POC. Pt. verbalizes understanding. Call ochoa within reach. Continuing to monitor at this time.
[2024-10-16 22:41] LABS: Blood Urea Nitrogen 36 mg/dl (9-20); Calcium 8.2 mg/dl (8.4-10.2); Carbon Dioxide 31 mmol/L (22-30); Chloride 99 mmol/L (98-107); Estimated Creatinine Clearance 73 ml/min; Glucose 50 mg/dl (70-99); Potassium 4.1 mmol/L (3.5-5.1); Sodium 132 mmol/L (135-145); eGFR > 60.00
--- NOTE | 2024-10-16 23:09 | PTCARENOTE ---
chemistry drawn on patient, blood glucose 50. house [employer] notified, pt asymptomatic. PRN dextrose given repeat glucose 134, continuing to check per protocol.
[2024-10-16 23:14] LABS: Glucose - Point of Care 134 mg/dl (70-99)
[2024-10-17] VITALS (7 sets, daily range): BP systolic 107–159; BP diastolic 67–107; BMI 23.5
[2024-10-17 01:37] LABS: Glucose - Point of Care 97 mg/dl (70-99)
[2024-10-17 06:01] LABS: Blood Urea Nitrogen 34 mg/dl (9-20); Calcium 8.7 mg/dl (8.4-10.2); Carbon Dioxide 29 mmol/L (22-30); Chloride 98 mmol/L (98-107); Estimated Creatinine Clearance 79 ml/min; Glucose 123 mg/dl (70-99); Potassium 4.3 mmol/L (3.5-5.1); Sodium 133 mmol/L (135-145); eGFR > 60.00
[2024-10-17 06:26] LABS: Hematocrit 27.1 % (39.0-52.0); Hemoglobin 8.9 g/dL (13.0-18.0); Mean Corp Hgb Conc. 32.8 g/dL (33.0-37.0); Mean Corpuscular Hgb 29.5 pg (27.0-31.0); Mean Corpuscular Volume 89.7 fL (80.0-94.0); Mean Platelet Volume 12.8 fL (7.4-10.4); Platelet Count 180 10^3/uL (130-400); Red Blood Cell Count 3.02 10^6/uL (4.70-6.10); Red Cell Dist. Width 13.7 % (11.5-14.5); White Blood Cell Count 4.1 10^3/uL (4.8-10.8)
--- NOTE | 2024-10-17 08:47 | CON.GI ---
Consultation
-
Date/Time Consultation Requested: 10/16/24
Date/Time Consultation Performed: 10/17/24
Requesting Provider: Ho Bae MD
Performing Provider: Tran Sims MD
Reason for Consultation: Anemia
Medical History
Chief Complaint / HPI
Chief Complaint: CHF exacerbation
History of Present Illness:
Patient is a 43-year-old male with a past medical history of hypertension, hyperlipidemia, IDDM with microvascular complications, polysubstance use, nonischemic cardiomyopathy, heart failure who was brought to ER on 10/12/2024 after he was found
unconsciousness and had CPR at home by his family. The patient was found hemodynamically stable and awake when EMS crew arrived to home. At ER admission, his BP was 156/90 with a pulse of 91and Ox sat was with 98% on 3 L. His EKG showed normal
sinus rhythm and no acute ST or T wave changes. His chest x-ray showed bilateral pleural effusions. CT angio was not significant for PE but was compliant with congestive heart failure. There were no significant change with ECHO result and BNP
results comparing to prior admission`s results. Patient underwent thoracocentesis and around 900 ml of transudative pleural fluid was removed from the right side on 10/13/2024. The patient was seen by cardiology team to assess the patient for acute
decompensated heart failure decided to have heart catheterization to evaluate possible obstructive CAD. The patient underwent heart catheterization on 10/14/2024 which showed multilevel coronary artery disease. Cardiac surgery team evaluated the
patient for CABG and ordered further studies, planning the surgery possibly on 10/19/24.
Off note, the patient required an urgent temporary dialysis due hyperkalemia in his prior admission and had elevated creatinine level at this time.
Past Medical History
Past Medical History: CHF, HTN, Hypercholesterolemia, IDDM and Other (polysubstance use)
Past Surgical History: None
Social History
Tobacco: Former Smoker
Alcohol: Other (Stopped drinking 15 years ago(reports drinking around for 15 years))
Drug: Marijuana ( THC use at high school-not currently), Cocaine (Reports cocaine use for 5 years. Stopped using 10-12 years ago) and Other (Methamphetamine use-however reports using for 10 years-stopped 8 months ago-U tox is negative)
Personal: Single
Living: Other (Reports being in halfway a few months ago and states they are about for 6 months)
Family History
Family History: Reviewed & Not Pertinent
Allergies / Home Medications
Allergy/AdvReac Type Severity Reaction Status Date / Time
venom-honey bee Allergy Hives Verified 10/11/24 17:30
[bee venom (honey bee)]
�Medication �Instructions �Recorded
furosemide 40 mg tablet (Lasix) 40 mg PO DAILY Fluid 09/22/24
Retention/Swelling
insulin aspar prt-insulin aspart 7 unit SC HS Diabetes 09/22/24
100 unit/mL (70-30) subcutaneous
soln (Novolog Mix 70-30 U-100
Insuln)
insulin aspar prt-insulin aspart 14 unit SC DAILY Diabetes 09/22/24
100 unit/mL (70-30) subcutaneous
soln (Novolog Mix 70-30 U-100
Insuln)
carvedilol 12.5 mg tablet 12.5 mg PO BID #60 tabs 09/26/24
Review of Systems
-
History Source: Patient
Constitutional: Reports No Symptoms and Fatigue
EENT: Reports Other (Tooth decay)
Respiratory: Reports Other (Denies shortness of breath)
Cardiac: Reports No Symptoms
Abdomen/GI: Reports No Symptoms
: Reports No Symptoms
Musculoskeletal: Reports No Symptoms
Skin: Reports No Symptoms
Neurological: Reports No Symptoms
Vital Signs
Temp Pulse Resp BP Pulse Ox
97.5 F 76 16 159/97 98
10/17/24 04:15 10/17/24 08:45 10/17/24 08:45 10/17/24 08:45 10/17/24 08:45
Physical Exam
Exam
General: Well Developed, Well Nourished and No Apparent Distress
HEENT: Normocephalic and Anicteric
Respiratory: Other (Few crackles on lung bases-no wheezing)
Cardiac: S1/S2 and Regular Rhythm
GI: Soft, Non Tender, Non Distended and Other (Diarrhea-loose stools)
Rectal: Brown
Musculoskeletal: Edema (1+ bilateral pitting)
Skin: Warm
Neuro: Awake, Alert, Oriented and AO x 3
Psych: Calm
Results
WBC 4.1 10^3/uL (4.8-10.8) L 10/17/24 04:55
Hgb 8.9 g/dL (13.0-18.0) L 10/17/24 04:55
Hct 27.1 % (39.0-52.0) L 10/17/24 04:55
MCV 89.7 fL (80.0-94.0) 10/17/24 04:55
Plt Count 180 10^3/uL (130-400) D 10/17/24 04:55
Absolute Neuts (auto) 5.8 10^3/uL (1.4-6.5) 10/14/24 23:20
PT 13.6 Sec (11.4-14.6) 10/14/24 23:20
INR 1.01 10/14/24 23:20
APTT 29.8 Sec (23.4-35.0) 10/14/24 23:20
Sodium 133 mmol/L (135-145) L 10/17/24 04:55
Potassium 4.3 mmol/L (3.5-5.1) 10/17/24 04:55
Chloride 98 mmol/L (98-107) 10/17/24 04:55
Carbon Dioxide 29 mmol/L (22-30) 10/17/24 04:55
BUN 34 mg/dl (9-20) H 10/17/24 04:55
Creatinine 1.3 mg/dL (0.7-1.3) 10/17/24 04:55
Calcium 8.7 mg/dl (8.4-10.2) 10/17/24 04:55
Total Bilirubin 0.9 mg/dl (0.2-1.3) 10/14/24 23:20
AST 27 U/L (17-59) 10/14/24 23:20
ALT 20 U/L (0-50) 10/14/24 23:20
Alkaline Phosphatase 101 U/L (38-126) 10/14/24 23:20
Diagnostic Image Results:
ABD us ON 09/25/24 FINDINGS:
LIVER: The liver appears normal in size. There is mild diffusely increased echogenicity throughout the liver. There are no focal hepatic lesions identified. The main portal vein is patent and demonstrates hepatopetal flow on color duplex evaluation.
The hepatic veins appear patent and demonstrate hepatofugal flow on color duplex evaluation.
BILE DUCTS: There is no intra or extrahepatic biliary dilatation. The common bile duct measures 2.4 mm in diameter.
GALLBLADDER: There is mobile sludge in the gallbladder lumen. There is no shadowing gallbladder calculus, abnormal gallbladder wall thickening, gallbladder distention, or pericholecystic fluid. The anterior gallbladder wall measures 2.3 mm in
thickness. The sonographic Chairez's sign was reportedly negative.
RETROPERITONEUM: The imaged portions of the pancreatic head, neck, and body appear normal. The pancreas is incompletely visualized secondary to adjacent bowel gas. The imaged portions of the intra-abdominal inferior vena cava appear normal. There is
no evidence for abdominal aortic aneurysm.
SPLEEN: The spleen is normal in size measuring 10.4 cm in length.
KIDNEYS: The right kidney measures 12.6 x 4.7 x 4.8 cm in size. The left kidney measures 12.7 x 5.7 x 4.8 cm in size. There is no hydronephrosis in either kidney.
There is no sonographic evidence for abdominal ascites. There are small bilateral pleural effusions.
IMPRESSION:
1. Mild diffusely increased echogenicity throughout the liver suggesting mild diffuse liver disease.
2. No sonographic evidence for biliary dilatation or acute cholecystitis.
3. Gallbladder sludge.
4. Small bilateral pleural effusions.
Prior GI Procedures:
EGD:
Colonoscopy:
Assessment / Plan
-
Assessment
Mr Shaffer is a 43-year-old male with a PMH of hypertension, hyperlipidemia, IDDM with microvascular complications, polysubstance use, nonischemic cardiomyopathy, heart failure who was brought to ER on 10/12/2024 after he was found unconsciousness and
had CPR at home by his family. At admission, his chest x-ray showed bilateral pleural effusions and CT angio was compliant with congestive heart failure. The patient underwent thoracocentesis and around 900 ml of transudative pleural fluid was
removed from the right side on 10/13/2024. The patient was seen by cardiology team due acute decompensated heart failure decided to had a heart catheterization on 10/14/2024 which showed multilevel coronary artery disease. Cardiac surgery team
evaluated the patient for CABG and ordered further studies, planning the surgery possibly on 10/19/24. The GI team was consulted to assess the patient's anemia. The patient lab results was significant for low of iron level <20 L and hemoglobin 8.9
(likely stable for last month). His other lab results were found normal including ferritin level to 52, TIBC 346, RDW 13.7, vitamin B to 533, folate to 13. The patient did not have any colonoscopy/ endoscopy prior. He admitted having
brown-colored loose stool since last week after having norovirus and reports some improvement with his diarrhea today. Reports having 1-2 loose stools and denies any dark-colored stool, abdominal pain, heartburn, dysphagia. But the patient
endorses coffee colored emesis for 2 times since admission with a very small amount and reports he had it before for a few times since last year. Reports having acid reflux in the past for 1 year possibly related with his methamphetamine use and
recovered from his symptoms about 6 months ago after he stopped using meth. He denied any recent use of cocaine or other stimulants/substances. Denies NSAI/anticogulant use, endorses using Tums.
Off note, the patient required an urgent temporary dialysis due hyperkalemia in his prior admission and had elevated creatinine level at this time
Impression
Acute systolic heart failure exacerbation
Multilevel CAD
Gastroenteritis likely due norovirus
Chronic normocytic anemia likely multiple factorial
Possible hematemesis
Bilateral pleural effusion
BELLO
IDDM
Hyperkalemia/hyponatremia
# Gastroenteritis secondary to norovirus
-Positive norovirus on stool with active GI symptoms
-Having brown-colored loose stool 1-2 times daily
-Improving, per patient's report
-Follow-up
#Chronic normocytic anemia likely multiple factorial
-Low of iron level <20 L , Iron saturation could not be calculated -reports bad nutrition during halfway time
-hemoglobin 8.9 (likely stable for last month)
-Normal levels of ferritin to 52, TIBC 346, RDW 13.7, vitamin B to 533, folate to 13
-EPO and reticulocyte was ordered
-History of kidney problem
-No signs of active GI bleeding/hx of hematemesis
-Follow up CBC
-Colonoscopy will be planned after patient is recovered from norovirus
#Possible Hematemesis likely due esophagitis vs duodenal ulcer vs AVMs vs neoplasm
-A possible five episodes of hematemesis
-History of acid reflux with substance use/ reports no symptoms since last 6 months
-Abd US on 09/25/24 Mild diffusely increased echogenicity throughout the liver suggesting mild diffuse liver disease with normal LFTs
-Start PPI 40 mg oral
-No active signs of upper GI bleeding
-Planning to proceed with EGD after patient is more stable in regards his gastroenteritis
The patient is planning to undergo CABG and will require anticoagulant treatment. His EGD/colonoscopy plan is discussed with his hospitalist.
Thanks Dr Starks having me involved in this patient`s care.
Plan
-
-
Thank you for consultation and allowing me to participate in the patient's care. Please call the rewards consultant GI physician during the after hours with any questions or concerns.
[2024-10-17 08:49] LABS: Glucose - Point of Care 140 mg/dl (70-99)
[2024-10-17] MEDS: IMDUR (EXTENDED RELEASE) 30 MG PO (08:49)
[2024-10-17] MEDS: LOW STRENGTH ASPIRIN 81 MG PO (08:49)
[2024-10-17] MEDS: COREG 3.125 MG PO (08:49)
[2024-10-17] MEDS: NOVOLOG MIX 70/30 FLEXPEN 14 UNITS SC (08:49)
[2024-10-17] MEDS: APRESOLINE 25 MG PO ×2 (08:49→20:22)
[2024-10-17] MEDS: NOVOLOG FLEXPEN-LOW RESISTANCE SC ×3 (08:49→17:23)
--- NOTE | 2024-10-17 08:58 | W.PN.NEPH.PH ---
Today's Communication / Plan
-
Observe
Holding Lasix for now, weight stable
Add fluid restriction 50 ounces daily for hyponatremia
Assessment/Plan
-
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
at [facility] with a baseline creatinine of 1.2-1.4, presents to the ER status post unresponsive requiring CPR done by the family.
When EMS arrived the patient was awake and alert hemodynamically stable. His vitals were stable in the emergency room.
Renal consult for acute kidney injury with a creatinine 1.6 and admitting creatinine of 1.2. He was discharged a month ago with a creatinine of 1.5. He was getting diuresed since he has been here and per records he was 87 kg on admission and is
currently 80 kg.
Status post thoracentesis 900 cc
IMP:
BELLO baseline cr 1.2-1.4
Sepsis
Non-ischemic Troponin Elevation
HFrEF-EF 30-35%; Moderate concentric LVH
Anemia
hyponatremia
Recent hospitalization for renal Failure, resistant hyperkalemia at [facility]-was on HD briefly
Meth abuse
Polysubstance Abuse
DM
HLD
Plan:
follow BMP
creatinije at baseline 1.3
[address] surgery eval for CABG in progress
-
-
Date of Service: October 17, 2024
CC / HPI / ROS
-
Chief Complaint:
BELLO
History of Present Illness:
BELLO/Cr down to 1.3
BP stable high
no supplemental O2
Sodium a little better up to 133
s/p LHC/RHC 10/15, wedge 26, multivessel dz
Review of Systems:
no CP/SOB
Weight stable
Labs
-
Labs:
WBC 4.1 10^3/uL (4.8-10.8) L 10/17/24 04:55
RBC 3.02 10^6/uL (4.70-6.10) L 10/17/24 04:55
Hgb 8.9 g/dL (13.0-18.0) L 10/17/24 04:55
Hct 27.1 % (39.0-52.0) L 10/17/24 04:55
Plt Count 180 10^3/uL (130-400) D 10/17/24 04:55
Sodium 133 mmol/L (135-145) L 10/17/24 04:55
Potassium 4.3 mmol/L (3.5-5.1) 10/17/24 04:55
Chloride 98 mmol/L (98-107) 10/17/24 04:55
Carbon Dioxide 29 mmol/L (22-30) 10/17/24 04:55
BUN 34 mg/dl (9-20) H 10/17/24 04:55
Creatinine 1.3 mg/dL (0.7-1.3) 10/17/24 04:55
eGFR > 60.00 10/17/24 04:55
Glucose 123 mg/dl (70-99) H 10/17/24 04:55
Calcium 8.7 mg/dl (8.4-10.2) 10/17/24 04:55
Phosphorus 4.8 mg/dl (2.5-4.5) H 10/12/24 07:25
Cru-L-Xeabpgyxemz Pept 96284 pg/ml 10/11/24 21:44
Albumin 3.0 g/dl (3.5-5.0) L 10/14/24 23:20
Physical Exam
-
Vital Signs:
Vital Signs
Temp Pulse Resp BP Pulse Ox
97.5 F 76 16 159/97 98
10/17/24 04:15 10/17/24 08:49 10/17/24 08:45 10/17/24 08:49 10/17/24 08:45
Cardiovascular:: Regular rate and rhythm
Respiratory:: Bilateral: Coarse
Lung Excursion:: Normal
Abdomen:: Nontender and Soft
Bowel Sounds:: Normal
Extremity Edema:: +1: Bilateral:
--- NOTE | 2024-10-17 10:00 | PTCARENOTE ---
Assumed care of patient at 0645. Assessment completed and documented in shift assessment on worklist.
Patient is pleasant and AAOX4, SR on Monitor, intermittently wearing 2L NC (mostly at HS, questionable MAHNAZ). Ambulatory in room, still having frequent loose stool. Pending clearances for CVOR later this week. Stool Heme Tested, Neg for Occult Stool.
[2024-10-17 12:12] LABS: Glucose - Point of Care 154 mg/dl (70-99)
--- NOTE | 2024-10-17 14:38 | CM ---
Chart reviewed. Patient currently lives with his brother in a 2 [address], 1 RAJEEV, [address] Patient waiting on CT Surgery evaluation. Plan is for the patient to return home with his brother. CM to follow
[2024-10-17] MEDS: FERRLECIT 110 MG IV (14:59)
--- NOTE | 2024-10-17 15:43 | W.PN.HOSP.TC ---
Addendum entered and electronically signed by Tunde Bolivar MD 10/17/24 16:26:
correction; now patient reverts to Full code
Original Note:
Today's Communication/Plan
-
await GI/Cards/CTS recs on timing of GI workup/CABG
Assessment / Plan
Assessment / Plan
TTE on 10/12
Normal left ventricular chamber size. Moderately reduced left ventricular
systolic function. Global hypokinesis. Left ventricular ejection fraction is
35% by volumetric assessment. Mild concentric left ventricular hypertrophy.
Normal right ventricular size and function.
Mild to moderate mitral regurgitation.
Possible bicuspid valve with adequate leaflet excursion. Aortic sclerosis
without stenosis.
Mild tricuspid regurgitation. Estimated pulmonary artery pressure of 41 mmHg,
assuming a right atrial pressure of 3 mmHg.
Small pericardial effusion without evidence of hemodynamic compromise. Pleural
effusion present.
LHC
1. Severe multivessel coronary artery disease as described with angiographically significant disease in the distal left main, ostial LAD, and ostial large D1.
2. iFR of LAD confirmed hemodynamic significance.
3. IVUS of the left main into LAD demonstrated severe disease in the distal left main and ostial LAD but precise MLA of the left main could not be obtained due to calcific shadowing.
4. iFR of the left circumflex demonstrates hemodynamic significance at the circumflex either from poorly angiographically appreciated disease in the ostial circumflex or significant disease in the distal left main.
5. Right heart catheterization demonstrates elevated biventricular filling pressures, severe postcapillary pulmonary hypertension, and preserved cardiac output and index.
6. There is no significant gradient on hemodynamic pullback across the aortic valve.
Assessment:
Acute hypoxic respiratory insufficiency - resolved
Acute systolic CHF
- s/p IV Lasix course
- follow Cards recs
Multivessel CAD
- LHC showing multivessel CAD as above
- CTS evaluated and patient and agreeable for bypass evaluation; pre-operative testing ongoing
Bilateral pleural effusion
- CT chest images reviewed
- s/p drainage of 900cc transudative fluid from right side
Noro-virus gastro-enteritis
- diarrhea is better today
- continue supportive care
BELLO - Improving
- cr bumped up to 1.7; now down to 1.3
- monitor BMP
Iron def anemia
- Hbg at 9, MCV 92.8
- Ferritin 52 , undetectable serum iron
- continue IV Iron
- GI following
IDDM
- continue basal/bolus
Hyperkalemia
- s/p Lokelma
- continue low K diet
Hyponatremia
- from HF related likely
- monitor
Chronic normocytic anemia
- reason unclear, hbg improved from last discharge
h/o substance use
- UDS neg
DVT ppx: Lovenox
Code: DNR/DNI per discussions with Dr. Teague on 10/16. Ordered updated.
Anticipated Discharge: > 48 hours
Subjective/Interval History
-
Date of Service: October 17, 2024
ongoing diarrhea from norovirus
Objective Data
-
Labs:
Laboratory Results
10/17/24
04:55
WBC 4.1 L
Hgb 8.9 L
Hct 27.1 L
Plt Count 180 D
Sodium 133 L
Potassium 4.3
Chloride 98
Carbon Dioxide 29
BUN 34 H
Creatinine 1.3
Glucose 123 H
Calcium 8.7
Vital Signs:
Vital Signs
Temp Pulse Resp BP Pulse Ox
98.2 F 77 18 133/83 94
10/17/24 14:59 10/17/24 15:15 10/17/24 14:59 10/17/24 14:59 10/17/24 14:59
Physical Exam
-
General: No Apparent Distress
HEENT: Normocephalic and Atraumatic
Respiratory: Negative Wheezes
Cardiac: Regular Rhythm and S1/S2
GI: Soft and Nontender
Genito-urinary: No Costovertebral Tender
Neuro: AO x 3
Hematologic / Lymphatic: No Lymphadenopathy
Psych: Calm
Data Reviewed
-
Total Time Spent with Patient (in minutes): 41
Labs: Labs Reviewed by me
--- NOTE | 2024-10-17 16:37 | W.PN.CARDCBS ---
Today's Communication / Plan
-
Increase carvedilol
Await decision regarding timing of surgery given norovirus
Impression / Plan
-
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 Becerra to establish care 11/2024
Assessment:
Presentation 10/11/2024 with syncopal episode, possibly hypoxia driven
Acute hypoxic respiratory insufficiency
Acute HFrEF, proBNP 86002
B/L pleural effusion
Ischemic cardiomyopathy, EF 30-35%
Multivessel coronary artery disease
Positive norovirus, symptomatic
History of trop elevation during prior admission
Admission to 09/22-09/26/24 for flu/PNA/elevated troponin
Admission x2 to [facility] 08/2024 for flu, hyperkalemia requiring transient HD
Diabetes, treated as type 1, diagnosed in mid 20s
Former tobacco use
Former ETOH abuse
Former meth abuse
ECHO 09/23/24: EF 30 to 35%, global hypokinesis, moderate concentric LVH, moderate MR, possible aortic valve with functional bicuspid or tricuspid with fused raphe, trace AR, mild TR, PAP 35 mmHg
Echo 10/12/2024: EF 35%, global hypokinesis, mild concentric LVH, mild to moderate MR, possible bicuspid valve, aortic sclerosis, mild TR, PAP 41 mmHg, small pericardial effusion, pleural effusion present
Cardiac catheterization 10/14/2024: LM: 50 to 60% distal stenosis. LAD 50 to 60% ostial to proximal stenosis, 30% mid stenosis after D1 D1 with focal severe ostial stenosis. Left circumflex: Small caliber vessel with LI. RCA LI. iFR of LAD
confirmed hemodynamic significance. Right heart catheterization demonstrates elevated biventricular filling pressures, severe postcapillary pulmonary hypertension, and preserved cardiac output and index. There is no significant gradient on
hemodynamic pullback across the aortic valve.
Plan:
Despite his coronary anatomy and LV dysfunction with heart failure on admission he seems stable from a cardiac standpoint.
At present, biggest issue is delay in surgery related to norovirus.
Heart rate is relatively rapid, blood pressure is acceptable, will double carvedilol to 6.25 twice daily.
Await decision regarding timing of surgery.
Progress Note - Rotary Engraver
Subjective
Date of Service: October 17, 2024: Patient with mild tightness in chest earlier, diarrhea is improving
Medications: Enoxaparin, insulin, aspirin 81 mg a day, atorvastatin 40 mg a day, hydralazine 25 mg twice daily, isosorbide mononitrate 30 mg a day, carvedilol 3.125 twice daily, iron, pantoprazole, Lasix on hold
133/83, pulse 77, respiratory rate 18, afebrile, lungs are clear, head neck exam unremarkable, soft systolic murmur at base abdomen benign not much edema
White count 4.1, hemoglobin 8.9, platelets 180, BUN/creatinine 34 and 1.3, peak creatinine had been 1.6
Objective
Labs:
10/17/24 04:55
10/17/24 04:55
Labs
Hgb 8.9 g/dL (13.0-18.0) L 10/17/24 04:55
Hct 27.1 % (39.0-52.0) L 10/17/24 04:55
Plt Count 180 10^3/uL (130-400) D 10/17/24 04:55
PT 13.6 Sec (11.4-14.6) 10/14/24 23:20
INR 1.01 10/14/24 23:20
APTT 29.8 Sec (23.4-35.0) 10/14/24 23:20
Sodium 133 mmol/L (135-145) L 10/17/24 04:55
Potassium 4.3 mmol/L (3.5-5.1) 10/17/24 04:55
BUN 34 mg/dl (9-20) H 10/17/24 04:55
Creatinine 1.3 mg/dL (0.7-1.3) 10/17/24 04:55
Glucose 123 mg/dl (70-99) H 10/17/24 04:55
Troponins
10/14/24
23:20
Troponin I 0.039 H*
Vital Signs and I&O:
Vital Signs
Temp Pulse Resp BP Pulse Ox
36.8 C 77 18 133/83 94
10/17/24 14:59 10/17/24 15:15 10/17/24 14:59 10/17/24 14:59 10/17/24 14:59
Vital Signs
Temp Pulse Resp BP Pulse Ox
36.8 C 77 18 133/83 94
10/17/24 14:59 10/17/24 15:15 10/17/24 14:59 10/17/24 14:59 10/17/24 14:59
Intake & Output
10/15/24 10/16/24 10/17/24 10/18/24
07:59 07:59 07:59 07:59
Intake Total 300 / 300
Balance 300 / 300
Physical Exam
Physical Exam
See above
[2024-10-17 17:23] LABS: Glucose - Point of Care 104 mg/dl (70-99)
[2024-10-17] MEDS: LIPITOR 40 MG PO (17:54)
[2024-10-17] MEDS: LOVENOX 40 MG SC (17:54)
[2024-10-17] MEDS: NOVOLOG MIX 70/30 FLEXPEN 7 UNITS SC (17:55)
[2024-10-17] MEDS: COREG 6.25 MG PO (20:23)
[2024-10-17 21:33] LABS: Glucose - Point of Care 113 mg/dl (70-99)
[2024-10-18 04:15] VITALS: BP 148/82
[2024-10-18 04:58] LABS: % Basophils 0.2 % (0-2); % Eosinophils 1.6 % (0-6); % Immature Granulocytes 0.4 % (0-0.5); % Monocytes 10.5 % (1.7-9.3); % Neutrophils 71.3 % (42.2-75.2); Absolute Eosinophils 0.1 10^3/uL (0-0.7); Absolute Lymphocytes 0.8 10^3/uL (1.2-3.4); Absolute Monocytes 0.5 10^3/uL (0.1-0.6); Absolute Neutrophils 3.5 10^3/uL (1.4-6.5); Blood Urea Nitrogen 29 mg/dl (9-20); Calcium 8.3 mg/dl (8.4-10.2); Carbon Dioxide 22 mmol/L (22-30); Chloride 101 mmol/L (98-107); Estimated Creatinine Clearance 85 ml/min; Glucose 108 mg/dl (70-99); Hematocrit 27.2 % (39.0-52.0); Hemoglobin 8.8 g/dL (13.0-18.0); Mean Corp Hgb Conc. 32.4 g/dL (33.0-37.0); Mean Corpuscular Hgb 28.9 pg (27.0-31.0); Mean Corpuscular Volume 89.2 fL (80.0-94.0); Mean Platelet Volume 12.6 fL (7.4-10.4); Nucleated Red Blood Cells % 0 % (-); Platelet Count 174 10^3/uL (130-400); Potassium 3.9 mmol/L (3.5-5.1); Red Blood Cell Count 3.05 10^6/uL (4.70-6.10); Red Cell Dist. Width 13.3 % (11.5-14.5); Reticulocyte Count 1.6 % (0.4-2.8); Sodium 132 mmol/L (135-145); White Blood Cell Count 4.9 10^3/uL (4.8-10.8); eGFR > 60.00
[2024-10-18 05:04] VITALS: BMI 22.5
[2024-10-18 08:22] VITALS: BP 150/98
[2024-10-18] MEDS: LOW STRENGTH ASPIRIN 81 MG PO (08:52)
[2024-10-18] MEDS: NOVOLOG FLEXPEN-LOW RESISTANCE SC ×2 (08:52→12:32)
[2024-10-18] MEDS: IMDUR (EXTENDED RELEASE) 30 MG PO (08:52)
[2024-10-18] MEDS: COREG 6.25 MG PO (08:52)
[2024-10-18] MEDS: PROTONIX 40 MG PO (08:52)
[2024-10-18] MEDS: APRESOLINE 25 MG PO (08:52)
--- NOTE | 2024-10-18 09:00 | PTCARENOTE ---
Assumed care of patient. VSS, Patient states no diarrhea overnight. No nausea or vomiting. Call light in reach. No complaints at this time.
--- NOTE | 2024-10-18 09:10 | W.PN.UPDATE ---
Update Note
Progress Note Update
Patient continues to recover from norovirus. Cardiac surgery will be delayed. Plan at this point will be to follow-up in office with Dr. Kyaw Zuniga. Appointment set up and card given to patient.
Appointment also entered into discharge
Plan for discharge to home
[2024-10-18] MEDS: NOVOLOG MIX 70/30 FLEXPEN 14 UNITS SC (10:03)
--- NOTE | 2024-10-18 10:42 | W.PN.NEPH.PH ---
Today's Communication / Plan
-
No changes creatinine at baseline
Assessment/Plan
-
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
at [facility] with a baseline creatinine of 1.2-1.4, presents to the ER status post unresponsive requiring CPR done by the family.
When EMS arrived the patient was awake and alert hemodynamically stable. His vitals were stable in the emergency room.
Renal consult for acute kidney injury with a creatinine 1.6 and admitting creatinine of 1.2. He was discharged a month ago with a creatinine of 1.5. He was getting diuresed since he has been here and per records he was 87 kg on admission and is
currently 80 kg.
Status post thoracentesis 900 cc
IMP:
BELLO baseline cr 1.2-1.4
Sepsis
Non-ischemic Troponin Elevation
HFrEF-EF 30-35%; Moderate concentric LVH
Anemia
hyponatremia
Recent hospitalization for renal Failure, resistant hyperkalemia at [facility]-was on HD briefly
Meth abuse
Polysubstance Abuse
DM
HLD
Plan:
follow BMP
creatinine at baseline 1.2
can restart lasix once weight gains recur
CT surgery eval for CABG in progress delayed given norovirus, will be done at later date after discharge per review of CT surgery note
-
-
Date of Service: October 18, 2024
CC / HPI / ROS
-
Chief Complaint:
BELLO
History of Present Illness:
BELLO/Cr down to 1.2
BP stable
no supplemental O2
Sodium a little better up to 132
s/p LHC/RHC 10/15, wedge 26, multivessel dz
Review of Systems:
no CP/SOB
Weight down
Labs
-
Labs:
WBC 4.9 10^3/uL (4.8-10.8) 10/18/24 04:21
RBC 3.05 10^6/uL (4.70-6.10) L 10/18/24 04:21
Hgb 8.8 g/dL (13.0-18.0) L 10/18/24 04:21
Hct 27.2 % (39.0-52.0) L 10/18/24 04:21
Plt Count 174 10^3/uL (130-400) 10/18/24 04:21
Sodium 132 mmol/L (135-145) L 10/18/24 04:21
Potassium 3.9 mmol/L (3.5-5.1) 10/18/24 04:21
Chloride 101 mmol/L (98-107) 10/18/24 04:21
Carbon Dioxide 22 mmol/L (22-30) 10/18/24 04:21
BUN 29 mg/dl (9-20) H 10/18/24 04:21
Creatinine 1.2 mg/dL (0.7-1.3) 10/18/24 04:21
eGFR > 60.00 10/18/24 04:21
Glucose 108 mg/dl (70-99) H 10/18/24 04:21
Calcium 8.3 mg/dl (8.4-10.2) L 10/18/24 04:21
Phosphorus 4.8 mg/dl (2.5-4.5) H 10/12/24 07:25
Drk-B-Qzyrltzaqit Pept 17384 pg/ml 10/11/24 21:44
Albumin 3.0 g/dl (3.5-5.0) L 10/14/24 23:20
Physical Exam
-
Vital Signs:
Vital Signs
Temp Pulse Resp BP Pulse Ox
98.6 F 81 15 150/98 96
10/18/24 08:25 10/18/24 08:25 10/18/24 08:25 10/18/24 08:22 10/18/24 08:25
Cardiovascular:: Regular rate and rhythm
Respiratory:: Bilateral: Coarse
Lung Excursion:: Normal
Abdomen:: Nontender and Soft
Bowel Sounds:: Normal
Extremity Edema:: +1: Bilateral:
--- NOTE | 2024-10-18 11:35 | W.PN.GI.CBS2 ---
Today's Communication / Plan
-
-Seems the primary team is planning to discharge the patient
-Patient endoscopy/colonoscopy is planning to be scheduled as outpatient setting
Assessment / Plan
-
Assessment
Mr Shaffer is a 43-year-old male with a PMH of hypertension, hyperlipidemia, IDDM with microvascular complications, polysubstance use, nonischemic cardiomyopathy, heart failure who was brought to ER on 10/12/2024 after he was found unconsciousness and
had CPR at home by his family. At admission, his chest x-ray showed bilateral pleural effusions and CT angio was compliant with congestive heart failure. The patient underwent thoracocentesis and around 900 ml of transudative pleural fluid was
removed from the right side on 10/13/2024. The patient was seen by cardiology team due acute decompensated heart failure decided to had a heart catheterization on 10/14/2024 which showed multilevel coronary artery disease. Cardiac surgery team
evaluated the patient for CABG and ordered further studies, planning the surgery possibly on 10/19/24. The GI team was consulted to assess the patient's anemia. The patient lab results was significant for low of iron level <20 L and hemoglobin 8.9
(likely stable for last month). His other lab results were found normal including ferritin level to 52, TIBC 346, RDW 13.7, vitamin B to 533, folate to 13. The patient did not have any colonoscopy/ endoscopy prior. He admitted having
brown-colored loose stool since last week after having norovirus and reports some improvement with his diarrhea since last 2 days. The patient denied any dark-colored stool, abdominal pain, heartburn, dysphagia. But the patient endorsed coffee
colored emesis for 2 times since admission with a very small amount and reported he had it before for a few times since last year.Additionally he reported having acid reflux in the past for 1 year possibly related with his methamphetamine use and
recovered from his symptoms about 6 months ago after he stopped using meth. He denied any recent use of cocaine or other stimulants/substances. Denies NSAI/anticogulant use, endorses using Tums.
The patient is planning to have a CABG at outpatient setting. He was planned to have an endoscopy and colonoscopy after his discharge at outpatient setting.
Off note, the patient required an urgent temporary dialysis due hyperkalemia in his prior admission and had elevated creatinine level at this time
Impression
Acute systolic heart failure exacerbation
Multilevel CAD
Gastroenteritis likely due norovirus
Chronic normocytic anemia likely multiple factorial
Possible hematemesis
Bilateral pleural effusion
BELLO
IDDM
Hyperkalemia/hyponatremia
# Gastroenteritis secondary to norovirus
-Positive norovirus on stool with active GI symptoms
-Having brown-colored loose stool but improving for last 2 days
-Improving, per patient's report
-Follow-up
#Chronic normocytic anemia likely multiple factorial
-Low of iron level <20 L , Iron saturation could not be calculated -reports bad nutrition during fpc time
-hemoglobin 8.9 (likely stable for last month)
-Normal levels of ferritin to 52, TIBC 346, RDW 13.7, vitamin B to 533, folate to 13
-EPO and reticulocyte was ordered
-History of kidney problem
-No signs of active GI bleeding/hx of hematemesis
-Follow up CBC
-Colonoscopy will be planned after patient is recovered from norovirus at outpatient setting
#Possible Hematemesis likely due esophagitis vs duodenal ulcer vs AVMs vs neoplasm
-A possible five episodes of hematemesis
-History of acid reflux with substance use/ reports no symptoms since last 6 months
-Abd US on 09/25/24 Mild diffusely increased echogenicity throughout the liver suggesting mild diffuse liver disease with normal LFTs
-Start PPI 40 mg oral
-No active signs of upper GI bleeding
-Planning to proceed with EGD at outpatient setting
The patient is planning to undergo CABG and will require anticoagulant treatment. His EGD/colonoscopy is planned to be done at outpatient setting .
Thanks Dr Starks having me involved in this patient`s care.
Plan
Subjective
Subjective
Date of Service: October 18, 2024
Patient reports his diarrhea is improving and he had some soft stool today. Denies vomiting, nausea, fever, chills.
Objective
Data Reviewed
Laboratory Data:
Laboratory Results
10/18/24 04:21
10/18/24 04:21
Laboratory Results
PT 13.6 Sec (11.4-14.6) 10/14/24 23:20
INR 1.01 10/14/24 23:20
APTT 29.8 Sec (23.4-35.0) 10/14/24 23:20
Phosphorus 4.8 mg/dl (2.5-4.5) H 10/12/24 07:25
Magnesium 1.8 mg/dl (1.6-2.3) 10/14/24 23:20
Total Bilirubin 0.9 mg/dl (0.2-1.3) 10/14/24 23:20
AST 27 U/L (17-59) 10/14/24 23:20
ALT 20 U/L (0-50) 10/14/24 23:20
Alkaline Phosphatase 101 U/L (38-126) 10/14/24 23:20
Vital Signs and I&O:
Vital Signs
Temp Pulse Resp BP Pulse Ox
98.6 F 81 15 150/98 96
10/18/24 08:25 10/18/24 08:25 10/18/24 08:25 10/18/24 08:22 10/18/24 08:25
Physical Exam
Physical Exam
HEENT: Anicteric and Moist mucous membranes
Cardiology: Normal Sinus Rhythm, S1 and S2
Pulmonary: Clear
GI: Soft, Non Distended and Non Tender
Extremities: No Edema
Neuro: Non Focal
[2024-10-18 12:29] LABS: Glucose - Point of Care 137 mg/dl (70-99)
--- NOTE | 2024-10-18 13:10 | W.PN.HOSP.TC ---
Today's Communication/Plan
-
dc home
Assessment / Plan
Assessment / Plan
TTE on 10/12
Normal left ventricular chamber size. Moderately reduced left ventricular
systolic function. Global hypokinesis. Left ventricular ejection fraction is
35% by volumetric assessment. Mild concentric left ventricular hypertrophy.
Normal right ventricular size and function.
Mild to moderate mitral regurgitation.
Possible bicuspid valve with adequate leaflet excursion. Aortic sclerosis
without stenosis.
Mild tricuspid regurgitation. Estimated pulmonary artery pressure of 41 mmHg,
assuming a right atrial pressure of 3 mmHg.
Small pericardial effusion without evidence of hemodynamic compromise. Pleural
effusion present.
LHC
1. Severe multivessel coronary artery disease as described with angiographically significant disease in the distal left main, ostial LAD, and ostial large D1.
2. iFR of LAD confirmed hemodynamic significance.
3. IVUS of the left main into LAD demonstrated severe disease in the distal left main and ostial LAD but precise MLA of the left main could not be obtained due to calcific shadowing.
4. iFR of the left circumflex demonstrates hemodynamic significance at the circumflex either from poorly angiographically appreciated disease in the ostial circumflex or significant disease in the distal left main.
5. Right heart catheterization demonstrates elevated biventricular filling pressures, severe postcapillary pulmonary hypertension, and preserved cardiac output and index.
6. There is no significant gradient on hemodynamic pullback across the aortic valve.
Assessment:
Acute hypoxic respiratory insufficiency - resolved
Acute systolic CHF
- s/p IV Lasix course; resume Lasix at home
- follow Cards recs
Multivessel CAD
- [facility] showing multivessel CAD as above
- CTS evaluated and patient and agreeable for bypass evaluation; pre-operative testing ongoing. OP f/u
Bilateral pleural effusion
- CT chest images reviewed
- s/p drainage of 900cc transudative fluid from right side
Noro-virus gastro-enteritis
- diarrhea is better today
- continue supportive care
BELLO - Improving
- cr bumped up to 1.7; now down to 1.3
- monitor BMP
Iron def anemia
- Hbg at 9, MCV 92.8
- Ferritin 52 , undetectable serum iron
- continue IV Iron
- GI following for scopes outpatient
IDDM
- continue basal/bolus
Hyperkalemia
- s/p Lokelma
- continue low K diet
Hyponatremia
- from HF related likely
- monitor
Chronic normocytic anemia
- reason unclear, hbg improved from last discharge
h/o substance use
- UDS neg
DVT ppx: Lovenox
Code: Full
More than 30 minutes spent in discharge including
Final examination of the patient
Summarizing hospital stay
Instructions for continuing care to all relevant caregivers
Preparation of discharge records, prescriptions, and referral forms
Total time spent (in minutes): 45
Anticipated Discharge: Today
Subjective/Interval History
-
Date of Service: October 18, 2024
diarrhea improved
Objective Data
-
Labs:
Laboratory Results
10/18/24
04:21
WBC 4.9
Hgb 8.8 L
Hct 27.2 L
Plt Count 174
Sodium 132 L
Potassium 3.9
Chloride 101
Carbon Dioxide 22
BUN 29 H
Creatinine 1.2
Glucose 108 H
Calcium 8.3 L
Vital Signs:
Vital Signs
Temp Pulse Resp BP Pulse Ox
98.6 F 81 15 150/98 96
10/18/24 08:25 10/18/24 08:25 10/18/24 08:25 10/18/24 08:22 10/18/24 08:25
Physical Exam
-
General: No Apparent Distress
HEENT: Normocephalic and Atraumatic
Respiratory: Negative Wheezes
Cardiac: Regular Rhythm and S1/S2
GI: Soft and Nontender
Genito-urinary: No Costovertebral Tender
Musculoskeletal: No Edema
Neuro: AO x 3
Hematologic / Lymphatic: No Lymphadenopathy
Psych: Calm
Data Reviewed
-
Total Time Spent with Patient (in minutes): 45
Labs: Labs Reviewed by me
--- NOTE | 2024-10-18 13:17 | W.DS.TRANS ---
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
-
Discharge Instructions:
Sleep Apnea Risk Low
Discharge Diagnosis/Procedures Acute CHF. Norovirus infection. Cath 10/14
showing triple vessel disease
Diet Diabetic, Carb Controlled
Activity As tolerated
Instructions: *DCA Heart Failure Instructions
Stand-Alone Forms: DC Instructions- Cath/EP Lab
Changes to Home Medications: No
Discharge Medications:
DC Medications w/original date entered in [facility]
insulin aspar prt-insulin aspart 100 unit/mL (70-30) subcutaneous soln (Novolog Mix 70-30 U-100 Insuln) 7 unit SC HS Diabetes 09/22/24
insulin aspar prt-insulin aspart 100 unit/mL (70-30) subcutaneous soln (Novolog Mix 70-30 U-100 Insuln) 14 unit SC DAILY Diabetes 09/22/24
aspirin 81 mg chewable tablet 81 mg PO DAILY #100 tabs 10/18/24
atorvastatin 40 mg tablet 40 mg PO QPM #30 tabs 10/18/24
carvedilol 6.25 mg tablet 6.25 mg PO BID #60 tabs 10/18/24
ferrous sulfate 325 mg (65 mg iron) tablet 325 mg PO DAILY #30 tabs 10/18/24
furosemide 40 mg tablet (Lasix) 40 mg PO DAILY Fluid Retention/Swelling #30 tabs 10/18/24
hydralazine 25 mg tablet 25 mg PO BID #60 tabs 10/18/24
isosorbide mononitrate 30 mg tablet,extended release 24 hr 30 mg PO DAILY #30 tabs 10/18/24
pantoprazole 40 mg tablet,delayed release 40 mg PO DAILY #30 tabs 10/18/24
Home Medication Changes
Pending Results: No
Total time spent discharging patient (in min): 45
--- NOTE | 2024-10-18 13:17 | W.PN.CARDCBS ---
Today's Communication / Plan
-
Cont higher dose Coreg
Cardiology f/u arranged
27 min face to face and coordination of care
Impression / Plan
-
Primary Director Emergency Department: scheduled to see Dr. Becerra to establish care 11/2024
Impression:
Presentation with syncopal episode, possibly hypoxia driven 10/11/2024
Recent admission to [facility] for flu, hyperkalemia requiring transient HD 08/2024
Recent admission to for flu/PNA/elevated troponin09/22-09/26/24
Acute hypoxic respiratory insufficiency
B/L pleural effusion
Acute HFrEF
Ischemic cardiomyopathy, EF 30-35% by echo 10/12/24
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
History of trop elevation during prior admission
Diabetes, treated as type 1, diagnosed in mid 20s
Former tobacco use
Former ETOH abuse
Former meth abuse
Norovirus 09/2024
ECHO 09/23/24: EF 30 to 35%, global hypokinesis, moderate concentric LVH, moderate MR, possible aortic valve with functional bicuspid or tricuspid with fused raphe, trace AR, mild TR, PAP 35 mmHg
Echo 10/12/2024: EF 35%, global hypokinesis, mild concentric LVH, mild to moderate MR, possible bicuspid valve, aortic sclerosis, mild TR, PAP 41 mmHg, small pericardial effusion, pleural effusion present
Cardiac catheterization 10/14/2024: LM: 50 to 60% distal stenosis. LAD 50 to 60% ostial to proximal stenosis, 30% mid stenosis after D1 D1 with focal severe ostial stenosis. Left circumflex: Small caliber vessel with LI. RCA LI. iFR of LAD
confirmed hemodynamic significance. Right heart catheterization demonstrates elevated biventricular filling pressures, severe postcapillary pulmonary hypertension, and preserved cardiac output and index. There is no significant gradient on
hemodynamic pullback across the aortic valve.
Plan:
-Patient with newly diagnosed MV CAD this admission and he has been recommended CABG. In the interim patient started with symptomatic Norovirus and tested positive on 10/15/24. At about the same time patient with iron def anemia and GI consulted.
-GI consult and progress note reviewed 10/18/24. Plan is for an outpatient upper endoscopy and colonoscopy in the next 1-2 weeks as an outpatient.
-Pending GI work-up patient will then see CT surgery team in the office on 11/08/24 and finalize plans for CABG.
-Outpatient dose of Coreg 12.5 mg BID was held earlier this admission due to bradycardia, but HR has improved and was rapid 10/17/24 so Coreg dose increased to 6.25 mg BID and he should be d/c'd to home on this dose as well
-Patient with hyperkalemia on admission and had hyperkalemia requiring transient HD during his [facility] admissions in 08/2024 so will not try to add JANIYA/ARB/ARNI or MRA.
-New to Imdur ER 30 mg daily and hydralazine 25 mg BID
-Patient and his mother were updated in the room by me 10/18/24 and will follow up as an outpatient
HPI: Patient is a 43 yo M with PMH of type 1 diabetes, former tobacco and meth abuse quit 7 months ago, and former alcohol abuse quit years ago who reports has had 3 recent admissions (2 in August [address] [facility] and most recently to
09/22-09/26/24) for flu. He reports he received tamiflu multiple times. By review of records from [facility], he was initially admitted to [facility] with CP, flu, and found to be in CHF. Was started on Lasix, Coreg, valsartan. He then presented back to
[facility] due to hypokalemia on outpatient blood work, valsartan was stopped and he required temporary dialysis. He reports he had an echo during that admission which he states was 'normal', however then during admission to 09/22-09/26/24 had echo
09/23 with EF 30-35% and mod MR. He was scheduled to see cardiology as new patient 12/07/24. He presented back to yesterday as he was helping his brother and nephew with something. With standing and walking he felt lightheaded and sat down and
states the next thing he remembers is waking up. He states his family could not feel a pulse at one point and started brief CPR. Was noted to be hypoxic on arrival to ER into 80s and proBNP 18723. Cardiology consulted for evaluation of CHF.
Progress Note - Director Emergency Department
Subjective
Date of Service: October 18, 2024
Feels well
Objective
Labs:
10/18/24 04:21
10/18/24 04:21
Labs
Hgb 8.8 g/dL (13.0-18.0) L 10/18/24 04:21
Hct 27.2 % (39.0-52.0) L 10/18/24 04:21
Plt Count 174 10^3/uL (130-400) 10/18/24 04:21
PT 13.6 Sec (11.4-14.6) 10/14/24 23:20
INR 1.01 10/14/24 23:20
APTT 29.8 Sec (23.4-35.0) 10/14/24 23:20
Sodium 132 mmol/L (135-145) L 10/18/24 04:21
Potassium 3.9 mmol/L (3.5-5.1) 10/18/24 04:21
BUN 29 mg/dl (9-20) H 10/18/24 04:21
Creatinine 1.2 mg/dL (0.7-1.3) 10/18/24 04:21
Glucose 108 mg/dl (70-99) H 10/18/24 04:21
Vital Signs and I&O:
Vital Signs
Temp Pulse Resp BP Pulse Ox
98.6 F 81 15 150/98 96
10/18/24 08:25 10/18/24 08:25 10/18/24 08:25 10/18/24 08:22 10/18/24 08:25
Vital Signs
Temp Pulse Resp BP Pulse Ox
98.6 F 81 15 150/98 96
10/18/24 08:25 10/18/24 08:25 10/18/24 08:25 10/18/24 08:22 10/18/24 08:25
Physical Exam
Physical Exam
GEN: AAO x3
HEENT: EOMI
LUNGS: RA. No audible wheeze
CV: SR on tele.
EXT: Trace B/L LE edema
NEURO: Gross non-focal
SKIN: No rash
[2024-10-18 13:44] VITALS: BP 117/74
[2024-10-19 09:36] LABS: Erythropoietin (EPO) 19 mU/mL (4-27)
--- NOTE | 2024-10-19 10:36 | W.HF.CON ---
Heart Failure
- LV Function
Left ventricular function study result: LV Ejection fraction </= 35%
Ejection Fraction Percentage: 35
- ARNI
Patient already on ARNI: No
Heart Failure ARNI Contraindication: Acute Renal Failure
- ACEI/ARB
Patient already on ACEI/ARB: No
Heart Failure ACEI/ARB Contraindication: Acute Renal Failure
- Beta John
Patient already on Evidence Based Beta John: Yes
- Mineralocorticord Receptor Antagonist
Patient already on MRA: No
Heart Failure MRA Contraindication: Acute Renal Insufficiency
- SGLT-2 Inhibitor
Patient already on SGLT-2 Inhibitor: No
Heart Failure SGLT-2 Inhibitor Contraindication: Type 1 Diabetes
- Hydralazine & Isosorbide Dinitrate
Patient already on Hydralazine & Isosorbide Dinitrate: Yes
== END 2024-10-18 14:26 | disposition home or self-care (01) | DRG 286 ==
LOC: IVU 00:25
PROVIDERS: Hospitalist; Physician Assistant; Radiology Vascular & Interventional Radiology; Specialist; Student in an Organized Health Care Education/Training Program; Urology; ADMITTING PHYSICIAN Internal Medicine; ATTENDING PHYSICIAN Internal Medicine; EMERGENCY PHYSICIAN Student in an Organized Health Care Education/Training Program; PRIMARYCARE PHYSICIAN Family Medicine
PROC: 0W993ZZ Drainage of Right Pleural Cavity, Percutaneous Approach (ICD-10-PCS; 2024-10-12)
PROC: 4A023N8 Measurement of Cardiac Sampling and Pressure, Bilateral, Percutaneous Approach (ICD-10-PCS; 2024-10-14)
PROC: B240ZZ3 Ultrasonography of Single Coronary Artery, Intravascular (ICD-10-PCS; 2024-10-14)
PROC: 4A033BC Measurement of Arterial Pressure, Coronary, Percutaneous Approach (ICD-10-PCS; 2024-10-14)
PROC: B2111ZZ Fluoroscopy of Multiple Coronary Arteries using Low Osmolar Contrast (ICD-10-PCS; 2024-10-14)
DX: I13.0 Hypertensive heart and chronic kidney disease with heart failure and stage 1 through stage 4 chronic kidney disease, or unspecified chronic kidney disease (principal); A41.9 Sepsis, unspecified organism; I50.23 Acute on chronic systolic (congestive) heart failure; A08.11 Acute gastroenteropathy due to Norwalk agent; N17.9 Acute kidney failure, unspecified; E87.1 Hypo-osmolality and hyponatremia; I31.39 Other pericardial effusion (noninflammatory); J91.8 Pleural effusion in other conditions classified elsewhere; N18.9 Chronic kidney disease, unspecified; E10.22 Type 1 diabetes mellitus with diabetic chronic kidney disease; Z79.4 Long term (current) use of insulin; R09.02 Hypoxemia; I25.10 Atherosclerotic heart disease of native coronary artery without angina pectoris; D50.9 Iron deficiency anemia, unspecified; E10.65 Type 1 diabetes mellitus with hyperglycemia; E87.6 Hypokalemia; I27.29 Other secondary pulmonary hypertension; F15.11 Other stimulant abuse, in remission; Z87.891 Personal history of nicotine dependence; I70.0 Atherosclerosis of aorta; F10.11 Alcohol abuse, in remission; E87.5 Hyperkalemia; E78.00 Pure hypercholesterolemia, unspecified; F32.A Depression, unspecified; I34.0 Nonrheumatic mitral (valve) insufficiency; Z79.899 Other long term (current) drug therapy; Z82.49 Family history of ischemic heart disease and other diseases of the circulatory system; Z87.01 Personal history of pneumonia (recurrent); Z90.49 Acquired absence of other specified parts of digestive tract; Z83.3 Family history of diabetes mellitus
CPT/HCPCS: 88305; 93308; 32555; 71045; 71046; 71275; 76937; 80048; 80053; 80061; 80306; 82607; 82668; 82728; 82746; 82945; 82962; 83540; 83550; 83615; 83735; 83880; 84100; 84132; 84157; 84443; 84484; 85025; 85027; 85045; 85347; 85610; 85730; 86850; 86900; 86901; 87015; 87070; 87102; 87116; 87205; 87798; 88112; 89051; 92978; 93005; 93321; 93325; 93460; 93799; 93880; 93923; 93931; 96374; 96375; 99152; 99153; 99285; C1753; C1769; C1894; J2916; Q9967

== ENCOUNTER → 2024-10-24 12:06 | Outpatient (REF) | payer OTHER, SELFPAY | LOC: HWRAD 12:06 | PROVIDERS: ATTENDING PHYSICIAN Internal Medicine Cardiovascular Disease | DX: R06.02 Shortness of breath (principal) | CPT/HCPCS: 71046 ==

== ENCOUNTER 2024-10-27 06:26 | Day surgery (SDC) | payer OTHER, MEDICARE, SELFPAY ==
[2024-10-27 12:12] VITALS: BMI 22.4
[2024-10-27 12:13] VITALS: BMI 22.4
[2024-10-27 12:14] VITALS: BP 176/110
[2024-10-27 12:15] VITALS: BP 176/108
[2024-10-27 12:29] LABS: Glucose - Point of Care 129 mg/dl (70-99)
[2024-10-27 14:03] VITALS: BP 171/102
[2024-10-27 14:15] VITALS: BP 167/122
[2024-10-27 14:30] VITALS: BP 176/102
== END 2024-10-27 14:47 | disposition home or self-care (01) ==
LOC: SDS 06:26
PROVIDERS: ATTENDING PHYSICIAN Internal Medicine
DX: D50.9 Iron deficiency anemia, unspecified (principal); Z53.8 Procedure and treatment not carried out for other reasons; K22.10 Ulcer of esophagus without bleeding; K44.9 Diaphragmatic hernia without obstruction or gangrene; K22.89 Other specified disease of esophagus; K31.89 Other diseases of stomach and duodenum; K25.9 Gastric ulcer, unspecified as acute or chronic, without hemorrhage or perforation; K29.80 Duodenitis without bleeding; K22.70 Barrett's esophagus without dysplasia
CPT/HCPCS: 43239; 45378; 88305; 82962; 88342